=== PATIENT | female | born 1950 | race Caucasian/White ===

== ENCOUNTER 2019-11-27 00:44 | Emergency (ER) | payer OTHER, SELFPAY ==
--- NOTE | ~2019-11-27 | CT_ITS ---
EXAMINATION: CT abdomen pelvis w con EXAM DATE: 11/27/2019 02:19 INDICATION: Left lower quadrant pain. TECHNIQUE: Spiral CT of the abdomen and pelvis was performed following intravenous injection of 100 m L Omnipaque 350. Axial, coronal and sagittal images were reviewed. The dose-length product (DLP) fo r this examination was 793.42 mGy-cm. The exposure was tailored according to patient size (auto mA e xposure control), and iterative reconstruction (ASIR) was used as additional dose reduction technique . There is no prior study for comparison. FINDINGS: Small nodule within each adrenal gland probably adenomas. Several liver cysts. The liver, spleen, adrenal glands and pancreas are otherwise unremarkable. Gallbladder is unremarkable. No claudia iary obstruction. Portal and splenic veins are patent. Kidneys enhance symmetrically. There is no hydronephrosis. The uterus is not identified and has likely been surgically resected. The bladder is unremarkable. There is no retroperitoneal or pelvic lymphadenopathy. There is moderate scattere d arteriosclerotic disease. The appendix is not positively visualized. There is no pericecal inflammatory change to suggest appe ndicitis. There is a moderate to large gastroesophageal hiatal hernia. There is large amount of r ight hemicolonic stool. Small amount of left hemicolonic stool. No obstructing colonic mass suspected , but could consider follow-up colonoscopy if not recently performed. There is mild to moderate sigmo id predominant colonic diverticulosis. There is no adjacent inflammatory change to suggest diverticu litis. The heart is normal in size. There are no pericardial or pleural effusions. The lung bases a re unremarkable. Scattered mixed osteoblastic and osteolytic vertebral body regions, largest in T8, T9, L1, L2, L4. This could be metastatic disease or Paget's disease. IMPRESSION: 1. Scattered vertebral body lesions, could be metastatic disease or Paget's disease. Consider bone s can, metastatic workup. 2. Moderate to large gastroesophageal hiatal hernia. 3. Large amount of right hemicolonic stool without obstructing mass identified. Constipation. Consid er colonoscopy if not recently performed. 4. Mild to moderate colonic diverticulosis. 5. Small adrenal lesions probably adenomas. Reviewed, dictated and finalized at location A. IMPRESSION: 1. Scattered vertebral body lesions, could be metastatic disease or Paget's di sease. Consider bone scan, metastatic workup. 2. Moderate to large gastroesophageal hiatal hernia. 3. Large amount of right hemicolonic stool without obstructing mass identified . Constipation. Consider colonoscopy if not recently performed. 4. Mild to moderate colonic diverticulosis. 5. Small adrenal lesions probably adenomas.
[2019-11-27 00:49] VITALS: BP 149/70; PULSE 80; RESP 16; TEMP 36.6; O2SAT 100
[2019-11-27 01:06] VITALS: BP 151/90; PULSE 68; RESP 16; O2SAT 99
--- NOTE | 2019-11-27 01:20 | ED.ABDPAIN ---
HPI - Abdominal Pain General Chief Complaint: Urogenital-Female Stated Complaint: possible kidney stone Time Seen by Provider: 11/27/19 01:07 Source: RN notes reviewed History of Present Illness HPI narrative: Patient presents emergency department from home for left lower quadrant pain. Patient states pain began 1 day ago. Pain is described as aching and radiates in the left back. Denies any fevers or chills nausea vomiting diarrhea dysuria or any other symptoms. States she has tried taking ibuprofen and Tylenol at home with no relief denies any other symptoms at this time Related Data Home Medications Medication Instructions Recorded Confirmed aspirin 81 mg tablet,delayed 81 mg PO DAILY 06/13/19 release cholecalciferol (vitamin D3) 125 5,000 unit PO DAILY 06/13/19 mcg (5,000 unit) tablet divalproex 500 mg tablet,delayed 500 mg PO TID tablet 06/13/19 release fenofibrate 160 mg tablet 160 mg PO DAILY 06/13/19 mupirocin 2 % topical ointment 1 applic TOPICAL TID 06/13/19 sitagliptin 100 mg tablet 100 mg PO DAILY 06/13/19 Allergies Allergy/AdvReac Type Severity Reaction Status Date / Time prochlorperazine Allergy Intermediate LOCK JAW Verified 06/13/19 11:19 Review of Systems Review of Systems: Narrative: Gen.: Denies fevers or chills ENT: Denies congestion Respiratory: Denies shortness of breath or cough CV: Denies chest pain or palpitations GI: See HPI denies burning, urgency, frequency or hematuria Musculoskeletal: Denies back pain or muscle pain Neuro: Denies numbness, tingling, weakness or focal weakness Skin: Denies rash Except as documented, all other systems reviewed and negative [facility] Past Medical History Medical History (Updated 11/27/19 @ 04:17 by Hammad Persaud DO) Hypertension Family History Family History (Updated 05/09/16 @ 08:27 by DOCTOR UNKNOWN) Mother Family history of malignant neoplasm of breast in first degree relative Other Family history of cardiovascular disease Family history of malignant neoplasm Hypertension Social History Social History Smoking packs per day: 1 Smoking cigarettes per day: 20.0 Years smoked: 30 Smoking pack-years: 30.00 Smoking status: Former smoker Second hand tobacco smoke exposure: No Smoking end date: 06/01/15 Alcohol intake: current Drinks per week: 1 Substance use: never Substance use type: does not use Gender identity (if verbalized by the patient): Female Exam Narrative: Exam Narrative: APPEARANCE: No acute distress, nontoxic, resting in bed HEENT: Normocephalic, atraumatic, OMM RESPIRATORY: No respiratory distress, clear to auscultation bilaterally with no rhonchi wheezing or rales CARDIOVASCULAR: RRR s murmur ABDOMINAL: Soft, nondistended, tender palpation left lower quadrant, no tenderness left upper quadrant, right upper quadrant right lower quadrant, no rebound or guarding MUSCULOSKELETAl: Moves all extremities. No clubbing, cyanosis or edema. Back: No midline thoracic lumbar tenderness palpation, tender palpation of the left paravertebral muscles L2 2 and 3 NEURO: Awake and alert. Following commands, speech normal, no focal deficits SKIN:: Warm, dry. Normal Color no rashes seen PSYCHIATRIC: Normal affect/mood Course Course Emergency Course: Reviewed old records. Patient with history of breast cancer Discussed with Dr. Mcknight presentation work-up. Discussed CT results with areas of sclerosis and vertebral bodies will follow as an outpatient Discussed with patient results of workup and diagnosis. Discussed need for follow-up with primary care, proper use of medication, and reasons to return to the emergency department. Patient understands and agrees to current treatment plan. Discussed with patient CT results discussed concern of possible metastatic disease need for further outpatient evaluation Secondary to renal disease now on
[2019-11-27] MEDS: SODIUM CHLORIDE 0.9% IV 1,000 ML 999 ML IV CONT (01:24)
[2019-11-27 01:51] LABS: Basophils Absolute Auto 0.1 K/mm3 (0.0-0.1); Eosinophils Absolute Auto 0.3 K/mm3 (0-0.3); Eosinophils Percent Auto 3.6 % (0-4.4); Hemoglobin 11.7 g/dL (12.0-15.0); Immature Granulocyte Absolute 0.02 K/mm3 (0.00-0.031); Immature Granulocyte Percent A 0.3 % (0-0.5); Lymphocytes Absolute Auto 2.26 K/mm3 (0.9-3.2); Lymphocytes Percent Auto 28.4 % (18.3-44.2); Mean Corpuscular HGB Conc 32.5 g/dl (32-36); Mean Corpuscular Hemoglobin 28.9 pg (26-34); Mean Corpuscular Volume 88.9 fl (80-100); Mean Platelet Volume 9.7 fl (7.4-10.4); Monocytes Absolute Auto 0.6 K/mm3 (0.1-0.6); Monocytes Percent Auto 7.3 % (2.6-8.5); Neutrophils Absolute Auto 4.7 K/mm3 (1.3-6.7); Neutrophils Percent Auto 59.4 % (45.5-73.1); Platelet Count Result 308 k/mm3 (150-375); Red Blood Count 4.05 M/mm3 (4.2-5.4); Red Cell Distribution Width 13.6 % (11.5-14.5)
[2019-11-27 01:53] LABS: Add Urine Microscopic? NO; Appearance Urine Clear (Clear); Bilirubin Urine Negative (Negative); Blood Urine Negative (Negative); Color Urine Yellow (Yellow); Glucose Urine UA Negative (Negative); Ketones Urine Negative (Negative); Leukocyte Esterase Ur Negative LEU/UL (Negative); Nitrate Urine Negative (Negative); Protein Urine Negative (Negative); Specific Grav Ur 1.014 (1.001-1.035); Urobilinogen Urine Negative mg/dL (<2.0)
[2019-11-27 02:02] LABS: Alanine Aminotransferase 13 U/L (4-35); Albumin Level 4.4 g/dL (3.5-5.1); Alkaline Phosphatase 52 U/L (38-126); Aspartate Amino Transferase 23 U/L (14-36); Bilirubin,Total 0.3 mg/dL (0.2-1.3); Blood Urea Nitrogen 32 mg/dL (7-17); Carbon Dioxide 24 mmol/L (22-30); Chloride 102 mmol/L (98-107); Estimated Glomerular Filt Rate 34; Glucose 122 mg/dL (65-105); Lipase 179 U/L (23-300); Potassium 4.2 mmol/L (3.4-5.0); Sodium 135 mmol/L (137-145)
[2019-11-27 03:10] VITALS: BP 189/95; PULSE 68; RESP 20; O2SAT 100
[2019-11-27 05:07] VITALS: BP 184/87; PULSE 81; RESP 18; O2SAT 100
== END 2019-11-27 05:05 | disposition home or self-care (01) ==
PROVIDERS: Emergency Provider Emergency Medicine; PCP Family Medicine
DX: R10.32 Left lower quadrant pain (principal); M54.5 Low back pain; I10 Essential (primary) hypertension; Z87.891 Personal history of nicotine dependence; Z79.82 Long term (current) use of aspirin
CPT/HCPCS: 36415; 74177; 80053; 81003; 83690; 85025; 96361; 96374; 99284; J0131; J7030; Q9967

== ENCOUNTER 2019-12-14 11:17 | Outpatient (CLI) | payer OTHER, SELFPAY ==
--- NOTE | ~2019-12-14 | NM_ITS ---
EXAMINATION: NM bone scan whole body DATE: 12/14/2019 14:26 INDICATION: MGUS. Lytic bone lesions on radiographs. TECHNIQUE: 20.8 mCi Tc-99m HDP was administered intravenously. Delayed whole-body scintigrams were o btained. COMPARISON: CT abdomen and pelvis dated 11/27/2019 FINDINGS: There is increased bone uptake associated with multiple mixed lytic and sclerotic bone lesions includ ing at T8, T9, L1, L2 and L4. Additional uptake at T7 which cause of imaging is not available. More t ypical pattern of mild likely degenerative joint centered uptake at the bilateral sternoclavicular ar ticulations, the radial aspect of the bilateral carpi, at the bilateral knees and at the multiple vimal nts in the bilateral feet most prominent at the mid feet and left first metatarsophalangeal joint. Sm all focus of increased uptake at the left elbow could also be related to osteoarthritis or extravasat ion at the site of radiotracer injection. Mild increased uptake at the left greater trochanter withou t definitive radiologic correlate which could be related to either enthesopathy or additional metasta tic disease. IMPRESSION: 1. Increased uptake associated with multiple mixed lytic and sclerotic vertebral body lesions in the lumbar and lower thoracic spine with appearance on CT most suspicious for metastatic disease 2. Additional typical pattern of scattered likely degenerative joint centered uptake at the bilateral sternoclavicular joints and at multiple joints in the extremities. Reviewed, dictated and finalized at location A. IMPRESSION: 1. Increased uptake associated with multiple mixed lytic and sclerotic vertebra l body lesions in the lumbar and lower thoracic spine with appearance on CT mos t suspicious for metastatic disease 2. Additional typical pattern of scattered likely degenerative joint centered u ptake at the bilateral sternoclavicular joints and at multiple joints in the ex tremities.
== END 2019-12-14 11:18 | disposition home or self-care (01) ==
PROVIDERS: PCP Family Medicine; Visit Provider Internal Medicine Medical Oncology
DX: D47.2 Monoclonal gammopathy (principal); M54.5 Low back pain; M89.9 Disorder of bone, unspecified
CPT/HCPCS: 78306; A9561

== ENCOUNTER → 2020-01-02 12:13 | Outpatient (CLI) | payer OTHER, SELFPAY ==
--- NOTE | ~2020-01-02 | MR_ITS ---
EXAMINATION: MR thoracic spine wo con EXAM DATE: 01/02/2020 13:11 INDICATION: Monoclonal gammopathy. TECHNIQUE: Multi-sequential, multiplanar MR images of the thoracic spine were obtained without contra st. Sagittal T1, T2, T2 fat saturation, axial T2 weighted images reviewed. There is no prior study for comparison. FINDINGS: Large lesion within the T9 vertebral body, small lesion within T8. No epidural extension. T horacic spinal canal is widely patent. Mild thoracic disc disease. The vertebral body heights are alessandra ntained. There is mild right neural foraminal stenosis at T8-9 and 9-10. The vertebral bodies are ali gned in the AP dimension. The spinal cord signal intensity and intrinsic morphology is normal. There is mild thoracic facet arthropathy. Large gastroesophageal hiatal hernia. Paraspinal soft tissue is u nremarkable. IMPRESSION: T8 and T9 metastatic lesions without epidural extension. Mild thoracic spondylosis. Reviewed, dictated and finalized at location A. IMPRESSION: T8 and T9 metastatic lesions without epidural extension. Mild thor acic spondylosis.
--- NOTE | ~2020-01-02 | MR_ITS ---
EXAMINATION: MR lumbar spine wo con EXAM DATE: 01/02/2020 13:18 INDICATION: Severe mid to low back pain, for couple of months. Monoclonal gammopathy. History of mandi st cancer. TECHNIQUE: Multi-sequential, multiplanar MR images of the lumbar spine were obtained without contrast . Sagittal T1, T2, T2 fat saturation images. Axial T2 weighted images. There is no prior study for comparison. FINDINGS: There are bone sizable bone lesions within the L1 and L4 vertebral bodies, smaller in the l eft side of the L2 vertebral body and the L5 vertebral body superior endplate. No extraosseous extens ion. The conus medullaris terminates at the L1/2 level and has normal signal intensity and morphology . There is chronic L5 spondylolysis bilaterally with 6 mm anterolisthesis L5 on S1. Mild to moderate lumbar disc disease. Level by level evaluation: T12-L1: There is a minimal diffuse disc bulge. Facet arthropathy: Mild. Neural foraminal stenosis: No stenosis. Central canal stenosis: No stenosis. L1-L2: There is a minimal diffuse disc bulge. Facet arthropathy: Mild to moderate. Neural foraminal stenosis: No stenosis. Central canal stenosis: No stenosis. L2-L3: There is a mild diffuse disc bulge. Facet arthropathy: Mild to moderate. Neural foraminal stenosis: Mild bilateral. Central canal stenosis: Mild. L3-L4: There is a mild diffuse disc bulge. Facet arthropathy: Mild to moderate. Neural foraminal stenosis: Mild bilateral. Central canal stenosis: Mild. L4-L5: There is a moderate diffuse disc bulge asymmetric to the left Facet arthropathy: Mild to moderate. Neural foraminal stenosis: Mild to moderate bilateral. Central canal stenosis: Mild. L5-S1: There is a moderate diffuse disc bulge. Facet arthropathy: Mild to moderate. Neural foraminal stenosis: Mild to moderate bilateral. Central canal stenosis: Mild. IMPRESSION: 1. Scattered metastatic disease without evidence of extraosseous epidural extension. 2. L5 bilateral spondylolysis, grade 1 anterolisthesis. 3. Mild to moderate lumbar spondylosis. Reviewed, dictated and finalized at location A. IMPRESSION: 1. Scattered metastatic disease without evidence of extraosseous epidural exte nsion. 2. L5 bilateral spondylolysis, grade 1 anterolisthesis. 3. Mild to moderate lumbar spondylosis.
== END ==
PROVIDERS: Visit Provider Internal Medicine Medical Oncology
DX: D47.2 Monoclonal gammopathy (principal); C50.919 Malignant neoplasm of unspecified site of unspecified female breast; M47.816 Spondylosis without myelopathy or radiculopathy, lumbar region; C79.51 Secondary malignant neoplasm of bone
CPT/HCPCS: 72146; 72148

== ENCOUNTER 2020-01-02 13:39 | Outpatient (CLI) | payer OTHER, SELFPAY ==
[2020-01-02 14:31] LABS: Alanine Aminotransferase 17 U/L (4-35); Alkaline Phosphatase 45 U/L (38-126); Anion Gap 13.8 mmol/L (7-16); Aspartate Amino Transferase 25 U/L (14-36); Bilirubin,Total 0.2 mg/dL (0.2-1.3); Blood Urea Nitrogen 30 mg/dL (7-17); Calcium 9.7 mg/dL (8.4-10.2); Carbon Dioxide 24 mmol/L (22-30); Chloride 102 mmol/L (98-107); Estimated Glomerular Filt Rate 37; Glucose 96 mg/dL (65-105); Potassium 4.8 mmol/L (3.4-5.0); Sodium 135 mmol/L (137-145)
[2020-01-02 15:01] LABS: Carcinoembryonic Antigen 41.9 ng/mL (0.0-3.0)
[2020-01-05 13:20] LABS: CA 15-3 44 U/mL (<32)
== END 2020-01-02 13:40 | disposition home or self-care (01) ==
PROVIDERS: PCP Family Medicine; Visit Provider Internal Medicine Medical Oncology
DX: C50.919 Malignant neoplasm of unspecified site of unspecified female breast (principal)
CPT/HCPCS: 36415; 80053; 82378; 86300

== ENCOUNTER 2020-03-16 16:24 | Outpatient (CLI) | payer OTHER, SELFPAY ==
--- NOTE | ~2020-03-16 | MR_ITS ---
EXAMINATION: MR brain/brain stem wo con EXAM DATE: 03/16/2020 17:16 INDICATION: Initial encounter following injury, with pain of the and intractable headaches. TECHNIQUE: Magnetic resonance imaging (MRI) of the brain/brain stem obtained without contrast. Sagitt al T1, axial diffusion, gradient echo (T2*), T1, T2, FLAIR sequences obtained. There is no prior kait dy for comparison. FINDINGS: There are no areas of restricted diffusion to suggest acute infarction. There is a right-si ded choroidal fissure cyst. There is no acute hemorrhage seen on the T2*, a hemosiderin sensitive seq uence. No intraparenchymal brain mass. The ventricles are normal in size. There are no extra-axial collections. Flow voids are seen in the cerebral arteries on the T2-weighted sequences consistent wi th their expected patency. The orbits are unremarkable. Soft tissue is unremarkable. Mild ethmoid mucoperiosteal thickening. IMPRESSION: 1. Unremarkable brain MRI examination. Reviewed, dictated and finalized at location A.
== END 2020-03-16 16:25 | disposition home or self-care (01) ==
PROVIDERS: PCP Family Medicine; Visit Provider Internal Medicine Medical Oncology
DX: R51.9 Headache, unspecified (principal)
CPT/HCPCS: 70551

== ENCOUNTER 2021-03-08 12:34 | Outpatient (CLI) | payer OTHER, SELFPAY ==
--- NOTE | ~2021-03-08 | CT_ITS ---
EXAMINATION: CT brain wo con DATE: 03/08/2021 12:56 INDICATION: Breast malignancy with metastases TECHNIQUE: Computed tomography (CT) of the head was performed without intravenous contrast. The mA wa s adjusted according to patient size. Iterative reconstruction technique was employed. Exam dose: 60 5.33 mGy-cm total exam DLP. COMPARISON: 03/16/2020 MRI brain/brainstem FINDINGS: No intracranial mass lesion or hemorrhage or cerebrovascular accident. No midline shift or mass effect. Prominent right choroidal fissure cyst. There is prominent bilateral carotid siphon internal carotid artery calcification as well as vertebra l and basilar artery calcification. There is nonspecific diminished attenuation of the cerebral white matter, likely due to chronic small vessel ischemic changes. No subdural or epidural hematoma is detected. Iliolumbar 4 cm polyp or mucous retention cyst of left maxillary sinus. The mastoid air cells and inc luded paranasal sinuses are otherwise unremarkable. No fracture or bone destruction of the cranial vault. IMPRESSION: Cerebral atherosclerosis and chronic small vessel ischemic changes of the cerebral white matter Reviewed, dictated and finalized at Location A. Reviewed, dictated and finalized at location A.
--- NOTE | ~2021-03-08 | CT_ITS ---
EXAMINATION: CT chest abdomen pelvis wo con DATE: 03/08/2021 12:57 INDICATION: Metastatic breast cancer, shortness of breath TECHNIQUE: Transaxial computed tomographic images of the chest, abdomen, and pelvis were obtained wit hout intravenous contrast. The dose-length product (DLP) was 977.10 mGy-cm. Automated exposure contro l and iterative reconstruction technique were employed. COMPARISON: 11/27/2019 FINDINGS: CHEST CT: The lungs are free of acute opacities. There is a chronic area of focal architectural distortion in t he left lower lobe without significant change. No pleural effusion or pneumothorax is identified. The heart size is normal. Calcified coronary artery atherosclerosis is noted. A left axillary lymph node is upper limits of normal in size measuring 10 mm. There are changes of bilateral mastectomy. There is a moderate-sized sliding hiatal hernia. There are sclerotic vertebral body lesions of T8 and T9. ABDOMEN/PELVIS CT: Cysts of the liver measure up to 3.7 cm in the right hepatic lobe. The spleen, pancreas, and gallblad joyce are normal. Small stable nodules in the adrenal glands are consistent with adenomas. The kidneys are unremarkable. There is calcified atherosclerosis of the aorta and many of the other arteries. No pathologically enlarged abdominal or pelvic lymph nodes are identified. There is no free intraperiton eal gas or evidence of bowel obstruction. Colonic diverticulosis is present without evidence of diver ticulitis. Sclerotic lesions of L1 and L4 are unchanged. There are bilateral L5 pars defects with gra de 1 anterolisthesis of L5 on S1. IMPRESSION: 1. Stable sclerotic vertebral body lesions without activity on interval bone scan. 2. No significant findings in the chest, abdomen, or pelvis. Reviewed, dictated and finalized at location F. IMPRESSION: 1. Stable sclerotic vertebral body lesions without activity on interval bone sc an. 2. No significant findings in the chest, abdomen, or pelvis.
== END 2021-03-08 12:35 | disposition home or self-care (01) ==
LOC: ANHIMG 12:40
PROVIDERS: PCP Family Medicine; Visit Provider Internal Medicine Medical Oncology
DX: C50.919 Malignant neoplasm of unspecified site of unspecified female breast (principal); R42 Dizziness and giddiness; M89.9 Disorder of bone, unspecified; I67.2 Cerebral atherosclerosis
CPT/HCPCS: 70450; 71250; 74176

== ENCOUNTER 2021-05-20 12:47 | Outpatient (CLI) | payer OTHER, SELFPAY ==
--- NOTE | ~2021-05-20 | CT_ITS ---
EXAMINATION: CT chest abdomen pelvis wo con DATE: 05/20/2021 13:10 INDICATION: Restaging of malignant metastatic breast cancer with bone metastases TECHNIQUE: Computed tomography (CT) of the chest, abdomen, and pelvis was performed without intraveno us contrast. Automated exposure control and iterative reconstruction technique were employed. Exam do se: 1162.23 mGy-cm total exam DLP. COMPARISON: 03/08/2021 CT chest abdomen pelvis 11/27/2019 CT abdomen pelvis FINDINGS: CHEST CT: The lungs are clear of infiltrate or consolidation or mass lesion. There is chronic focal scarring in the left lower lobe, stable since 03/28/2021 and 11/19/2019. There is prominent coronary artery calcification as well as thoracic aortic and great vessel calcific ation. Normal heart size. No hilar or mediastinal mass lesion or lymphadenopathy. There is a large sliding hiatal hernia. ABDOMEN/PELVIS CT: Several hepatic cysts previously reported measuring up to 3.7 cm are noted, including the largest in the lower aspect of the right hepatic lobe and 2.5 cm left hepatic cysts. No interval hepatic space-o ccupying mass lesion. The gallbladder is unremarkable. No bile duct or pancreatic duct dilatation. No pancreatic mass lesio n or calcification. Normal splenic size. The adrenal glands appears stable with suggestion of possibl e small adrenal adenomas. No renal mass lesion or urinary tract calculus or hydroureteronephrosis is detected. The urinary blad joyce is unremarkable. Status post hysterectomy. There is atherosclerotic calcification of the abdominal aorta and branches but no abdominal aortic an eurysm. No intraperitoneal or retroperitoneal or pelvic mass lesion or adenopathy or ascites. There are numerous diverticula involving primarily the left colon; no CT evidence of diverticulitis. No bowel obstruction, bowel wall thickening, pneumatosis or intraperitoneal free air. There are sclerotic lesions of T8, T9, L1, L4 and L5, stable since 03/08/2021. Bilateral L5 pars interarticularis defects and grade 1 anterolisthesis as well as degenerative disc d isease at L5-S1. IMPRESSION: Stable sclerotic lesions of the thoracic and lumbar spine consistent with metastatic dis ease, not significantly changed since 03/08/2021 Chronic focal scarring, left lower lobe Prominent atherosclerosis Large sliding hiatal hernia Stable hepatic cysts Probable small adrenal adenomas Status post hysterectomy Diverticulosis of the colon; no CT evidence of diverticulitis Reviewed, dictated and finalized at Location A. Reviewed, dictated and finalized at location B. 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
== END 2021-05-20 12:48 | disposition home or self-care (01) ==
LOC: ANHIMG 12:51
PROVIDERS: PCP Family Medicine; Visit Provider Internal Medicine Medical Oncology
DX: M47.817 Spondylosis without myelopathy or radiculopathy, lumbosacral region (principal); K44.9 Diaphragmatic hernia without obstruction or gangrene; K76.89 Other specified diseases of liver; M89.8X9 Other specified disorders of bone, unspecified site; I70.0 Atherosclerosis of aorta
CPT/HCPCS: 71250; 74176

== ENCOUNTER 2021-07-17 12:29 | Outpatient (CLI) | payer OTHER, SELFPAY ==
--- NOTE | ~2021-07-17 | MR_ITS ---
EXAMINATION: MR lumbar spine wo con EXAM DATE: 07/17/2021 13:38 INDICATION: Malignant Neoplasm Of Female Breast . Monoclonal gammopathy. Metastatic disease on CT dominique st abdomen pelvis. TECHNIQUE: Multi-sequential, multiplanar MR images of the lumbar spine were obtained without contrast . Sagittal T1, T2, T2 fat saturation images. Axial T2 weighted images. Comparison is made to prior examination from 01/02/2020. FINDINGS: There is metastatic disease taking up sizable portion of the L1 and L4 vertebral bodies, sm aller regions in the L2 and L5 vertebral bodies. There may be minimal interval progression compared t o 2019, but no extraosseous extension. There is chronic bilateral L5 spondylolysis with grade 1 anter olisthesis L5 on S1 and moderate right neural foraminal stenosis at that level. Mild to moderate L4-5 left-sided and L3-4 right-sided neural foraminal stenosis. Less at the other lumbar levels. Moderate facet arthropathy from L3-S1. Moderate loss of the disc height from L3-S1. There are moderate disc b ulges at L4-5 and L5-S1. The conus medullaris terminates at the L1/2 level and has normal signal inte nsity and morphology. IMPRESSION: 1. Lumbar metastatic disease, minimal progression compared to 2019. 2. Moderate lower lumbar spondylosis, with mild interval progression in right L5-S1 neural foraminal stenosis. Reviewed, dictated and finalized at location G. 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
== END 2021-07-17 12:30 | disposition home or self-care (01) ==
PROVIDERS: PCP Family Medicine; Visit Provider Internal Medicine Medical Oncology
DX: C50.919 Malignant neoplasm of unspecified site of unspecified female breast (principal); M54.50 Low back pain, unspecified; C79.51 Secondary malignant neoplasm of bone; M47.816 Spondylosis without myelopathy or radiculopathy, lumbar region; M48.07 Spinal stenosis, lumbosacral region
CPT/HCPCS: 72148

== ENCOUNTER 2021-08-29 11:00 | Outpatient (RCR) | payer OTHER, SELFPAY ==
[2021-07-16 11:01] VITALS: BMI 34.3
[2021-07-16 15:16] VITALS: BMI 34.3
== END 2021-10-01 10:22 | disposition home or self-care (01) ==
LOC: ANHDMC 11:00
PROVIDERS: PCP Family Medicine; Visit Provider Physician Assistant
DX: E11.22 Type 2 diabetes mellitus with diabetic chronic kidney disease (principal); Z71.3 Dietary counseling and surveillance; Z71.89 Other specified counseling
CPT/HCPCS: 97802; G0108

== ENCOUNTER 2021-09-11 10:13 | Outpatient (CLI) | payer OTHER, SELFPAY ==
[2021-09-11 10:36] LABS: Basophils Absolute Auto 0.1 K/mm3 (0.0-0.1); Basophils Percent Auto 0.9 % (0.2-1.2); Eosinophils Absolute Auto 0.3 K/mm3 (0-0.3); Eosinophils Percent Auto 4.6 % (0-4.4); Hematocrit 35.2 % (37.0-47.0); Hemoglobin 10.8 g/dL (12.0-15.0); Immature Granulocyte Absolute 0.02 K/mm3 (0.00-0.031); Immature Granulocyte Percent A 0.3 % (0-0.5); Lymphocytes Absolute Auto 0.93 K/mm3 (0.9-3.2); Lymphocytes Percent Auto 15.9 % (18.3-44.2); Mean Corpuscular HGB Conc 30.7 g/dl (32-36); Mean Corpuscular Hemoglobin 26.3 pg (26-34); Mean Corpuscular Volume 85.9 fl (80-100); Mean Platelet Volume 9.4 fl (7.4-10.4); Monocytes Absolute Auto 0.5 K/mm3 (0.1-0.6); Monocytes Percent Auto 8.4 % (2.6-8.5); Neutrophils Absolute Auto 4.1 K/mm3 (1.3-6.7); Neutrophils Percent Auto 69.9 % (45.5-73.1); Platelet Count Result 190 k/mm3 (150-375); Red Cell Distribution Width 15.7 % (11.5-14.5); White Blood Count 5.9 K/mm3 (4.5-10.0)
[2021-09-11 10:53] LABS: Alanine Aminotransferase 11 U/L (4-35); Albumin Level 4.2 g/dL (3.5-5.1); Alkaline Phosphatase 54 U/L (38-126); Anion Gap 9 mmol/L (8-16); Aspartate Amino Transferase 22 U/L (14-36); Bilirubin,Total 0.4 mg/dL (0.2-1.3); Blood Urea Nitrogen 37 mg/dL (7-17); Calcium 9.5 mg/dL (8.4-10.2); Carbon Dioxide 26 mmol/L (22-30); Chloride 99 mmol/L (98-107); Estimated Glomerular Filt Rate 26; Glucose 210 mg/dL (65-110); Potassium 4.2 mmol/L (3.4-5.0); Sodium 134 mmol/L (137-145)
[2021-09-11 10:55] LABS: Hemoglobin A1C 6.8 % (<5.7)
[2021-09-11 11:02] LABS: Appearance Urine Clear (Clear); Bilirubin Urine Negative (Negative); Color Urine Yellow (Yellow); Glucose Urine UA Negative (Negative); Ketones Urine Negative (Negative); Leukocyte Esterase Ur Negative LEU/UL (NEGATIVE); Nitrate Urine Negative (Negative); Protein Urine Negative (Negative); Specific Grav Ur >= 1.030 (1.001-1.035); Urobilinogen Urine 0.2 mg/dL (<2.0); pH Urine 5.5 (5.0-9.0)
[2021-09-11 11:03] LABS: Add Urine Microscopic? YES; Blood Urine Trace-Intact (Negative)
[2021-09-11 11:11] LABS: Mucus Urine Rare /lpf; RBC Urine 0-2 /hpf (0-2); Squamous Epithelial Cell Urine Rare /hpf (Few)
== END 2021-09-11 10:14 | disposition home or self-care (01) ==
LOC: ANHLAB 10:16
PROVIDERS: PCP Family Medicine; Visit Provider Physician Assistant
DX: R42 Dizziness and giddiness (principal); E11.22 Type 2 diabetes mellitus with diabetic chronic kidney disease; I10 Essential (primary) hypertension; R53.1 Weakness
CPT/HCPCS: 36415; 80053; 81001; 83036; 84443; 85025; 87086; 87088

== ENCOUNTER 2021-09-20 13:58 | Outpatient (CLI) | payer OTHER, SELFPAY ==
--- NOTE | ~2021-09-20 | US_ITS ---
EXAMINATION: US carotid duplex BI DATE: 09/20/2021 15:08 INDICATION: Dizziness and giddiness. Cerebral atherosclerosis. TECHNIQUE: Grayscale, color Doppler, and pulsed Doppler images of the cervical carotid arteries were obtained. The degree of vessel stenosis is placed in one of the following categories: normal, <50%, 5 0-69%, >=70% but less than near-occlusion, near-occlusion, or total occlusion. Note that percent sten osis relative to normal distal artery lumen diameter is indirectly measured from velocity measurement s as described by Greg, et al. Radiology 2003; 229:340-346. COMPARISON: None. FINDINGS: RIGHT: The right common carotid artery (CCA) peak systolic velocity (PSV) is 53 cm/s. The right internal car otid artery (ICA) PSV is 76 cm/s. The right ICA end-diastolic velocity (EDV) is 19 cm/s. The right IC A/CCA PSV ratio is 1.4. Grayscale and color Doppler images yield an estimate of <50% diameter reducti on from plaque in the ICA. The external carotid artery (ECA) PSV is 117 cm/s. There is antegrade flow in the right vertebral artery. LEFT: The left CCA PSV is 50 cm/s. The left ICA PSV is 81 cm/s. The left ICA EDV is 16 cm/s. The left ICA/C CA PSV ratio is 1.6. Grayscale and color Doppler images yield an estimate of <50% diameter reduction from plaque in the ICA. The ECA PSV is 85 cm/s. There is antegrade flow in the left vertebral artery. IMPRESSION: 1. <50% stenosis in the right internal carotid artery. 2. <50% stenosis in the left internal carotid artery. Reviewed, dictated and finalized at location A.
== END 2021-09-20 13:59 | disposition home or self-care (01) ==
LOC: ANHIMG 14:02
PROVIDERS: PCP Family Medicine; Visit Provider Physician Assistant
DX: R42 Dizziness and giddiness (principal); H53.139 Sudden visual loss, unspecified eye; I65.23 Occlusion and stenosis of bilateral carotid arteries
CPT/HCPCS: 93880

== ENCOUNTER 2021-10-16 09:41 | Outpatient (CLI) | payer OTHER, SELFPAY ==
--- NOTE | ~2021-10-16 | CT_ITS ---
EXAMINATION: CT brain wo con DATE: 10/16/2021 10:00 INDICATION: Dizziness. Sudden visual loss. TECHNIQUE: Computed tomography (CT) of the head was performed without intravenous contrast. The dose- length product was 605.33 mGy-cm. Automated exposure control and iterative reconstruction technique w ere employed. COMPARISON: CT dated 03/08/2021 and MRI dated 03/16/2020 FINDINGS: Brain parenchymal volume is normal for age. Prominent right choroidal fissure. There are sc attered mild periventricular and subcortical white matter changes, most likely related to small vesse l ischemic disease (microangiopathy). There is intracranial atherosclerosis. Orbits are symmetric wit hout disconjugate gaze. No acute intracranial hemorrhage, infarction, mass or mass effect. Paranasal sinuses and mastoids are pneumatized. IMPRESSION: 1. No acute intracranial abnormality. Reviewed, dictated and finalized at location A.
== END 2021-10-16 09:42 | disposition home or self-care (01) ==
PROVIDERS: PCP Family Medicine; Visit Provider Physician Assistant
DX: G45.9 Transient cerebral ischemic attack, unspecified (principal); R42 Dizziness and giddiness
CPT/HCPCS: 70450

== ENCOUNTER 2022-01-21 12:28 | Outpatient (CLI) | payer OTHER, SELFPAY ==
--- NOTE | ~2022-01-21 | XR_ITS ---
EXAMINATION: XR chest 2V DATE: 01/21/2022 12:52 INDICATION: Shortness of breath, history of breast cancer TECHNIQUE: PA and lateral views of the chest are obtained. COMPARISON: CT, 05/20/2021 FINDINGS: There is a 9 mm opacity projecting over the right midlung zone. No pleural effusion or pneu mothorax. There is a moderate-sized hiatal hernia. The heart size is normal. Sclerotic osseous metast ases are noted in the thoracic spine. IMPRESSION: 1. 9 mm opacity projecting over the right midlung zone which could reflect lung nodule versus sclerot ic rib lesion. 2. Moderate-sized hiatal hernia. 3. Sclerotic vertebral body metastases. Reviewed, dictated and finalized at location B. IMPRESSION: 1. 9 mm opacity projecting over the right midlung zone which could reflect lung nodule versus sclerotic rib lesion. 2. Moderate-sized hiatal hernia. 3. Sclerotic vertebral body metastases.
== END 2022-01-21 12:29 | disposition home or self-care (01) ==
LOC: ANHIMG 12:35
PROVIDERS: PCP Family Medicine; Visit Provider Physician Assistant
DX: R06.09 Other forms of dyspnea (principal); R91.8 Other nonspecific abnormal finding of lung field; K44.9 Diaphragmatic hernia without obstruction or gangrene; C79.51 Secondary malignant neoplasm of bone
CPT/HCPCS: 71046

== ENCOUNTER 2022-01-27 09:36 | Outpatient (CLI) | payer OTHER, SELFPAY ==
--- NOTE | ~2022-01-27 | CT_ITS ---
EXAMINATION: CT chest abdomen pelvis wo con DATE: 01/27/2022 10:55 INDICATION: Malignant neoplasm of female breast. TECHNIQUE: Computed tomography (CT) of the chest, abdomen, and pelvis was performed without intraveno us contrast. Automated exposure control and iterative reconstruction technique were employed. The dos e-length product was 1067.45 mGy-cm. COMPARISON: CT chest, abdomen, and pelvis 05/20/2021, CT abdomen and pelvis 11/27/19 FINDINGS: CHEST CT: There is mild scarring at left lung apex. There is mild atelectasis in left lower lobe. There is a 16 mm groundglass opacity in left lower lobe, likely benign. There are a few chronic nodules in the manas gs measuring up to 3 mm. No pleural effusion. The heart size is normal. There are coronary artery miya cifications. There are calcifications of the aortic valve. There is ectasia of ascending aorta measur ing 4.2 cm. No pericardial effusion. There is a moderate-sized sliding hiatal hernia. There are bilat eral mastectomies. There is a ruptured implant in left breast. There are a few scattered sclerotic le sions of bone including in right eighth rib, T7 spinous process, and T8 and T9 vertebral bodies. ABDOMEN/PELVIS CT: There are cysts in the liver measuring up to 3.3 cm. There are more than 10 masses in the liver measu ring up to 17 mm. The gallbladder, spleen, pancreas, and adrenal glands are normal. There is cortical thinning of the kidneys. There is diverticulosis of the colon without evidence of diverticulitis. Th ere are no dilated loops of bowel. The appendix is not visualized. There are no pathologically enlarg ed lymph nodes. There is no free intraperitoneal fluid. There is areas of subcutaneous fat necrosis i n the buttocks. There are a few scattered sclerotic lesions of bone including in L1, L2, L4, and L5 v ertebral bodies. IMPRESSION: 1. Worsened liver masses and stable bone lesions, consistent with metastatic disease. Reviewed, dictated and finalized at location A. IMPRESSION: 1. Worsened liver masses and stable bone lesions, consistent with metastatic di sease.
[2022-01-27 10:03] LABS: Estimated Glomerular Filt Rate 28
== END 2022-01-27 09:37 | disposition home or self-care (01) ==
PROVIDERS: PCP Family Medicine; Visit Provider Internal Medicine Medical Oncology
DX: C50.919 Malignant neoplasm of unspecified site of unspecified female breast (principal); C79.51 Secondary malignant neoplasm of bone; R16.0 Hepatomegaly, not elsewhere classified
CPT/HCPCS: 71250; 74176

== ENCOUNTER 2022-02-14 13:02 | Outpatient (CLI) | payer OTHER, SELFPAY ==
--- NOTE | 2022-02-17 14:08 | P.PCNPFT_ITS ---
PFT Procedure Performed PFT Procedure Performed Spirometry with Pre/Post Bronchodilator Plethysmography (Lung Vol) Diffusing Cap (DLCO) Flow Vol Loop PFT Interpretation This is a pulmonary function test with pre and post-bronchodilator spirometry, plethysmography and diffusing capacity. The test was performed and results interpreted in accordance with the 2019 and 2005 ATS/ERS Task Force guidelines respectively using the Global Lung Function Initiative-2012 reference equations. Patient demonstrated good effort and cooperation. Reproducibility criteria were met. The quality of the pre bronchodilator spirometry maneuver was Grade A and post bronchodilator spirometry maneuver was Grade A. Findings: Spirometry: There is decreased maximal expiratory airflow at all lung volumes with concave expiratory flow tracing. The pre bronchodilator FVC is 2.05 L, 71% predicted. The pre bronchodilator FEV1 is 1.06 L, 48% predicted. The pre bronchodilator FEV1: FVC ratio is 52%. The post bronchodilator FVC is 2.38 L, representing a 16% increase. The post bronchodilator FEV1 is 1.33 L, representing a 25% increase. The post bronchodilator FEV1: FVC ratio is 56%. Plethysmography: The total lung capacity is 5.09 L, 98% predicted. The functional residual capacity is 3.69 L, 124% predicted. The residual volume is 3.04 L, 134% predicted. Diffusion capacity: The diffusing capacity unadjusted for hemoglobin and carboxyhemoglobin is 10.1, 49% predicted. The diffusing capacity adjusted for a lveolar volume is 2.99, 71% predicted. Impression: There is a severe obstructive abnormality with significant improvement after inhaling a single dose of albuterol. The lung volumes are normal. The diffusing capacity unadjusted for hemoglobin and carboxyhemoglobin is moderately decreased and normalizes when adjusted for alveolar volume. There are no prior studies for comparison
== END 2022-02-14 13:03 | disposition home or self-care (01) ==
LOC: ANHPFT 13:04
PROVIDERS: PCP Family Medicine; Visit Provider Physician Assistant
DX: R06.09 Other forms of dyspnea (principal)
CPT/HCPCS: 94060; 94726; 94729

== ENCOUNTER 2022-02-20 01:46 | Day surgery (SDC) | payer OTHER, SELFPAY ==
[2022-02-04 15:06] VITALS: BMI 31.5
--- NOTE | 2022-02-19 13:44 | PM.HPGS ---
History of Present Illness History of Present Illness Consent: Risks, benefits, and alternatives have been discussed and questions answered. Patient agrees to proceed with procedure. Chief complaint: GERD, melena, change in bowel habits Narrative: Shahnaz Newell is a 71 year old female Referred for Endoscopy and colonoscopy due to change in bowel habits. She recently had black, tarry stools for a few days. she has had a great deal of heartburn. She was taking Prilosec for years but had been switched to pantoprazole sometime ago. She still gets a quite a bit of heartburn. Her oncologist started her on sucralfate. She occasionally has difficulty swallowing but is primarily with carbonation. 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 Metastatic breast cancer Wellness examination Family History Family History Mother Family history of malignant neoplasm of breast in first degree relative Other Family history of cardiovascular disease Family history of malignant neoplasm Hypertension Social History Social History Smoking packs per day: 1 Smoking cigarettes per day: 20.0 Years smoked: 30 Smoking pack-years: 30.00 Smoking status: Never smoker Tobacco type: cigarettes Second hand tobacco smoke exposure: No Smoking end date: 06/01/15 Alcohol intake: current Drinks per week: 1 Alcohol use details: rare Substance use: never Substance use type: does not use Living arrangements: alone Gender identity (if verbalized by the patient): Female Sexual Orientation (if Verbalized by the Patient): Straight or Heterosexual Spiritual care concerns: No Meds Home Medications and Allergies Home Medications Medication Instructions Recorded Confirmed Type polyethylene glycol 3350 17 17 gm PO DAILY #119 grams 11/27/19 02/04/22 Rx gram/dose oral powder (Miralax) lorazepam 0.5 mg tablet 0.5 mg PO DAILY PRN Anxiety 09/12/20 02/04/22 History blood sugar diagnostic (Contour #100 ea 12/07/20 02/04/22 Rx Next Test Strips) bupropion HCl 300 mg 24 hr tablet, See Rx Instructions .Route 12/25/20 02/04/22 Rx extended release .COMPLEX #90 tabs insulin glargine 100 unit/mL (3 40 unit (0.4 mL) subcut QPM #15 mL 09/03/21 02/04/22 Rx mL) subcutaneous pen (Lantus Solostar U-100 Insulin) pen needle, diabetic 32 gauge x #300 ea 09/04/21 02/04/22 Rx /32 (BD Hortensia 2nd Gen Pen Needle) buspirone 10 mg tablet 10 mg PO BID #1 tablet 09/11/21 02/04/22 Rx hydroxyzine HCl 10 mg tablet 10 mg PO TID PRN anxiety #1 tablet 09/11/21 02/04/22 Rx albuterol sulfate 90 mcg/actuation 1 inh inhalation Q4H PRN shortness 10/08/21 02/04/22 Rx aerosol inhaler of breath or wheezing #8.5 grams aspirin 81 mg tablet,delayed 81 mg PO DAILY #90 tabs 10/08/21 02/04/22 Rx release metoprolol tartrate 25 mg tablet 25 mg PO BID #180 tabs 10/08/21 02/04/22 Rx cholecalciferol (vitamin D3) 125 5,000 unit PO DAILY #90 tabs 10/09/21 02/04/22 Rx mcg (5,000 unit) tablet pantoprazole 40 mg tablet,delayed 40 mg PO BID #180 tabs 12/20/21 02/04/22 Rx release (Protonix) rosuvastatin 40 mg tablet 40 mg PO DAILY #90 tabs 12/20/21 02/04/22 Rx linagliptin 5 mg tablet (Tradjenta) 5 mg PO QAM #90 tabs 01/01/22 02/04/22 Rx amlodipine 10 mg tablet 10 mg PO DAILY #1 tablet 01/21/22 02/04/22 Rx palbociclib 75 mg capsule (Ibrance) 75 mg PO DAILY #1 cap 02/04/22 02/04/22 Rx sucralfate 1 gram tablet 1 g PO Q6H y
[2022-02-20 08:21] VITALS: BMI 31.6
[2022-02-20] MEDS: LACTATED RINGERS 1,000 ML 150 ML IV CONT (08:36)
[2022-02-20 08:39] LABS: Glucose Point of Care 131 mg/dl (65-105)
--- NOTE | 2022-02-20 09:04 | WPDANESEPPF ---
Anes - Initial Pre Proc Eval Procedure: Operation Date: 02/20/22 09:15 Proposed Procedures p Esophagogastroduodenoscopy & Colonoscopy - Stephan Soto MD Date/Time: 02/20/22 09:04 Surgeon: Stephan Soto MD Pre Op Diagnosis: GERD, melena, change in bowel habits Patient Data Age: 71 Gender: F Height: 1.65 m Weight: 86.4 kg Allergies Allergy/AdvReac Type Severity Reaction Status Date / Time prochlorperazine Allergy Intermediate LOCK JAW Verified 02/04/22 14:57 Home Medications Medication Instructions Recorded Confirmed Type polyethylene glycol 3350 17 17 gm PO DAILY #119 grams 11/27/19 02/04/22 Rx gram/dose oral powder (Miralax) lorazepam 0.5 mg tablet 0.5 mg PO DAILY PRN Anxiety 09/12/20 02/04/22 History blood sugar diagnostic (Contour #100 ea 12/07/20 02/04/22 Rx Next Test Strips) bupropion HCl 300 mg 24 hr tablet, See Rx Instructions .Route 12/25/20 02/04/22 Rx extended release .COMPLEX #90 tabs insulin glargine 100 unit/mL (3 40 unit (0.4 mL) subcut QPM #15 mL 09/03/21 02/04/22 Rx mL) subcutaneous pen (Lantus Solostar U-100 Insulin) pen needle, diabetic 32 gauge x #300 ea 09/04/21 02/04/22 Rx 5/32 (BD Hortensia 2nd Gen Pen Needle) buspirone 10 mg tablet 10 mg PO BID #1 tablet 09/11/21 02/04/22 Rx hydroxyzine HCl 10 mg tablet 10 mg PO TID PRN anxiety #1 tablet 09/11/21 02/04/22 Rx albuterol sulfate 90 mcg/actuation 1 inh inhalation Q4H PRN shortness 10/08/21 02/04/22 Rx aerosol inhaler of breath or wheezing #8.5 grams aspirin 81 mg tablet,delayed 81 mg PO DAILY #90 tabs 10/08/21 02/04/22 Rx release metoprolol tartrate 25 mg tablet 25 mg PO BID #180 tabs 10/08/21 02/04/22 Rx cholecalciferol (vitamin D3) 125 5,000 unit PO DAILY #90 tabs 10/09/21 02/04/22 Rx mcg (5,000 unit) tablet pantoprazole 40 mg tablet,delayed 40 mg PO BID #180 tabs 12/20/21 02/04/22 Rx release (Protonix) rosuvastatin 40 mg tablet 40 mg PO DAILY #90 tabs 12/20/21 02/04/22 Rx linagliptin 5 mg tablet (Tradjenta) 5 mg PO QAM #90 tabs 01/01/22 02/04/22 Rx amlodipine 10 mg tablet 10 mg PO DAILY #1 tablet 01/21/22 02/04/22 Rx palbociclib 75 mg capsule (Ibrance) 75 mg PO DAILY #1 cap 02/04/22 02/04/22 Rx sucralfate 1 gram tablet 1 g PO Q6H y 02/04/22 02/04/22 History trazodone 50 mg tablet 50 mg PO QHS PRN insomnia 02/04/22 02/04/22 History Laboratory Tests 02/20/22 08:33 POC Capillary Glucose 131 mg/dl H mg/dl (65-105) Patient hx anesthesia problems: none Family hx anesthesia problems: none Results Review: All pre-operative results and documents have been reviewed as part of the pre-operative evaluation. 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 Metastatic breast cancer Wellness examination Family History Family History Mother Family history of malignant neoplasm of breast in first degree relative Other Family history of cardiovascular disease Family history of malignant neoplasm Hypertension Social History Social History Smoking packs per day: 1 Smoking cigarettes per day: 20.0 Years smoked: 30 Smoking pack-years: 30.00 Smoking status: Never smoker Tobacco type: cigarettes Second hand tobacco smoke exposure: No Smoking end date: 06/01/15 Alcohol intake: current Drinks per week: 1 Alcohol use details: rare Substance use: never Substance use type: does not use Living arrangements: alone Gender identity (if verbalized by the patient): Female Sexual Orientation (if Verbalized by the Patient): Straight or Heterosexual Spirit
[2022-02-20 09:53] VITALS: BP 130/56; PULSE 56; RESP 19; O2SAT 100
[2022-02-20 10:03] VITALS: BP 107/56; PULSE 57; RESP 16; O2SAT 100
[2022-02-20 10:08] LABS: Glucose Point of Care 114 mg/dl (65-105)
[2022-02-20 10:13] VITALS: BP 165/61; PULSE 59; RESP 23; O2SAT 100
--- NOTE | 2022-02-20 12:28 | SUR.OPER ---
EGD START: 918; END: 922. COLONOSCOPY START: 931; END: 941.
== END 2022-02-20 10:15 | disposition home or self-care (01) ==
PROVIDERS: PCP Family Medicine; Visit Provider Internal Medicine Gastroenterology
PROC: 0DJ08ZZ Inspection of Upper Intestinal Tract, Via Natural or Artificial Opening Endoscopic (ICD-10-PCS; CPT 43235; principal; 2022-02-20 09:15)
DX: R19.4 Change in bowel habit (principal); K64.8 Other hemorrhoids; K57.30 Diverticulosis of large intestine without perforation or abscess without bleeding; K31.7 Polyp of stomach and duodenum; K21.9 Gastro-esophageal reflux disease without esophagitis; K92.1 Melena; Z79.82 Long term (current) use of aspirin; Z79.4 Long term (current) use of insulin; Z79.51 Long term (current) use of inhaled steroids; B00.9 Herpesviral infection, unspecified; I12.9 Hypertensive chronic kidney disease with stage 1 through stage 4 chronic kidney disease, or unspecified chronic kidney disease; N18.9 Chronic kidney disease, unspecified; Z85.3 Personal history of malignant neoplasm of breast; Z87.891 Personal history of nicotine dependence; E66.9 Obesity, unspecified; Z68.31 Body mass index [BMI] 31.0-31.9, adult
CPT/HCPCS: 45378; 43251; 82948; 88305; 88342; J2704; J7120

== ENCOUNTER 2022-05-24 18:20 | Inpatient (IN) | payer OTHER, SELFPAY ==
--- NOTE | ~2022-05-24 | NM_ITS ---
EXAMINATION: NM pulmonary perfusion DATE: 05/25/2022 16:26 INDICATION: Concern for PE. TECHNIQUE: 5.23 mCi Tc-99m MAA was administered intravenously for perfusion images. Scintigraphic joel ges of the chest were obtained. COMPARISON: X-ray chest, 05/24/2022. FINDINGS: Perfusion images show no significant defects. IMPRESSION: 1. Low probability for pulmonary embolism. Reviewed, dictated and finalized at location K. GRATION COORDINATOR
--- NOTE | ~2022-05-24 | XR_ITS ---
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 RESULT: Lines, tubes, and devices: None. Lungs and pleura: Mid and lower lung reticulonodular opacities with cuffing. Bilateral posterior cos tophrenic angle blunting. Cardiomediastinal silhouette: Stable. Other: No acute osseous or upper abdominal finding. IMPRESSION: Pulmonary opacities may represent bronchiolitis, as can be seen with atypical infection, asthma, aspi ration, and small airways disease. Small bilateral effusions. Reviewed, dictated and finalized at location K. DEGRADATION ANALYST IMPRESSION: Pulmonary opacities may represent bronchiolitis, as can be seen with atypical i nfection, asthma, aspiration, and small airways disease. Small bilateral effusi ons.
[2022-05-24 18:46] VITALS: BP 111/99; PULSE 65; RESP 22; TEMP 36.5; O2SAT 98
--- NOTE | 2022-05-24 18:51 | ECG_ITS ---
Measurements Intervals Burket Rate: 62 P: 35 ID: [id number] QRS: -23 QRSD: 133 T: -14 QT: 420 QTc: 427 Interpretive Statements SINUS RHYTHM NONSPECIFIC INTRAVENTRICULAR CONDUCTION DELAY NONSPECIFIC ST ABNORMALITY INFERIOR LEADS BORDERLINE ECG NO PREVIOUS ECG AVAILABLE FOR COMPARISON Electronically Signed On 05-25-2022 15:44:01 CONTACT LENS ASSISTANT by Wisam Santana M.D.
[2022-05-24 19:13] LABS: Basophils Percent Auto 0.9 % (0.2-1.2); Hematocrit 25.1 % (37.0-47.0); Hemoglobin 7.6 g/dL (12.0-15.0); Immature Granulocyte Absolute 0.02 K/mm3 (0.00-0.031); Immature Granulocyte Percent A 0.9 % (0-0.5); Lymphocytes Absolute Auto 0.17 K/mm3 (0.9-3.2); Lymphocytes Percent Auto 7.9 % (18.3-44.2); Mean Corpuscular HGB Conc 30.3 g/dl (32-36); Mean Corpuscular Hemoglobin 29.3 pg (26-34); Mean Corpuscular Volume 96.9 fl (80-100); Mean Platelet Volume 10.3 fl (7.4-10.4); Monocytes Absolute Auto 0.1 K/mm3 (0.1-0.6); Neutrophils Absolute Auto 1.8 K/mm3 (1.3-6.7); Neutrophils Percent Auto 84.3 % (45.5-73.1); Platelet Count Result 123 k/mm3 (150-375); Red Blood Count 2.59 M/mm3 (4.2-5.4); Red Cell Distribution Width 21.2 % (11.5-14.5); White Blood Count 2.2 K/mm3 (4.5-10.0)
[2022-05-24 19:22] LABS: Alanine Aminotransferase 17 U/L (6-35); Albumin Level 4.2 g/dL (3.5-5.1); Alkaline Phosphatase 46 U/L (38-126); Anion Gap 8 mmol/L (8-16); Aspartate Amino Transferase 28 U/L (14-36); Bilirubin,Total 0.6 mg/dL (0.2-1.3); Blood Urea Nitrogen 30 mg/dL (7-17); Carbon Dioxide 24 mmol/L (22-30); Chloride 101 mmol/L (98-107); Estimated CRCL calculation 25 ml/min; Estimated Glomerular Filt Rate 24; Glucose 166 mg/dL (65-110); Potassium 4.3 mmol/L (3.4-5.0); Sodium 133 mmol/L (137-145)
[2022-05-24 19:48] LABS: Influenza A QL RT-PCR Negative (Negative); Influenza B QL RT-PCR Negative (Negative); RSV RNA, RT-PCR Negative (Negative); SARS-CoV-2 RNA PCR Negative
[2022-05-24 23:06] VITALS: BP 145/54; PULSE 65; RESP 24; O2SAT 100
[2022-05-25] VITALS (42 sets, daily range): BP systolic 124–159; BP diastolic 49–135; PULSE 60–80; RESP 12–20; TEMP 36.3–36.4; O2SAT 93–100
--- NOTE | 2022-05-25 02:33 | ED.GENADULT ---
HPI - General Adult General Chief complaint: Shortness of Breath/Dyspnea Stated complaint: sob Time Seen by Provider: 05/25/22 01:52 History of Present Illness HPI narrative: 72-year-old female presenting to the emergency department for evaluation of worsening shortness of breath. Patient states that she has had worsening shortness of breath over the course of the last few weeks. Patient states she noticed the worsening shortness of breath when she was trying to be active [place] shopping and was getting easily fatigued. Patient does have history of COPD and but is not on any oxygen at home. Patient also has history of metastatic spread of her breast cancer to both her spine and to her liver. Patient follows up with Dr. Graves at [facility]. Related Data Home Medications Medication Instructions Recorded Confirmed lorazepam 0.5 mg tablet 0.5 mg PO DAILY PRN Anxiety 09/12/20 04/01/22 sucralfate 1 gram tablet 1 g PO Q6H y 02/04/22 04/01/22 trazodone 50 mg tablet 50 mg PO QHS PRN insomnia 02/04/22 04/01/22 palbociclib 75 mg capsule (Ibrance) 75 mg PO DAILY 04/01/22 04/01/22 Allergies Allergy/AdvReac Type Severity Reaction Status Date / Time prochlorperazine Allergy Intermediate LOCK JAW Verified 05/25/22 03:35 Review of Systems Review of Systems: CONSTITUTIONAL: Denies fever, chills, or sweats. EYES: Denies visual changes, redness, or discharge. ENT: Denies rhinorrhea, congestion, sore throat, or otalgia. CARDIOVASCULAR: Denies chest pain, palpitations, or edema. RESPIRATORY: See HPI GASTROINTESTINAL: Denies abdominal pain, nausea, vomiting, or diarrhea. GENITOURINARY: Denies dysuria or hematuria. SKIN: Denies rash or itching. MUSCULOSKELETAL: Denies back pain, joint pain, or myalgia. NEUROLOGIC: Denies headache, numbness, or weakness. PSYCHIATRIC: Denies anxiety or depression. 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 Metastatic breast cancer Wellness examination Family History Family History Mother Family history of malignant neoplasm of breast in first degree relative Other Family history of cardiovascular disease Family history of malignant neoplasm Hypertension Social History Social History Smoking packs per day: 1 Smoking cigarettes per day: 20.0 Years smoked: 30 Smoking pack-years: 30.00 Smoking status: Former smoker Tobacco type: cigarettes Second hand tobacco smoke exposure: No Smoking end date: 06/01/15 Alcohol intake: current Drinks per week: 1 Alcohol use details: rare Substance use: never Substance use type: does not use Gender identity (if verbalized by the patient): Female Sexual Orientation (if Verbalized by the Patient): Straight or Heterosexual Spiritual care concerns: No Exam Narrative: APPEARANCE: Well appearing, no pain, no distress, well-nourished. HEAD: normocephalic, atraumatic. EYES: PERRLA/EOMI, conjunctivae clear. NOSE: Normal no drainage EARS:TMS clear with good light reflex. THROAT: Pharynx clear, no exudate. NECK: Supple. No adenopathy, no masses. RESPIRATORY: Airway patent, respirations nonlabored. Clear to auscultation bilaterally, no rales, rhonchi, wheezing. CARDIOVASCULAR: Regular rate and rhythm without murmurs rubs or gallops. ABDOMINAL: Soft, nontender, nondistended, normal bowel sounds MUSCULOSKELETAL: Moves all extremities. Strength/ROM intact, No edema, No calf tenderness. NEURO: Alert. Cranial nerves II through XII intact. Grossly intact SKIN: Warm, dry. Normal Color Course Course Emergency Course:
[2022-05-25] MEDS: predniSONE 20 MG TABLET 40 MG PO (03:35)
[2022-05-25] MEDS: ALBUTEROL SULFATE NEB 2.5 MG/3 ML INH 5 MG INHALATION ×3 (09:02→20:30)
[2022-05-25 09:36] LABS: Glucose Point of Care 229 mg/dl (65-105)
[2022-05-25 12:06] LABS: Glucose Point of Care 206 mg/dl (65-105)
[2022-05-25] MEDS: INSULIN ASPART (*BKC) 100 UNITS/ML SUB-Q ×2 (13:02→17:18)
--- NOTE | 2022-05-25 13:28 | PM.IMHP ---
H&P: HPI History of Present Illness Date/Time: 05/25/22 13:28 Chief Complaint: 72-year-old female presenting to the emergency department for evaluation of worsening shortness of breath.? Patient states that she has had worsening shortness of breath over the course of the last few weeks.? Patient states she noticed the worsening shortness of breath when she was trying to be active [place] shopping and was getting easily fatigued.? Patient does have history of COPD and but is not on any oxygen at home.? Patient also has history of metastatic spread of her breast cancer to both her spine and to her liver.? Patient follows up with Dr. Graves at [facility]. [facility] Past Medical History Medical History Cancer, metastatic to bone HSV-1 (herpes simplex virus 1) infection Hypertension Hypertensive chronic kidney disease with stage 1 through stage 4 chronic kidney disease, or unspecified chronic kidney disease 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 Metastatic breast cancer Wellness examination Family History Family History Mother Family history of malignant neoplasm of breast in first degree relative Other Family history of cardiovascular disease Family history of malignant neoplasm Hypertension Social History Social History Smoking packs per day: 1 Smoking cigarettes per day: 20.0 Years smoked: 30 Smoking pack-years: 30.00 Smoking status: Former smoker Tobacco type: cigarettes Second hand tobacco smoke exposure: No Smoking end date: 06/01/15 Alcohol intake: current Drinks per week: 1 Alcohol use details: rare Substance use: never Substance use type: does not use Gender identity (if verbalized by the patient): Female Sexual Orientation (if Verbalized by the Patient): Straight or Heterosexual Spiritual care concerns: No Meds Home Medications and Allergies Home Medications Medication Instructions Recorded Confirmed Type polyethylene glycol 3350 17 17 gm PO DAILY #119 grams 11/27/19 04/01/22 Rx gram/dose oral powder (Miralax) lorazepam 0.5 mg tablet 0.5 mg PO DAILY PRN Anxiety 09/12/20 04/01/22 History blood sugar diagnostic (Contour #100 ea 12/07/20 04/01/22 Rx Next Test Strips) bupropion HCl 300 mg 24 hr tablet, See Rx Instructions .Route 12/25/20 04/01/22 Rx extended release .COMPLEX #90 tabs pen needle, diabetic 32 gauge x #300 ea 09/04/21 04/01/22 Rx /32 (BD Hortensia 2nd Gen Pen Needle) buspirone 10 mg tablet 10 mg PO BID #1 tablet 09/11/21 04/01/22 Rx hydroxyzine HCl 10 mg tablet 10 mg PO TID PRN anxiety #1 tablet 09/11/21 04/01/22 Rx albuterol sulfate 90 mcg/actuation 1 inh inhalation Q4H PRN shortness 10/08/21 04/01/22 Rx aerosol inhaler of breath or wheezing #8.5 grams aspirin 81 mg tablet,delayed 81 mg PO DAILY #90 tabs 10/08/21 04/01/22 Rx release cholecalciferol (vitamin D3) 125 5,000 unit PO DAILY #90 tabs 10/09/21 04/01/22 Rx mcg (5,000 unit) tablet pantoprazole 40 mg tablet,delayed 40 mg PO BID #180 tabs 12/20/21 04/01/22 Rx release (Protonix) rosuvastatin 40 mg tablet 40 mg PO DAILY #90 tabs 12/20/21 04/01/22 Rx palbociclib 75 mg capsule (Ibrance) 75 mg PO DAILY #1 cap 02/04/22 04/01/22 Rx sucralfate 1 gram tablet 1 g PO Q6H y 02/04/22 04/01/22 History trazodone 50 mg tablet 50 mg PO QHS PRN insomnia 02/04/22 04/01/22 History insulin glargine 100 unit/mL (3 40 unit (0.4 mL) subcut QPM #15 mL 03/14/22 04/01/22 Rx mL) subcutaneous pen (Lantus Solostar U-100 Insulin) amlodipine 10 mg tablet 10 mg PO DAILY #90 tabs 03/17/22 04/01/22 Rx palbociclib 75 mg capsule (Ibrance) 75 mg PO DAILY 04/01/22 04/01/22 History umeclidinium 62.5 mcg-vilanterol 1 inh inhalation Q24H #14 ea 11/01/22 11/01/22 Rx 25 mcg/actuation powdr for inhalation (Anoro Ellipta) valacyclovir 1 g
[2022-05-25] MEDS: ACETAMINOPHEN 325 MG TABLET 650 MG PO (15:38)
[2022-05-25 16:54] LABS: Glucose Point of Care 256 mg/dl (65-105)
[2022-05-25 17:26] LABS: Iron 20 ug/dL (37-170)
[2022-05-25 17:35] LABS: Percent Iron Saturation 5 % (20-50)
[2022-05-25] MEDS: traZODone HCL 50 MG TABLET 100 MG PO (23:52)
[2022-05-25] MEDS: LORazepam (*CRX) 0.5 MG TABLET PO (23:53)
[2022-05-25] MEDS: METOPROLOL TARTRATE 25 MG TABLET PO (23:54)
[2022-05-25] MEDS: SERTRALINE HCL 25 MG TABLET PO (23:57)
[2022-05-26] VITALS (30 sets, daily range): BP systolic 138–173; BP diastolic 49–76; PULSE 50–98; RESP 16–24; TEMP 35.8–36.8; O2SAT 90–100
[2022-05-26] MEDS: ALBUTEROL SULFATE NEB 2.5 MG/3 ML INH 5 MG INHALATION ×4 (02:09→20:08)
[2022-05-26] MEDS: LORazepam (*CRX) 0.5 MG TABLET PO (06:57)
[2022-05-26 09:13] LABS: Hematocrit 22.2 % (37.0-47.0); Mean Corpuscular HGB Conc 29.7 g/dl (32-36); Mean Corpuscular Hemoglobin 29.1 pg (26-34); Mean Corpuscular Volume 97.8 fl (80-100); Mean Platelet Volume 11.5 fl (7.4-10.4); Platelet Count Result 109 k/mm3 (150-375); Red Blood Count 2.27 M/mm3 (4.2-5.4)
[2022-05-26 09:21] LABS: Hemoglobin 6.6 g/dL (12.0-15.0)
[2022-05-26 09:24] LABS: Anion Gap 2 mmol/L (8-16); Blood Urea Nitrogen 35 mg/dL (7-17); Calcium 8.4 mg/dL (8.4-10.2); Carbon Dioxide 27 mmol/L (22-30); Chloride 103 mmol/L (98-107); Estimated CRCL calculation 25 ml/min; Estimated Glomerular Filt Rate 24; Glucose 147 mg/dL (65-110); Potassium 4.1 mmol/L (3.4-5.0); Sodium 132 mmol/L (137-145)
[2022-05-26] MEDS: CHOLECALCIFEROL 1,000 UNITS TABLET 5000 UNITS PO (09:24)
[2022-05-26] MEDS: busPIRone HCL 10 MG TABLET PO ×2 (09:27→17:07)
[2022-05-26] MEDS: buPROPion HCL XL (24 HR) 150 MG TABCR 300 MG PO (09:27)
[2022-05-26] MEDS: ROSUVASTATIN 10 MG TABLET 40 MG PO (09:27)
[2022-05-26] MEDS: PANTOPRAZOLE 40 MG TABLET PO ×2 (09:27→17:07)
[2022-05-26] MEDS: METOPROLOL TARTRATE 25 MG TABLET PO ×2 (09:28→21:23)
[2022-05-26 09:40] LABS: Band Neutrophils Percent 4 % (0-6); Hypochromasia 3+ (NORMAL); Lymphocytes Absolute Manual 0.14 K/mm3 (1.1-4.5); Neutrophils Absolute Manual 1.86 K/mm3 (1.7-7.2); Neutrophils Percent Manual 89 % (46-73); Ovalocytes 1+ (NORMAL); Schistocytes None Seen (NORMAL); Tear Drop Cells 1+ (NORMAL); Total Cells Counted 100
[2022-05-26 09:41] LABS: Anisocytosis 3+ (NORMAL)
[2022-05-26] MEDS: amLODIPine BESYLATE 5 MG TABLET 10 MG PO (11:19)
[2022-05-26] MEDS: hydrOXYzine HCL 10 MG TABLET PO (11:19)
--- NOTE | 2022-05-26 11:52 | PM.IMPN ---
Progress Note: A&P Assessment and Plan (1) COPD (chronic obstructive pulmonary disease): Code(s): J44.9 - Chronic obstructive pulmonary disease, unspecified Status: Acute Assessment and Plan: History of. Minimal wheezing on examination. (2) Hypoxia: Code(s): R09.02 - Hypoxemia Status: Acute Assessment and Plan: Likely secondary to underlying pneumonia (3) Pneumonia: Code(s): J18.9 - Pneumonia, unspecified organism Status: Acute Assessment and Plan: IV Rocephin and azithromycin. (4) Anemia: Code(s): D64.9 - Anemia, unspecified Status: Acute Assessment and Plan: Monitor hemoglobin. Check stool for blood -pending. Iron deficient. IV iron Will transfuse GI consult (5) Type 2 diabetes mellitus: Code(s): E11.9 - Type 2 diabetes mellitus without complications Status: Acute Assessment and Plan: Monitor blood sugar. Sliding scale insulin as needed. (6) Nonerosive esophageal reflux disease: Code(s): K21.9 - Gastro-esophageal reflux disease without esophagitis Status: Acute Assessment and Plan: Continue home PPI (7) Mixed hyperlipidemia: Code(s): E78.2 - Mixed hyperlipidemia Status: Acute Assessment and Plan: Continue home medications (8) Major depressive disorder, single episode, unspecified: Code(s): F32.9 - Major depressive disorder, single episode, unspecified Status: Acute Assessment and Plan: Chronic and stable. Continue meds (9) Metastatic breast cancer: Code(s): C50.919 - Malignant neoplasm of unspecified site of unspecified female breast Status: Acute Assessment and Plan: Chronic (10) Sepsis: Code(s): A41.9 - Sepsis, unspecified organism Status: Acute Assessment and Plan: With bacteremia. Gram-positive cocci in clusters. Start on vancomycin. Pharmacy to dose. Echo ordered Subjective Date/time seen: 05/26/22 11:52 Feeling weak today. No new complaints. Denies chest pain. Cultures noted Exam Narrative: General: alert and oriented Psych: appropriate mood nad affect Eyes: PERRLA Neck: Trachea midline, no new lesions Skin: no changes Lungs: CTA Cardiac: Normal S1,S2, no MGR ABD: soft, nd, nt, nbs Ext: no new lesions, no cce Vasc: Pulses intact Objective Data Vital Signs Vital Signs: Vital Signs - 24 hr 05/25/22 13:44 05/25/22 14:49 05/25/22 12:00 Temperature 97.6 F Pulse Rate 79 70 62 Respiratory Rate 16 18 Blood Pressure 141/50 H Pulse Oximetry 95 Oxygen Delivery Oxygen Flow Rate 05/25/22 16:00 05/25/22 18:15 05/25/22 20:31 Temperature Pulse Rate 80 79 Respiratory Rate 18 Blood Pressure Pulse Oximetry 95 98 Oxygen Delivery Nasal Cannula Nasal Cannula Oxygen Flow Rate 2 2 05/25/22 20:32 05/25/22 23:54 05/26/22 02:10 Temperature Pulse Rate 79 70 67 Respiratory Rate 18 18 Blood Pressure Pulse Oximetry Oxygen Delivery Oxygen Flow Rate 05/25/22 22:00 05/25/22 20:00 05/25/22 20:00 Temperature 97.3 F L Pulse Rate 70 70 Respiratory Rate 19 Blood Pressure 146/56 H Pulse Oximetry 100 95 Oxygen Delivery Nasal Cannula Oxygen Flow Rate 2 05/26/22 00:00 05/26/22 06:00 05/26/22 07:45 Temperature 96.7 F L Pulse Rate 83 67 73 Respiratory Rate 20 18 Blood Pressure 138/53 L Pulse Oximetry 100 Oxygen Delivery Oxygen Flow Rate 05/26/22 07:52 05/26/22 07:55 05/26/22 09:28 Temperature Pulse Rate 74 88 Respiratory Rate 18 Blood Pressure Pulse Oximetry 95 Oxygen Delivery Nasal Cannula Oxygen Flow Rate 3 Intake/Output Intake/Output: Intake & Output 05/23/22 05/24/22 05/25/22 05/26/22 23:59 23:59 23:59 23:59 Intake Total 780 240 Balance 780 240 Meds/Results Medications: Active Medications Generic Name Dose Route Start Last Admin Trade Name Freq PRN Reason
[2022-05-26 12:34] LABS: Glucose Point of Care 155 mg/dl (65-105)
[2022-05-26] MEDS: IRON SUCROSE COMPLEX 200 MG in SODIUM CHLORIDE 0.9% IV 50 ML 120 MG IVPB (13:19)
--- NOTE | 2022-05-26 13:30 | PDONCCONNOTE ---
Recommendations monitor her CBC Impression she will be transfused and will need to follow her counts if neutrophils decreased further we will need to hold the Ibrance will follow PMFSH - Date/Time Seen 05/26/22 13:30 - History of Present Illness 72-year-old female with a history of breast cancer being treated at [facility] she has bilateral breast cancer with her right breast cancer being metastatic to bone she has been on multiple treatments and is presently on Ibrance and fat Faslodex she has had decrease counts in the Ibrance and has score was treatment delays in the past she comes in with COPD exacerbation and underlying pneumonia and complaints of dyspnea her hemoglobin today is 6.6 and should be transfused 2 units of packed red cells - Medical History Medical History (Last Reviewed 05/25/22 @ 13:28 by Sergey Loza MD) Cancer, metastatic to bone HSV-1 (herpes simplex virus 1) infection Hypertension Hypertensive chronic kidney disease with stage 1 through stage 4 chronic kidney disease, or unspecified chronic kidney disease 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 Metastatic breast cancer Wellness examination - Family History Family History (Last Reviewed 05/25/22 @ 13:28 by Sergey Loza MD) Mother Family history of malignant neoplasm of breast in first degree relative Other Family history of cardiovascular disease Family history of malignant neoplasm Hypertension - Social History Social History (Last Reviewed 05/25/22 @ 13:28 by Sergey Loza MD) Gender Identity: Gender identity (if verbalized by the patient): Female Sexual Orientation: Sexual Orientation (if Verbalized by the Patient): Straight or Heterosexual Alcohol Use: Alcohol intake: never Drinks per week: 1 Alcohol use details: rare Substance Use: Substance use: never Substance use type: does not use Others: Spiritual care concerns: No Smoking Status: Smoking status: Former smoker Tobacco type: cigarettes Second hand tobacco smoke exposure: No Smoking end date: 06/01/15 Smoking Pack-years: Smoking packs per day: 1 Smoking cigarettes per day: 20.0 Years smoked: 30 Smoking pack-years: 30.00 Social Determinants of Health: Has the Lack of Transportation Kept You From Medical Appointments or From Getting Medications?: No Within the Past 12 Months, Were You Worried Whether Your Food Would Run Out Before You Got Money to Buy More?: Never True What is Your Housing Situation Today?: I Have Housing Are You Worried That in the Next 2 Months, You May Not Have Your Own Housing to Live In?: No Do You Have Trouble Paying Your Heating Or Electricity Bill?: No Do You Have Trouble Paying For Medicines?: No Are You Currently Unemployed and Looking for Work?: No Highest Level of Education Completed: High School Diploma/GED Do You Have Trouble With Childcare or the Care of a Family Member?: No - Medications Active Medications Generic Name Dose Route Start Last Admin Trade Name Freq PRN Reason Stop Dose Admin Acetaminophen 650 mg 05/25/22 15:19 05/25/22 15:38 Acetaminophen 325 Mg Tablet PO 650 mg Q6H PRN Administration Mild Pain (1-3) or Fever Hydrocodone Bitart/Acetaminophen 1 tab 05/26/22 10:05 Hydrocodone/Acetaminophen (*Crx) 5-325 Mg Tablet PO Q4H PRN Pain 4-10 Albuterol 5 mg 05/25/22 08:00 05/26/22 07:50 Albuterol Sulfate Neb 2.5 Mg/3 Ml Inh INHALATION 5 mg Q6HRT RAJI Administration Amlodipine Besylate 10 mg 05/26/22 09:00 05/26/22 11:19 Amlodipine Besylate 5 Mg Tablet PO 10 mg DAILY RAJI Administration Aspirin 81 mg 05/26/22 09:00 05/26/22 10:14 Aspirin 81 Mg Enteric Tablet PO Not Given DAILY RAJI Bupropion HCl 300 mg 05/26/22 09:00 05/26/22 09:27 Bupropion Hcl Xl (24 Hr) 150 Mg Tabcr PO 300 mg
[2022-05-26] MEDS: HYDROcodone/acetaminophen (*CRX) 5-325 MG TABLET 1 TAB PO (16:34)
[2022-05-26] MEDS: TUBING, BLOOD PLUM PUMP TUBING 1 EACH XX (16:35)
[2022-05-26] MEDS: SODIUM CHLORIDE 0.9% IV 250 ML 30 ML IV CONT (16:35)
[2022-05-26] MEDS: INSULIN GLARGINE (*BKC) 100 UNITS/ML 40 UNITS SUB-Q (17:08)
[2022-05-26 17:28] LABS: Glucose Point of Care 107 mg/dl (65-105)
--- NOTE | 2022-05-26 18:04 | PHAR ---
Palbociclib [Ibrance] 125 mg capsule home med identified in pharmacy and returned to [address] [place] [address] unit
[2022-05-26] MEDS: SERTRALINE HCL 25 MG TABLET PO (21:23)
[2022-05-26] MEDS: traZODone HCL 50 MG TABLET 100 MG PO (21:23)
[2022-05-27] VITALS (18 sets, daily range): BP systolic 153–174; BP diastolic 65–71; PULSE 56–84; RESP 16–24; TEMP 35.8–36.3; O2SAT 93–100
--- NOTE | 2022-05-27 | ECHO_ITS ---
Patient Info Name: Shahnaz Newell Age: 72 years : 1950 Gender: Female Ht: 65 in Wt: 189 lbs BSA: 2.01 m2 HR: 67 bpm BP: 174 / 64 mmHg Heart Rhythm: Sinus Rhythm Exam Date: 05/27/2022 2:36 PM Exam Location: [facility] Patient Status: Inpatient Admit Date: 05/25/2022 Staff Ordering Physician: Sergey Loza MD Curriculum Designer: Rm Spencer RDCS, RT Attending Provider: Ellen Ashby DO Referring Physician: Dago ARAGON; Exam Type: CA echo doppler color flow Study Info Complete two-dimensional, color flow and Doppler transthoracic echocardiogram is performed. Strain analysis performed. Summary 1. Complete two-dimensional, color flow and Doppler transthoracic echocardiogram is performed. 2. Left ventricular chamber dimension is moderately enlarged. 3. Left ventricular systolic function is moderately reduced, estimated at 35%. Sigmoid septum. 4. There is no increased left ventricular wall thickness. 5. Left ventricular septal wall motion is abnormal with septal motion related to bundle branch block. 6. The left ventricular diastolic function is grade II diastolic dysfunction. 7. E/e' 30.8 is severely elevated. 8. Global longitudinal strain is moderately elevated at -13 %. 9. There is mild aortic valve stenosis with a peak velocity of 152 cm/s, mean gradient of 5 mmHg, and aortic valve area of 1.9 cm2. 10. There is moderate mitral valve regurgitation. 11. The mitral valve annulus is severely calcified. 12. The mitral valve has thickened leaflets. 13. There is moderate tricuspid valve regurgitation. 14. Moderate pulmonary hypertension, estimated pulmonary arterial systolic pressure is 50 mmHg. Recommendations * Consider transesophageal echocardiogram if clinically indicated. Left Ventricle Left ventricular chamber dimension is moderately enlarged. Left ventricular systolic function is moderately reduced, estimated at 35%. Sigmoid septum. There is no increased left ventricular wall thickness. Left ventricular septal wall motion is abnormal with septal motion related to bundle branch block. The left ventricular diastolic function is grade II diastolic dysfunction. E/e' 30.8 is severely elevated. Global longitudinal strain is moderately elevated at -13 %. Right Ventricle Right ventricular chamber dimension is normal. Right ventricular systolic function is normal. Left Atria Left atrial chamber dimension is mildly enlarged. Right Atria Right atrial chamber dimension is normal. Aortic Valve The aortic valve is trileaflet. There is mild aortic valve stenosis with a peak velocity of 152 cm/s, mean gradient of 5 mmHg, and aortic valve area of 1.9 cm2. There is no aortic valve regurgitation. There is mild aortic valve calcification. Pulmonic Valve The pulmonic valve is not well visualized. There is trace pulmonic regurgitation. Mitral Valve The mitral valve has thickened leaflets. There is moderate mitral valve regurgitation. The mitral valve annulus is severely calcified. Tricuspid Valve The tricuspid valve leaflets are normal. There is moderate tricuspid valve regurgitation. Moderate pulmonary hypertension, estimated pulmonary arterial systolic pressure is 50 mmHg. Pericardium/Pleural The pericardium appears normal. There is trivial pericardial effusion. Inferior Vena Cava Normal inferior vena cava with >50% collapse upon inspiration consistent with normal right atrial pressure, 5 mmHg. Aorta The aortic
[2022-05-27] MEDS: LORazepam (*CRX) 0.5 MG TABLET PO (01:14)
[2022-05-27] MEDS: ALBUTEROL SULFATE NEB 2.5 MG/3 ML INH 5 MG INHALATION ×3 (01:23→14:02)
[2022-05-27] MEDS: FUROSEMIDE INJ 40 MG/4 ML VIAL IV PUSH (02:40)
[2022-05-27 07:35] LABS: Basophils Percent Auto 0.8 % (0.2-1.2); Eosinophils Percent Auto 0.4 % (0-4.4); Hematocrit 34.6 % (37.0-47.0); Hemoglobin 10.6 g/dL (12.0-15.0); Immature Granulocyte Absolute 0.02 K/mm3 (0.00-0.031); Immature Granulocyte Percent A 0.8 % (0-0.5); Lymphocytes Absolute Auto 0.23 K/mm3 (0.9-3.2); Lymphocytes Percent Auto 9.5 % (18.3-44.2); Mean Corpuscular HGB Conc 30.6 g/dl (32-36); Mean Corpuscular Hemoglobin 29.7 pg (26-34); Mean Corpuscular Volume 96.9 fl (80-100); Mean Platelet Volume 10.5 fl (7.4-10.4); Monocytes Absolute Auto 0.1 K/mm3 (0.1-0.6); Monocytes Percent Auto 3.3 % (2.6-8.5); Neutrophils Absolute Auto 2.1 K/mm3 (1.3-6.7); Neutrophils Percent Auto 85.2 % (45.5-73.1); Nucleated Red Blood Cells Perc 0.8 % (0.0-0.2); Platelet Count Result 111 k/mm3 (150-375); Red Blood Count 3.57 M/mm3 (4.2-5.4); White Blood Count 2.4 K/mm3 (4.5-10.0)
[2022-05-27 07:39] LABS: Anion Gap 7 mmol/L (8-16); Blood Urea Nitrogen 29 mg/dL (7-17); Calcium 9.4 mg/dL (8.4-10.2); Carbon Dioxide 28 mmol/L (22-30); Chloride 99 mmol/L (98-107); Estimated CRCL calculation 27 ml/min; Estimated Glomerular Filt Rate 28; Glucose 129 mg/dL (65-110); Potassium 4.1 mmol/L (3.4-5.0); Sodium 134 mmol/L (137-145)
[2022-05-27 07:40] LABS: Glucose Point of Care 141 mg/dl (65-105)
[2022-05-27] MEDS: IRON SUCROSE COMPLEX 200 MG in SODIUM CHLORIDE 0.9% IV 50 ML 120 MG IVPB (09:09)
[2022-05-27] MEDS: amLODIPine BESYLATE 5 MG TABLET 10 MG PO (09:10)
[2022-05-27] MEDS: ROSUVASTATIN 10 MG TABLET 40 MG PO (09:10)
[2022-05-27] MEDS: buPROPion HCL XL (24 HR) 150 MG TABCR 300 MG PO (09:10)
[2022-05-27] MEDS: busPIRone HCL 10 MG TABLET PO ×2 (09:10→16:48)
[2022-05-27] MEDS: CHOLECALCIFEROL 1,000 UNITS TABLET 5000 UNITS PO (09:10)
[2022-05-27] MEDS: METOPROLOL TARTRATE 25 MG TABLET PO ×2 (09:11→21:44)
[2022-05-27] MEDS: PANTOPRAZOLE 40 MG TABLET PO ×2 (09:11→16:48)
[2022-05-27] MEDS: hydrOXYzine HCL 10 MG TABLET PO (09:11)
--- NOTE | 2022-05-27 10:22 | PM.IMPN ---
Progress Note: A&P Assessment and Plan (1) COPD (chronic obstructive pulmonary disease): Code(s): J44.9 - Chronic obstructive pulmonary disease, unspecified Status: Acute Assessment and Plan: History of. Minimal wheezing on examination. (2) Hypoxia: Code(s): R09.02 - Hypoxemia Status: Acute Assessment and Plan: Likely secondary to underlying pneumonia (3) Pneumonia: Code(s): J18.9 - Pneumonia, unspecified organism Status: Acute Assessment and Plan: IV Rocephin and azithromycin. (4) Anemia: Code(s): D64.9 - Anemia, unspecified Status: Acute Assessment and Plan: Monitor hemoglobin. Check stool for blood -pending. Iron deficient. IV iron Will transfuse GI consult (5) Type 2 diabetes mellitus: Code(s): E11.9 - Type 2 diabetes mellitus without complications Status: Acute Assessment and Plan: Monitor blood sugar. Sliding scale insulin as needed. (6) Nonerosive esophageal reflux disease: Code(s): K21.9 - Gastro-esophageal reflux disease without esophagitis Status: Acute Assessment and Plan: Continue home PPI (7) Mixed hyperlipidemia: Code(s): E78.2 - Mixed hyperlipidemia Status: Acute Assessment and Plan: Continue home medications (8) Major depressive disorder, single episode, unspecified: Code(s): F32.9 - Major depressive disorder, single episode, unspecified Status: Acute Assessment and Plan: Chronic and stable. Continue meds (9) Metastatic breast cancer: Code(s): C50.919 - Malignant neoplasm of unspecified site of unspecified female breast Status: Acute Assessment and Plan: Chronic (10) Sepsis: Code(s): A41.9 - Sepsis, unspecified organism Status: Acute Assessment and Plan: With bacteremia. Gram-positive cocci in clusters. Start on vancomycin. Pharmacy to dose. Echo ordered Subjective Date/time seen: 05/27/22 10:22 Feeling better. Exam Narrative: General: alert and oriented Psych: appropriate mood nad affect Eyes: PERRLA Neck: Trachea midline, no new lesions Skin: no changes Lungs: CTA Cardiac: Normal S1,S2, no MGR ABD: soft, nd, nt, nbs Ext: no new lesions, no cce Vasc: Pulses intact Objective Data Vital Signs Vital Signs: Vital Signs - 24 hr 05/26/22 14:04 05/26/22 14:22 05/26/22 15:45 Temperature 97.2 F L Pulse Rate 72 78 70 Respiratory Rate 18 18 18 Blood Pressure 173/65 H Pulse Oximetry 100 Oxygen Delivery Oxygen Flow Rate 05/26/22 15:59 05/26/22 16:28 05/26/22 16:44 Temperature 97.6 F 96.7 F L 97.4 F L Pulse Rate 61 61 63 Respiratory Rate 24 H 24 H 18 Blood Pressure 163/63 H 163/65 H 159/61 H Pulse Oximetry 94 94 100 Oxygen Delivery Oxygen Flow Rate 05/26/22 12:00 05/26/22 16:00 05/26/22 17:44 Temperature 98.2 F Pulse Rate 60 70 60 Respiratory Rate 16 Blood Pressure 153/72 H Pulse Oximetry 97 Oxygen Delivery Oxygen Flow Rate 05/26/22 19:32 05/26/22 18:44 05/26/22 20:12 Temperature 97.3 F L 97.9 F Pulse Rate 59 L 58 L 62 Respiratory Rate 20 20 20 Blood Pressure 155/57 H 155/62 H Pulse Oximetry 100 98 Oxygen Delivery Oxygen Flow Rate 05/26/22 20:14 05/26/22 20:21 05/26/22 20:53 Temperature 96.5 F L Pulse Rate 60 98 Respiratory Rate 20 16 Blood Pressure 155/76 H Pulse Oximetry 96 95 Oxygen Delivery Nasal Cannula Oxygen Flow Rate 2 05/26/22 21:08 05/26/22 21:23 05/26/22 21:53 Temperature 97.5 F L 97.2 F L Pulse Rate 64 63 62 Respiratory Rate 16 16 Blood Pressure 169/55 H 153/49 H Pulse Oximetry 100 99 Oxygen Delivery Oxygen Flow Rate 05/26/22 22:53 05/26/22 22:53 05/26/22 23:53 Temperature 97.3 F L 97.3 F L 97.4 F L Pulse Rate 64 64 65 Respiratory Rate 16 16 16 Blood Pressure 155/51 H 155/51 H 171/63 H Pulse Oximetry 100 100 94 Oxygen Delivery Oxygen Flow Rate
[2022-05-27 11:30] LABS: Glucose Point of Care 145 mg/dl (65-105)
[2022-05-27 16:41] LABS: Glucose Point of Care 97 mg/dl (65-105)
[2022-05-27] MEDS: INSULIN GLARGINE (*BKC) 100 UNITS/ML 40 UNITS SUB-Q (17:41)
[2022-05-27 21:22] LABS: Glucose Point of Care 166 mg/dl (65-105)
[2022-05-27] MEDS: traZODone HCL 50 MG TABLET 100 MG PO (21:44)
[2022-05-27] MEDS: SERTRALINE HCL 25 MG TABLET PO (21:45)
[2022-05-28] VITALS (14 sets, daily range): BP systolic 138–147; BP diastolic 62–66; PULSE 55–68; RESP 16–20; TEMP 36.2–36.6; O2SAT 96–100
--- NOTE | 2022-05-28 00:54 | PCRCNOTE ---
Window of time for administration has passed. See next scheduled administration.
[2022-05-28] MEDS: ALBUTEROL SULFATE NEB 2.5 MG/3 ML INH 5 MG INHALATION ×4 (04:04→20:35)
[2022-05-28] MEDS: ACETAMINOPHEN 325 MG TABLET 650 MG PO (06:54)
[2022-05-28 08:15] LABS: Glucose Point of Care 87 mg/dl (65-105)
[2022-05-28] MEDS: ROSUVASTATIN 10 MG TABLET 40 MG PO (08:24)
[2022-05-28] MEDS: amLODIPine BESYLATE 5 MG TABLET 10 MG PO (08:24)
[2022-05-28] MEDS: METOPROLOL TARTRATE 25 MG TABLET PO ×2 (08:24→21:55)
[2022-05-28] MEDS: busPIRone HCL 10 MG TABLET PO ×2 (08:24→17:21)
[2022-05-28] MEDS: CHOLECALCIFEROL 1,000 UNITS TABLET 5000 UNITS PO (08:24)
[2022-05-28] MEDS: IRON SUCROSE COMPLEX 200 MG in SODIUM CHLORIDE 0.9% IV 50 ML 120 MG IVPB (08:25)
[2022-05-28] MEDS: buPROPion HCL XL (24 HR) 150 MG TABCR 300 MG PO (08:25)
[2022-05-28] MEDS: PANTOPRAZOLE 40 MG TABLET PO ×2 (08:25→17:21)
--- NOTE | 2022-05-28 10:16 | PM.CNCAR ---
Assessment and Plan Assessment and plan (1) Sepsis: Code(s): A41.9 - Sepsis, unspecified organism Status: Acute (2) Coronary artery disease involving [place] coronary artery of [place] heart: Code(s): I25.10 - Atherosclerotic heart disease of [place] coronary artery without angina pectoris Status: Acute (3) Cardiomyopathy: Code(s): I42.9 - Cardiomyopathy, unspecified Status: Acute Plan Will perform RIANNA tomorrow. Patient is currently DNR but agrees to be FULL CODE for the procedure. Patient to be NPO at midnight. Her reduced LVEF of 35% is a new diagnosis of cardiomyopathy for the patient. Recommend to switch her Metoprolol tartrate to succinate form and start ACEi/ARB. Does not need an inpatient ischemic evaluation. Will have patient follow-up with Dr. Swanson as an outpatient. History of Present Illness History of Present Illness Consult date/time: 05/28/22 10:16 Requesting physician: Sergey Loza MD Consult reason: Other (RIANNA) Reason For Visit: COPD, Pneumonia, Hypoxia Narrative: We are being consulted for RIANNA for bacteremia. This is a 72-year-old patient who follows with Dr. Swanson in clinic. She has a history of breast cancer with mets to the bone, CAD wit hold ND, hypertension, diabetes, hyperlipidemia, depression, GERD/hiatal hernia. Last saw Dr. Swanson in 03/2020. She presented this time with shortness of breath. She is being treated for pneumonia. Blood culture from 05/25 showing Staphylococcus simulans. TTE 05/27 showing LVEF 35%, moderate MR, thickening MV leaflets. Patient denies any recent symptoms of angina. No edema. Review of Systems Review of Systems: 12-point ROS obtained. Negative, unless stated in HPI. [facility] Past Medical History Medical History Cancer, metastatic to bone HSV-1 (herpes simplex virus 1) infection Hypertension Hypertensive chronic kidney disease with stage 1 through stage 4 chronic kidney disease, or unspecified chronic kidney disease 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 Metastatic breast cancer Wellness examination Family History Family History Mother Family history of malignant neoplasm of breast in first degree relative Other Family history of cardiovascular disease Family history of malignant neoplasm Hypertension Social History Social History Smoking packs per day: 1 Smoking cigarettes per day: 20.0 Years smoked: 30 Smoking pack-years: 30.00 Smoking status: Former smoker Tobacco type: cigarettes Second hand tobacco smoke exposure: No Smoking end date: 06/01/15 Alcohol intake: never Drinks per week: 1 Alcohol use details: rare Substance use: never Substance use type: does not use Lack of Transportation: No Lack of Food: Never True Current Housing: I Have Housing Concerned About Future Housing: No Difficulty Paying Gas/Electric Bills: No Difficulty Paying for Meds: No Currently Unemployed: No Education: High School Diploma/GED Difficulty w/ Childcare or Family Care: No Gender identity (if verbalized by the patient): Female Sexual Orientation (if Verbalized by the Patient): Straight or Heterosexual Spiritual care concerns: No Meds Home Medications and Allergies Home Medications Medication Instructions Recorded Confirmed Type lorazepam 0.5 mg tablet 0.5 mg PO HS PRN Anxiety 09/12/20 05/25/22 History blood sugar diagnostic (Contour #100 ea 12/07/20 05/25/22 Rx Next Test Strips) pen needle, diabetic 32 gauge x #300 ea 09/04/21 05/25/22 Rx (BD Hortensia 2nd Gen Pen Needle) buspirone 10 mg tablet 10 mg PO BID #1 tablet 09/11/21 05/25/22 Rx hydroxyzine HCl 10 mg tablet 10 mg PO TID PRN anxiety #1 tablet 09/11/21 05/25/22 Rx albuterol sulfate 90 mcg/actuation 1 inh inhalation Q4H
--- NOTE | 2022-05-28 11:12 | PM.IMPN ---
Progress Note: A&P Assessment and Plan (1) COPD (chronic obstructive pulmonary disease): Code(s): J44.9 - Chronic obstructive pulmonary disease, unspecified Status: Acute Assessment and Plan: History of. Minimal wheezing on examination. (2) Hypoxia: Code(s): R09.02 - Hypoxemia Status: Acute Assessment and Plan: Likely secondary to underlying pneumonia (3) Pneumonia: Code(s): J18.9 - Pneumonia, unspecified organism Status: Acute Assessment and Plan: IV Rocephin and azithromycin. (4) Anemia: Code(s): D64.9 - Anemia, unspecified Status: Acute Assessment and Plan: Monitor hemoglobin. Check stool for blood -pending. Iron deficient. IV iron Will transfuse GI consult (5) Type 2 diabetes mellitus: Code(s): E11.9 - Type 2 diabetes mellitus without complications Status: Acute Assessment and Plan: Monitor blood sugar. Sliding scale insulin as needed. (6) Nonerosive esophageal reflux disease: Code(s): K21.9 - Gastro-esophageal reflux disease without esophagitis Status: Acute Assessment and Plan: Continue home PPI (7) Mixed hyperlipidemia: Code(s): E78.2 - Mixed hyperlipidemia Status: Acute Assessment and Plan: Continue home medications (8) Major depressive disorder, single episode, unspecified: Code(s): F32.9 - Major depressive disorder, single episode, unspecified Status: Acute Assessment and Plan: Chronic and stable. Continue meds (9) Metastatic breast cancer: Code(s): C50.919 - Malignant neoplasm of unspecified site of unspecified female breast Status: Acute Assessment and Plan: Chronic (10) Sepsis: Code(s): A41.9 - Sepsis, unspecified organism Status: Acute Assessment and Plan: With bacteremia. Gram-positive cocci in clusters. Start on vancomycin. Pharmacy to dose. Echo ordered -cardiology consult for possible RIANNA Subjective Date/time seen: 05/28/22 11:12 No new complaints Exam Const: General: comfortable and no acute distress HENMT: Mouth: Yes moist mucous membranes Eyes: General: appearance normal, both eyes and all related structures Sclera: sclerae normal Neck: Neck: supple Resp: Effort & Inspection: normal respiratory effort Auscultation: diminished lung sounds Cardio: Rate: regular rate Rhythm: regular rhythm Heart sounds: no murmurs Skin: General skin exam: normal color Neuro: Speech: normal speech Psych: Mental Status: mental status grossly normal Affect: normal affect Objective Data Vital Signs Vital Signs: Vital Signs - 24 hr 05/27/22 11:27 05/27/22 14:03 05/27/22 12:00 Temperature Pulse Rate 59 L 56 L Respiratory Rate 20 Blood Pressure Pulse Oximetry Oxygen Delivery Nasal Cannula Oxygen Flow Rate 2 05/27/22 14:13 05/27/22 14:00 05/27/22 20:59 Temperature 96.4 F L 97.3 F L Pulse Rate 63 60 72 Respiratory Rate 20 20 18 Blood Pressure 155/71 H 153/67 H Pulse Oximetry 100 97 Oxygen Delivery Oxygen Flow Rate 05/27/22 21:44 05/27/22 20:00 05/28/22 04:04 Temperature Pulse Rate 70 64 Respiratory Rate 20 Blood Pressure Pulse Oximetry 97 Oxygen Delivery Nasal Cannula Oxygen Flow Rate 2 05/27/22 19:50 05/28/22 08:24 05/28/22 09:09 Temperature Pulse Rate 63 60 55 L Respiratory Rate 18 Blood Pressure Pulse Oximetry 96 Oxygen Delivery Nasal Cannula Oxygen Flow Rate 2 05/28/22 09:14 05/28/22 09:20 Temperature Pulse Rate 55 L 61 Respiratory Rate 18 Blood Pressure Pulse Oximetry 96 Oxygen Delivery Nasal Cannula Oxygen Flow Rate 2 Intake/Output Intake/Output: Intake & Output 05/25/22 05/26/22 05/27/22 05/28/22 23:59 23:59 23:59 23:59 Intake Total 780 8000 2830 540 Output Total 950 3450 Balance 780 769 -7355 956 Meds/Results Medications: Active Medications Generic
[2022-05-28 12:29] LABS: Glucose Point of Care 108 mg/dl (65-105)
[2022-05-28 16:55] LABS: Glucose Point of Care 127 mg/dl (65-105)
[2022-05-28] MEDS: INSULIN GLARGINE (*BKC) 100 UNITS/ML 40 UNITS SUB-Q (17:22)
[2022-05-28] MEDS: traZODone HCL 50 MG TABLET 100 MG PO (21:55)
[2022-05-28] MEDS: SERTRALINE HCL 25 MG TABLET PO (21:55)
[2022-05-28 22:15] LABS: Glucose Point of Care 182 mg/dl (65-105)
[2022-05-29] VITALS (22 sets, daily range): BP systolic 139–173; BP diastolic 2–85; PULSE 50–66; RESP 13–18; TEMP 36.1–36.5; O2SAT 93–100
[2022-05-29] MEDS: ALBUTEROL SULFATE NEB 2.5 MG/3 ML INH 5 MG INHALATION ×3 (03:07→21:52)
[2022-05-29 07:06] LABS: Basophils Percent Auto 1.9 % (0.2-1.2); Eosinophils Absolute Auto 0.1 K/mm3 (0-0.3); Eosinophils Percent Auto 3.2 % (0-4.4); Hematocrit 33.9 % (37.0-47.0); Hemoglobin 10.6 g/dL (12.0-15.0); Immature Granulocyte Absolute 0.01 K/mm3 (0.00-0.031); Immature Granulocyte Percent A 0.6 % (0-0.5); Immature Platelet Fraction Pct 3.3 % (0.9-11.2); Lymphocytes Absolute Auto 0.34 K/mm3 (0.9-3.2); Lymphocytes Percent Auto 21.7 % (18.3-44.2); Mean Corpuscular HGB Conc 31.3 g/dl (32-36); Mean Corpuscular Hemoglobin 29.6 pg (26-34); Mean Corpuscular Volume 94.7 fl (80-100); Mean Platelet Volume 10.5 fl (7.4-10.4); Monocytes Absolute Auto 0.1 K/mm3 (0.1-0.6); Monocytes Percent Auto 4.5 % (2.6-8.5); Neutrophils Absolute Auto 1.1 K/mm3 (1.3-6.7); Neutrophils Percent Auto 68.1 % (45.5-73.1); Platelet Count Result 103 k/mm3 (150-375); Red Blood Count 3.58 M/mm3 (4.2-5.4); Red Cell Distribution Width 17.8 % (11.5-14.5)
[2022-05-29 07:12] LABS: Anion Gap 4 mmol/L (8-16); Blood Urea Nitrogen 23 mg/dL (7-17); Calcium 8.8 mg/dL (8.4-10.2); Carbon Dioxide 34 mmol/L (22-30); Chloride 101 mmol/L (98-107); Estimated CRCL calculation 26 ml/min; Estimated Glomerular Filt Rate 26; Glucose 116 mg/dL (65-110); Potassium 3.4 mmol/L (3.4-5.0); Sodium 139 mmol/L (137-145)
[2022-05-29 08:41] LABS: White Blood Count 1.6 K/mm3 (4.5-10.0)
[2022-05-29 09:01] LABS: Glucose Point of Care 87 mg/dl (65-105)
--- NOTE | 2022-05-29 10:11 | PC.NURSE ---
pt is NPO, confirmed with chest pain center that pt can have PO meds this morning with a sip of water
[2022-05-29] MEDS: ACETAMINOPHEN 325 MG TABLET 650 MG PO (10:19)
[2022-05-29] MEDS: hydrOXYzine HCL 10 MG TABLET PO (10:20)
[2022-05-29] MEDS: amLODIPine BESYLATE 5 MG TABLET 10 MG PO (10:20)
[2022-05-29] MEDS: PANTOPRAZOLE 40 MG TABLET PO ×2 (10:21→18:16)
[2022-05-29] MEDS: METOPROLOL TARTRATE 25 MG TABLET PO ×2 (10:21→20:48)
[2022-05-29 11:03] LABS: Vancomycin Trough 18.5 ug/mL (10.0-20.0)
--- NOTE | 2022-05-29 12:17 | PC.NURSE ---
call to pharmacy for missing dose of vancomycin due at 1100 following trough
[2022-05-29 12:43] LABS: Glucose Point of Care 84 mg/dl (65-105)
--- NOTE | 2022-05-29 12:52 | PC.NURSE ---
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
--- NOTE | 2022-05-29 12:54 | PM.IMPN ---
Progress Note: A&P Assessment and Plan (1) COPD (chronic obstructive pulmonary disease): Code(s): J44.9 - Chronic obstructive pulmonary disease, unspecified Status: Acute Assessment and Plan: History of. Minimal wheezing on examination. (2) Hypoxia: Code(s): R09.02 - Hypoxemia Status: Acute Assessment and Plan: Likely secondary to underlying pneumonia (3) Pneumonia: Code(s): J18.9 - Pneumonia, unspecified organism Status: Acute Assessment and Plan: IV Rocephin and azithromycin. (4) Anemia: Code(s): D64.9 - Anemia, unspecified Status: Acute Assessment and Plan: Monitor hemoglobin. Check stool for blood -pending. Iron deficient. IV iron Will transfuse GI consult (5) Type 2 diabetes mellitus: Code(s): E11.9 - Type 2 diabetes mellitus without complications Status: Acute Assessment and Plan: Monitor blood sugar. Sliding scale insulin as needed. (6) Nonerosive esophageal reflux disease: Code(s): K21.9 - Gastro-esophageal reflux disease without esophagitis Status: Acute Assessment and Plan: Continue home PPI (7) Mixed hyperlipidemia: Code(s): E78.2 - Mixed hyperlipidemia Status: Acute Assessment and Plan: Continue home medications (8) Major depressive disorder, single episode, unspecified: Code(s): F32.9 - Major depressive disorder, single episode, unspecified Status: Acute Assessment and Plan: Chronic and stable. Continue meds (9) Metastatic breast cancer: Code(s): C50.919 - Malignant neoplasm of unspecified site of unspecified female breast Status: Acute Assessment and Plan: Chronic (10) Sepsis: Code(s): A41.9 - Sepsis, unspecified organism Status: Acute Assessment and Plan: With bacteremia. Gram-positive cocci in clusters. Start on vancomycin. Pharmacy to dose. Echo ordered -cardiology consult for possible RIANNA Subjective Date/time seen: 05/29/22 12:54 No new complaints Exam Const: General: comfortable and no acute distress HENMT: Mouth: Yes moist mucous membranes Eyes: General: appearance normal, both eyes and all related structures Sclera: sclerae normal Neck: Neck: supple Resp: Effort & Inspection: normal respiratory effort Auscultation: diminished lung sounds Cardio: Rate: regular rate Rhythm: regular rhythm Heart sounds: no murmurs Skin: General skin exam: normal color Neuro: Speech: normal speech Psych: Mental Status: mental status grossly normal Affect: normal affect Objective Data Vital Signs Vital Signs: Vital Signs - 24 hr 05/28/22 13:55 05/28/22 14:09 05/28/22 14:00 Temperature 97.1 F L Pulse Rate 56 L 64 62 Respiratory Rate 18 18 20 Blood Pressure 147/62 H Pulse Oximetry 100 Oxygen Delivery Oxygen Flow Rate 05/28/22 20:29 05/28/22 20:37 05/28/22 20:45 Temperature Pulse Rate 60 59 L Respiratory Rate 18 18 Blood Pressure Pulse Oximetry 96 Oxygen Delivery Nasal Cannula Oxygen Flow Rate 2 05/28/22 21:55 05/28/22 23:07 05/29/22 03:00 Temperature 97.8 F Pulse Rate 68 57 L 57 L Respiratory Rate 16 18 Blood Pressure 138/66 Pulse Oximetry 96 Oxygen Delivery Oxygen Flow Rate 05/29/22 03:09 05/28/22 20:00 05/29/22 06:36 Temperature 97.7 F Pulse Rate 61 64 Respiratory Rate 18 18 Blood Pressure 139/60 Pulse Oximetry 96 99 Oxygen Delivery Nasal Cannula Oxygen Flow Rate 2 05/29/22 08:20 05/29/22 08:20 05/29/22 09:21 Temperature Pulse Rate 56 L Respiratory Rate 18 Blood Pressure Pulse Oximetry 95 Oxygen Delivery Nasal Cannula Nasal Cannula Oxygen Flow Rate 2 2 05/29/22 10:21 05/29/22 08:30 Temperature Pulse Rate 64 Respiratory Rate Blood Pressure Pulse Oximetry Oxygen Delivery Room Air Oxygen Flow Rate Intake/Output Intake/Output: Intake & Output 1
--- NOTE | 2022-05-29 14:16 | WPDTEECHO ---
[facility] TransEsophageal Echocardiogram Date of procedure: 05/29/22 Procedure Type: Date of Procedure: 05/29/2022 Brief History Of Present Illness: Patient is a pleasant 72-year-old female who is referred for transesophageal echocardiogram for evaluation for infective endocarditis in the setting of bacteremia. Procedure In Detail: After verbal and written informed consent was obtained, the patient risks, benefits, and alternatives explained in detail. The patient agreed to proceed with the plan of care as outlined above.?The patient was evaluated at bedside in the [facility] procedure room.?The posterior oropharynx, neck, and jaw angle all within normal limits on examination. Lungs were clear to auscultation. See pre-sedation note for further details. The patient was then placed in the appropriate 30 to 45 degree angle supine position at a slight left lateral decubitus position.?Patient was monitored throughout the study with telemetry, oxygen saturation, end-tidal CO2 monitoring, blood pressure, heart rate, and respirations.? The posterior hypopharynx was then locally anesthetized using repeated administration of Hurricaine spray as well as gargled viscous lidocaine.? After local anesthetic of the posterior hypopharynx was achieved and the oral bite block placed, moderate sedation was administered.? After confirmation of adequate moderate sedation, the transesophageal echocardiogram probe was advanced through the oral bite block into the posterior hypopharynx and into the esophagus easily and without complication.? Multiple, multiplanar echocardiographic images were obtained in multiple standard re- projections.? Pulsed wave, continuous-wave, and color-flow Doppler were utilized in conjunction with this study.? At the conclusion of the study, the transesophageal echocardiogram probe was removed easily and without complication.? The patient tolerated the procedure well without difficulty.? Patient was in sinus rhythm throughout the study. Moderate Sedation/Anesthesia administration: Patient reports no prior problems with sedation/anesthesia. Please see pre-sedation noted for physical examination documentation. As noted above, after adequate local anesthesia of the posterior hypopharynx was achieved, a total of 2mg intravenous Versed and a total of 50mcg intravenous Fentanyl in multiple divided doses was administered for moderate sedation.? Sedation start time was 13:53 and end time was 14:11 or a total intra-service/procedure face-face time of? 18 minutes.? Sedation was administered by a qualified/certified observer?Antoinette HAYES under my supervision with intra-procedure [id number] observation and management throughout the entirety of the procedure.? There were no other issues or complications and patient tolerated the procedure well. See post-anesthesia documentation. FINDINGS: LEFT VENTRICLE: Left ventricular ejection fraction appears to be moderately reduced. RIGHT VENTRICLE:? Size and systolic function within normal limits. LEFT ATRIUM: Mildly enlarged RIGHT ATRIUM: Normal size. INTERATRIAL SEPTUM: ? Interatrial septum is anatomically normal. MITRAL VALVE: ? Mitral valve annulus is calcified. There is mild regurgitation. No mobile elements identified. AORTIC VALVE: The aortic valve is trileaflet and mildly calcified. No valvular vegetations. TRICUSPID VALVE: The tricuspid valve is anatomically normal with normal leaflet excursion. No mobile elements identified. PULMONIC VALVE: Pulmonic valve was not well visualized, however, no gross vegetations identified. LEFT ATRIAL APPENDAGE: Anatomically normal structure with prominent pectinate muscles without thrombus or vegetation identified. PERICARDIUM: The pericardium was anatomically normal without significant pericardial effusion. ? AORTA: Deep transgastric views were not obtained. Mid esophageal views of the aorta showed mild atherosclerotic plaque. Complications: None This dictation may hav
--- NOTE | 2022-05-29 15:40 | PC.NURSE ---
pt returned from procedure, doing well, resting comfortably
--- NOTE | 2022-05-29 16:00 | PCRCNOTE ---
Window of time for administration has passed. See next scheduled administration.
[2022-05-29 17:32] LABS: Glucose Point of Care 115 mg/dl (65-105)
[2022-05-29] MEDS: busPIRone HCL 10 MG TABLET PO (18:16)
[2022-05-29] MEDS: INSULIN GLARGINE (*BKC) 100 UNITS/ML 40 UNITS SUB-Q (18:17)
[2022-05-29] MEDS: ROSUVASTATIN 10 MG TABLET 40 MG PO (18:17)
[2022-05-29] MEDS: traZODone HCL 50 MG TABLET 100 MG PO (20:49)
[2022-05-29] MEDS: SERTRALINE HCL 25 MG TABLET PO (20:49)
[2022-05-30] VITALS (13 sets, daily range): BP systolic 139–152; BP diastolic 44–56; PULSE 56–66; RESP 17–18; TEMP 35.9–36.2; O2SAT 93–100
[2022-05-30] MEDS: LORazepam (*CRX) 0.5 MG TABLET PO (00:15)
[2022-05-30] MEDS: ALBUTEROL SULFATE NEB 2.5 MG/3 ML INH 5 MG INHALATION ×3 (02:06→14:23)
[2022-05-30 07:56] LABS: Glucose Point of Care 78 mg/dl (65-105)
[2022-05-30] MEDS: METOPROLOL TARTRATE 25 MG TABLET PO ×2 (10:07→20:24)
[2022-05-30] MEDS: PANTOPRAZOLE 40 MG TABLET PO ×2 (10:07→17:49)
[2022-05-30] MEDS: CHOLECALCIFEROL 1,000 UNITS TABLET 5000 UNITS PO (10:08)
[2022-05-30] MEDS: buPROPion HCL XL (24 HR) 150 MG TABCR 300 MG PO (10:08)
[2022-05-30] MEDS: amLODIPine BESYLATE 5 MG TABLET 10 MG PO (10:08)
[2022-05-30] MEDS: busPIRone HCL 10 MG TABLET PO ×2 (10:08→17:49)
[2022-05-30] MEDS: ROSUVASTATIN 10 MG TABLET 40 MG PO (10:19)
[2022-05-30 11:59] LABS: Glucose Point of Care 201 mg/dl (65-105)
--- NOTE | 2022-05-30 12:49 | PM.IMPN ---
Progress Note: A&P Assessment and Plan (1) COPD (chronic obstructive pulmonary disease): Code(s): J44.9 - Chronic obstructive pulmonary disease, unspecified Status: Acute Assessment and Plan: History of. Minimal wheezing on examination. (2) Hypoxia: Code(s): R09.02 - Hypoxemia Status: Acute Assessment and Plan: Likely secondary to underlying pneumonia (3) Pneumonia: Code(s): J18.9 - Pneumonia, unspecified organism Status: Acute Assessment and Plan: IV Rocephin and azithromycin. (4) Anemia: Code(s): D64.9 - Anemia, unspecified Status: Acute Assessment and Plan: Monitor hemoglobin. Check stool for blood -pending. Iron deficient. IV iron Will transfuse GI consult (5) Type 2 diabetes mellitus: Code(s): E11.9 - Type 2 diabetes mellitus without complications Status: Acute Assessment and Plan: Monitor blood sugar. Sliding scale insulin as needed. (6) Nonerosive esophageal reflux disease: Code(s): K21.9 - Gastro-esophageal reflux disease without esophagitis Status: Acute Assessment and Plan: Continue home PPI (7) Mixed hyperlipidemia: Code(s): E78.2 - Mixed hyperlipidemia Status: Acute Assessment and Plan: Continue home medications (8) Major depressive disorder, single episode, unspecified: Code(s): F32.9 - Major depressive disorder, single episode, unspecified Status: Acute Assessment and Plan: Chronic and stable. Continue meds (9) Metastatic breast cancer: Code(s): C50.919 - Malignant neoplasm of unspecified site of unspecified female breast Status: Acute Assessment and Plan: Chronic (10) Sepsis: Code(s): A41.9 - Sepsis, unspecified organism Status: Acute Assessment and Plan: With bacteremia. Gram-positive cocci in clusters. Start on vancomycin. Pharmacy to dose. Echo ordered -cardiology consult for possible RIANNA Subjective Date/time seen: 05/30/22 12:49 No complaints Exam Const: General: comfortable and no acute distress HENMT: Mouth: Yes moist mucous membranes Eyes: General: appearance normal, both eyes and all related structures Sclera: sclerae normal Neck: Neck: supple Resp: Effort & Inspection: normal respiratory effort Auscultation: diminished lung sounds Cardio: Rate: regular rate Rhythm: regular rhythm Heart sounds: no murmurs Skin: General skin exam: normal color Neuro: Speech: normal speech Psych: Mental Status: mental status grossly normal Affect: normal affect Objective Data Vital Signs Vital Signs: Vital Signs - 24 hr 05/29/22 13:30 05/29/22 13:45 05/29/22 13:55 Temperature Pulse Rate 58 L 56 L 59 L Respiratory Rate 14 14 15 Blood Pressure 173/79 H 173/65 H 172/85 H Pulse Oximetry 100 100 100 Oxygen Delivery Nasal Cannula Nasal Cannula Nasal Cannula Oxygen Flow Rate 3 3 3 05/29/22 14:00 05/29/22 14:15 05/29/22 14:25 Temperature Pulse Rate 66 53 L 51 L Respiratory Rate 14 17 15 Blood Pressure 161/70 H 161/61 H 142/60 H Pulse Oximetry 100 98 99 Oxygen Delivery Nasal Cannula Nasal Cannula BiPAP Oxygen Flow Rate 3 3 5 05/29/22 14:45 05/29/22 15:00 05/29/22 14:05 Temperature Pulse Rate 50 L 52 L 60 Respiratory Rate 13 16 14 Blood Pressure 160/65 H 172/65 H Pulse Oximetry 96 96 98 Oxygen Delivery BiPAP BiPAP Nasal Cannula Oxygen Flow Rate 5 2 3 05/29/22 14:10 05/29/22 14:30 05/29/22 15:15 Temperature Pulse Rate 55 L 52 L 56 L Respiratory Rate 13 15 Blood Pressure 154/67 H 142/59 H Pulse Oximetry 98 96 94 Oxygen Delivery Nasal Cannula BiPAP Room Air Oxygen Flow Rate 3 5 05/29/22 20:48 05/29/22 21:54 05/29/22 21:55 Temperature Pulse Rate 56 L 58 L Respiratory Rate 18 Blood Pressure Pulse Oximetry 93 Oxygen Delivery Room Air Oxygen Flow Rate 05/29/22 22:00 05/30/22 02:06 05/29/22 22:07 Temperature 96.9
--- NOTE | 2022-05-30 13:32 | WPDONCPN ---
Progress Note: A/P - Additional Plan will need monitor CBC-WBC if decrease more pronunced holding Ibrance may be in order and contact with her treating Oncologist - Time Spent With Patient Total time spent is greater than 50% in coordination of care (as documented) at patient's floor/unit and/or counseling patient: less than 15 minutes Subjective Interval history: patient has decreasing WBC likey related ti Ibrance-Pablciclib she is taking for her metastatic Breast cancer -this was discussed with patient and she is reluctant to stop without being in contact with her Oncologist Review of Systems - Review of Systems All systems reviewed & are unremarkable except as noted in HPI and bel Exam Vital signs: Temp Pulse Resp BP Pulse Ox O2 Del Method O2 Flow Rate 36.2 C L 65 18 139/44 L 93 Room Air 2 05/30/22 06:00 05/30/22 10:07 05/30/22 08:28 05/30/22 06:00 05/30/22 08:16 05/30/22 08:16 05/29/22 15:00 - Constitutional moderate distress PN: Objective Data - Labs CBC & Chem 7: 05/29/22 06:51 05/29/22 06:51 Labs: Laboratory Results - last 24 hr 05/29/22 05/30/22 05/30/22 17:13 07:51 11:55 POC Capillary Glucose 115 H 78 201 H
[2022-05-30 16:36] LABS: Glucose Point of Care 142 mg/dl (65-105)
[2022-05-30] MEDS: INSULIN GLARGINE (*BKC) 100 UNITS/ML 40 UNITS SUB-Q (17:49)
[2022-05-30] MEDS: CEFDINIR 300 MG CAPSULE PO (20:24)
[2022-05-30] MEDS: traZODone HCL 50 MG TABLET 100 MG PO (20:24)
[2022-05-30] MEDS: SERTRALINE HCL 25 MG TABLET PO (20:24)
[2022-05-30 22:53] LABS: Glucose Point of Care 133 mg/dl (65-105)
[2022-05-31] VITALS (10 sets, daily range): BP systolic 150–151; BP diastolic 48–56; PULSE 57–72; RESP 16–19; TEMP 36–36.7; O2SAT 92–98
[2022-05-31 07:27] LABS: Estimated CRCL calculation 26 ml/min; Estimated Glomerular Filt Rate 26
[2022-05-31 08:16] LABS: Glucose Point of Care 66 mg/dl (65-105)
[2022-05-31] MEDS: amLODIPine BESYLATE 5 MG TABLET 10 MG PO (08:27)
[2022-05-31] MEDS: ROSUVASTATIN 10 MG TABLET 40 MG PO (08:27)
[2022-05-31] MEDS: AZITHROMYCIN 250 MG TABLET 500 MG PO (08:27)
[2022-05-31] MEDS: buPROPion HCL XL (24 HR) 150 MG TABCR 300 MG PO (08:27)
[2022-05-31] MEDS: METOPROLOL TARTRATE 25 MG TABLET PO ×2 (08:28→20:41)
[2022-05-31] MEDS: PANTOPRAZOLE 40 MG TABLET PO ×2 (08:28→17:08)
[2022-05-31] MEDS: CEFDINIR 300 MG CAPSULE PO (08:28)
[2022-05-31] MEDS: busPIRone HCL 10 MG TABLET PO ×2 (08:28→17:08)
[2022-05-31] MEDS: ALBUTEROL SULFATE NEB 2.5 MG/3 ML INH 5 MG INHALATION ×4 (09:18→20:15)
[2022-05-31 11:39] LABS: Glucose Point of Care 143 mg/dl (65-105)
--- NOTE | 2022-05-31 12:32 | PM.IMPN ---
Progress Note: A&P Assessment and Plan (1) COPD (chronic obstructive pulmonary disease): Code(s): J44.9 - Chronic obstructive pulmonary disease, unspecified Status: Acute Assessment and Plan: History of. Minimal wheezing on examination. (2) Hypoxia: Code(s): R09.02 - Hypoxemia Status: Acute Assessment and Plan: Likely secondary to underlying pneumonia (3) Pneumonia: Code(s): J18.9 - Pneumonia, unspecified organism Status: Acute Assessment and Plan: IV Rocephin and azithromycin. (4) Anemia: Code(s): D64.9 - Anemia, unspecified Status: Acute Assessment and Plan: Monitor hemoglobin. Check stool for blood -pending. Iron deficient. IV iron Will transfuse GI consult (5) Type 2 diabetes mellitus: Code(s): E11.9 - Type 2 diabetes mellitus without complications Status: Acute Assessment and Plan: Monitor blood sugar. Sliding scale insulin as needed. (6) Nonerosive esophageal reflux disease: Code(s): K21.9 - Gastro-esophageal reflux disease without esophagitis Status: Acute Assessment and Plan: Continue home PPI (7) Mixed hyperlipidemia: Code(s): E78.2 - Mixed hyperlipidemia Status: Acute Assessment and Plan: Continue home medications (8) Major depressive disorder, single episode, unspecified: Code(s): F32.9 - Major depressive disorder, single episode, unspecified Status: Acute Assessment and Plan: Chronic and stable. Continue meds (9) Metastatic breast cancer: Code(s): C50.919 - Malignant neoplasm of unspecified site of unspecified female breast Status: Acute Assessment and Plan: Chronic (10) Sepsis: Code(s): A41.9 - Sepsis, unspecified organism Status: Acute Assessment and Plan: With bacteremia. Gram-positive cocci in clusters. Start on vancomycin. Pharmacy to dose. Echo ordered -cardiology consult for possible RIANNA Subjective Date/time seen: 05/31/22 12:32 No complaints Exam Const: General: comfortable and no acute distress HENMT: Mouth: Yes moist mucous membranes Eyes: General: appearance normal, both eyes and all related structures Sclera: sclerae normal Neck: Neck: supple Resp: Effort & Inspection: normal respiratory effort Auscultation: diminished lung sounds Cardio: Rate: regular rate Rhythm: regular rhythm Heart sounds: no murmurs Skin: General skin exam: normal color Neuro: Speech: normal speech Psych: Mental Status: mental status grossly normal Affect: normal affect Objective Data Vital Signs Vital Signs: Vital Signs - 24 hr 05/30/22 14:23 05/30/22 14:00 05/30/22 14:35 Temperature 96.7 F L Pulse Rate 64 65 66 Respiratory Rate 18 18 18 Blood Pressure 150/53 H Pulse Oximetry 100 Oxygen Delivery 05/30/22 20:24 05/30/22 20:00 05/30/22 22:00 Temperature 97.2 F L Pulse Rate 66 66 62 Respiratory Rate 18 18 Blood Pressure 152/56 H Pulse Oximetry 100 97 Oxygen Delivery Room Air 05/31/22 06:00 05/31/22 08:28 05/31/22 09:10 Temperature 97.2 F L Pulse Rate 62 62 66 Respiratory Rate 19 Blood Pressure 151/48 H Pulse Oximetry 92 95 Oxygen Delivery Room Air 05/31/22 09:10 05/31/22 09:22 Temperature Pulse Rate 66 63 Respiratory Rate 18 18 Blood Pressure Pulse Oximetry Oxygen Delivery Intake/Output Intake/Output: Intake & Output 05/28/22 05/29/22 05/30/22 05/31/22 23:59 23:59 23:59 23:59 Intake Total 1989 1480 1817 360 Output Total 833 644 4637 Balance 1190 1330 817 360 Meds/Results Medications: Active Medications Generic Name Dose Route Start Last Admin Trade Name Freq PRN Reason Stop Dose Admin Acetaminophen 650 mg 05/25/22 15:19 05/29/22 10:19 Acetaminophen 325 Mg Tablet PO 650 mg Q6H PRN Administration Mild Pain (1-3) or Fever Hydrocodone Bitart/Acetaminophen 1 tab 05/26/22 10:05 12
[2022-05-31 16:59] LABS: Glucose Point of Care 164 mg/dl (65-105)
[2022-05-31] MEDS: INSULIN GLARGINE (*BKC) 100 UNITS/ML 40 UNITS SUB-Q (17:08)
[2022-05-31 21:38] LABS: Glucose Point of Care 137 mg/dl (65-105)
[2022-05-31] MEDS: traZODone HCL 50 MG TABLET 100 MG PO (22:10)
[2022-05-31] MEDS: SERTRALINE HCL 25 MG TABLET PO (22:10)
[2022-06-01 06:00] VITALS: BP 153/60; PULSE 62; RESP 18; TEMP 35.9; O2SAT 94
[2022-06-01] MEDS: LORazepam (*CRX) 0.5 MG TABLET PO (06:46)
[2022-06-01 07:43] LABS: Glucose Point of Care 56 mg/dl (65-105)
[2022-06-01] MEDS: hydrOXYzine HCL 10 MG TABLET PO (09:00)
[2022-06-01 09:01] VITALS: PULSE 62
[2022-06-01] MEDS: PANTOPRAZOLE 40 MG TABLET PO (09:01)
[2022-06-01] MEDS: amLODIPine BESYLATE 5 MG TABLET 10 MG PO (09:01)
[2022-06-01] MEDS: METOPROLOL TARTRATE 25 MG TABLET PO (09:01)
[2022-06-01] MEDS: SUCRALFATE 1 GM TABLET PO (09:01)
[2022-06-01] MEDS: ROSUVASTATIN 10 MG TABLET 40 MG PO (09:01)
[2022-06-01] MEDS: busPIRone HCL 10 MG TABLET PO (09:01)
[2022-06-01] MEDS: buPROPion HCL XL (24 HR) 150 MG TABCR 300 MG PO (09:01)
[2022-06-01] MEDS: ALBUTEROL SULFATE NEB 2.5 MG/3 ML INH 5 MG INHALATION ×2 (10:03→10:05)
[2022-06-01 10:06] VITALS: PULSE 68; RESP 16
--- NOTE | 2022-06-01 11:05 | PM.DS ---
DS: Admitting Diagnosis Discharge Date June 01, 2022 Admitting Diagnosis Pneumonia and bacteremia DS: Discharge Diagnosis Discharge Diagnosis (1) COPD (chronic obstructive pulmonary disease): Code(s): J44.9 - Chronic obstructive pulmonary disease, unspecified Status: Acute Assessment and Plan: History of. Minimal wheezing on examination. (2) Hypoxia: Code(s): R09.02 - Hypoxemia Status: Acute Assessment and Plan: Likely secondary to underlying pneumonia (3) Pneumonia: Code(s): J18.9 - Pneumonia, unspecified organism Status: Acute Assessment and Plan: IV Rocephin and azithromycin. (4) Anemia: Code(s): D64.9 - Anemia, unspecified Status: Acute Assessment and Plan: Monitor hemoglobin. Check stool for blood -pending. Iron deficient. IV iron Will transfuse GI consult (5) Type 2 diabetes mellitus: Code(s): E11.9 - Type 2 diabetes mellitus without complications Status: Acute Assessment and Plan: Monitor blood sugar. Sliding scale insulin as needed. (6) Nonerosive esophageal reflux disease: Code(s): K21.9 - Gastro-esophageal reflux disease without esophagitis Status: Acute Assessment and Plan: Continue home PPI (7) Mixed hyperlipidemia: Code(s): E78.2 - Mixed hyperlipidemia Status: Acute Assessment and Plan: Continue home medications (8) Major depressive disorder, single episode, unspecified: Code(s): F32.9 - Major depressive disorder, single episode, unspecified Status: Acute Assessment and Plan: Chronic and stable. Continue meds (9) Metastatic breast cancer: Code(s): C50.919 - Malignant neoplasm of unspecified site of unspecified female breast Status: Acute Assessment and Plan: Chronic (10) Sepsis: Code(s): A41.9 - Sepsis, unspecified organism Status: Acute Assessment and Plan: With bacteremia. Gram-positive cocci in clusters. Start on vancomycin. Pharmacy to dose. Echo ordered -cardiology consult for possible RIANNA DS: Summary Hospital Course Hospital Course: Patient is a 72-year-old female with known history of breast cancer came in with pneumonia. She was given IV antibiotics and did exceptionally well. Not requiring any oxygen and can be discharged. Otherwise she did have 1 positive blood culture which was possible contamination but given the bug that was we decided to go ahead and treat with 7 days of vancomycin. Patient received IV antibiotics for 7 days and never was septic and did exceptionally well. Patient can be discharged from the hospital Time Spent with Patient Time attestation: Total time spent providing and/or coordinating discharge services: Exam Const: General: comfortable and no acute distress HENMT: Mouth: Yes moist mucous membranes Eyes: General: appearance normal, both eyes and all related structures Sclera: sclerae normal Neck: Neck: supple Resp: Effort & Inspection: normal respiratory effort Auscultation: diminished lung sounds Cardio: Rate: regular rate Rhythm: regular rhythm Heart sounds: no murmurs Skin: General skin exam: normal color Neuro: Speech: normal speech Psych: Mental Status: mental status grossly normal Affect: normal affect DS: Data Data Completed and Pending Labs on day of discharge: Labs from last 24 hours 06/01/22 05/31/22 05/31/22 07:35 20:38 16:54 POC Capillary Glucose 56 L* 137 H 164 H 05/31/22 11:29 POC Capillary Glucose 143 H Preliminary micro results at discharge 05/28/22 08:36 Blood Culture - Preliminary Blood 05/28/22 08:34 Blood Culture - Preliminary Blood Discharge Plan Discharge Attending physician on discharge: Sergey Loza Consulting providers: Jerzy Ash I. ; Wisam Santana Discharging Clinician: Sergey Loza Patient Disposition: Home Health Service Act
[2022-06-01 11:28] LABS: Glucose Point of Care 231 mg/dl (65-105)
== END 2022-06-01 15:15 | disposition home health service (06) | DRG 194 ==
LOC: ANHED 05-25 06:52 → ANH3MEDSUR 05-25 07:11
PROVIDERS: Internal Medicine; Admitting Provider Internal Medicine; Emergency Provider Emergency Medicine; PCP Family Medicine; Visit Provider Chiropractor
PROC: B24BZZ4 Ultrasonography of Heart with Aorta, Transesophageal (ICD-10-PCS; CPT 93312; principal; 2022-05-29 13:00)
DX: J18.9 Pneumonia, unspecified organism (principal); J44.0 Chronic obstructive pulmonary disease with (acute) lower respiratory infection; R78.81 Bacteremia; C79.51 Secondary malignant neoplasm of bone; I42.9 Cardiomyopathy, unspecified; B95.8 Unspecified staphylococcus as the cause of diseases classified elsewhere; E11.22 Type 2 diabetes mellitus with diabetic chronic kidney disease; I12.9 Hypertensive chronic kidney disease with stage 1 through stage 4 chronic kidney disease, or unspecified chronic kidney disease; N18.9 Chronic kidney disease, unspecified; Z20.822 Contact with and (suspected) exposure to COVID-19; R09.02 Hypoxemia; D50.9 Iron deficiency anemia, unspecified; K21.9 Gastro-esophageal reflux disease without esophagitis; E78.2 Mixed hyperlipidemia; F32.9 Major depressive disorder, single episode, unspecified; C50.919 Malignant neoplasm of unspecified site of unspecified female breast; Z66 Do not resuscitate; K44.9 Diaphragmatic hernia without obstruction or gangrene; I25.10 Atherosclerotic heart disease of native coronary artery without angina pectoris; Z87.891 Personal history of nicotine dependence; I25.2 Old myocardial infarction
CPT/HCPCS: 36415; 36430; 71046; 78580; 80048; 80053; 80202; 82565; 82948; 83540; 83550; 85025; 85055; 86850; 86900; 86901; 86920; 87040; 87147; 87181; 87186; 87637; 93005; 93306; 93312; 93320; 93325; 94640; 97110; 97161; 97165; 97530; 97535; 99285; A9270; A9540; J0456; J0696; J1756; J1815; J1940; J2250; J3010; J3370; J7040; J7050; J7512; P9016

== ENCOUNTER 2022-08-29 13:34 | Outpatient (CLI) | payer OTHER, SELFPAY ==
--- NOTE | ~2022-08-29 | CT_ITS ---
EXAMINATION: CT chest abdomen pelvis wo con DATE: 08/29/2022 14:42 INDICATION: Malignant neoplasm of the breast TECHNIQUE: Transaxial computed tomographic images of the chest, abdomen, and pelvis were obtained wit hout intravenous contrast. The dose-length product (DLP) was 934.32 mGy-cm. Automated exposure contro l and iterative reconstruction technique were employed. COMPARISON: 01/27/2022 FINDINGS: CHEST CT: There is a stable 16 mm groundglass opacity in the left lower lobe. Chronic small pulmonary nodules m easuring up to 3 mm are stable. There is a small cluster of tree-in-bud nodules in the right lower lo be, likely infectious or inflammatory. No pleural effusion or pneumothorax. No pathologically enlarge d thoracic lymph nodes are identified. The heart size is normal. Calcified coronary artery atheroscle rosis is noted there is a trace pericardial effusion. Sclerotic metastatic lesions are again noted in the T8 and T9 vertebral bodies, the T7 spinous process and the right eighth rib without significant change. ABDOMEN/PELVIS CT: There are multiple hypoattenuating metastases of the liver, several of which have increased in size. An approximately 3.8 cm confluence of masses in the right hepatic lobe previously measured 2.8 cm. Th ere are cysts of the liver which measure up to 3.3 cm. The spleen, pancreas, gallbladder, and adrenal glands are normal. The kidneys are unremarkable. There is calcified atherosclerosis of the aorta and many of the other arteries. No pathologically enlarged abdominal or pelvic lymph nodes are identifie d. Colonic diverticulosis is present without evidence of diverticulitis. Sclerotic metastases are aga in noted involving the L1, L2, L4, and L5 vertebral bodies. IMPRESSION: 1. Multiple liver metastases with interval worsening and multiple stable bone lesions, consistent wit h metastatic disease. Reviewed, dictated and finalized at location F. IMPRESSION: 1. Multiple liver metastases with interval worsening and multiple stable bone l esions, consistent with metastatic disease.
[2022-08-29 14:15] LABS: Estimated Glomerular Filt Rate 19
== END 2022-08-29 13:35 | disposition home or self-care (01) ==
PROVIDERS: PCP Family Medicine; Visit Provider Internal Medicine Medical Oncology
DX: C50.919 Malignant neoplasm of unspecified site of unspecified female breast (principal); C79.51 Secondary malignant neoplasm of bone
CPT/HCPCS: 71250; 74176

== ENCOUNTER 2022-09-30 07:00 | Outpatient (CLI) | payer OTHER, SELFPAY ==
[2022-10-01 13:00] VITALS: PULSE 63; O2SAT 97
[2022-10-01 13:20] VITALS: PULSE 75; O2SAT 95
[2022-10-01 13:30] VITALS: PULSE 73; O2SAT 96
--- NOTE | 2022-10-01 13:31 | HOMEO2EVAL ---
Evaluation was performed at [facility] Home Oxygen Evaluation RC: Home Oxygen (O2) Evaluation Start: 10/01/22 13:29 Freq: Status: Active Protocol: RPE Activity Type Activity Date Activity User E-sign Co-sign Detail Recorded Client Recorded Date Recorded By Document 10/01/22 13:00 [facility] [email or web address] 10/01/22 13:31 [facility] Document 10/01/22 13:20 [facility] [email or web address] 10/01/22 13:31 [facility] Document 10/01/22 13:30 [facility] [email or web address] 10/01/22 13:31 [facility] 10/01/22 10/01/22 10/01/22 13:00 13:20 13:30 Home O2 Evaluation [Oxygen] -Test Phase Resting Exercise Resting -Oxygen Delivery Room Air Room Air Room Air [Pulse Oximetry] -Pulse Oximetry (90-100 %) 97 95 96 [Pulse Rate] -Pulse Rate (60-100 beats/min) 63 75 73 [Charges] -Treatment Charges O2 Evaluation - Outpatient
--- NOTE | 2022-10-01 13:35 | PCRCNOTE ---
HOME O2 EVAL COMPLETE AND FAXED TO [facility].
== END 2022-10-01 12:40 | disposition home or self-care (01) ==
PROVIDERS: PCP Surgery; Visit Provider Nurse Practitioner Family
DX: R09.02 Hypoxemia (principal)
CPT/HCPCS: 94618

== ENCOUNTER 2022-11-07 12:56 | Observation (INO) | payer OTHER, SELFPAY ==
[2022-11-07] VITALS (11 sets, daily range): BP systolic 137–176; BP diastolic 68–79; PULSE 68–94; RESP 10–19; TEMP 36.1; O2SAT 97–100; BMI 30.1
--- NOTE | ~2022-11-07 | CT_ITS ---
EXAMINATION: CT abdomen pelvis wo con DATE: 11/11/2022 09:36 INDICATION: Low abdominal pain. Nausea and vomiting. TECHNIQUE: Computed tomography (CT) of the abdomen and pelvis was performed without intravenous contr ast. Automated exposure control and iterative reconstruction technique were employed. The dose-length product was 859.11 mGy-cm. COMPARISON: CT abdomen and pelvis 08/29/2022, 11/27/2019 FINDINGS: The visualized portions of the lung bases demonstrate mild atelectasis. Again seen are a fe w nodules in right lower lobe measuring up to 3 mm. No pleural effusion. The heart size is normal. Th ere are coronary artery calcifications. No pericardial effusion. There is a large sliding hiatal herbert ia. There are cysts in the liver measuring up to 3.4 cm. There are greater than 10 ill-defined masses in the liver measuring up to at least 2.4 cm. The gallbladder is normal in size. The spleen, pancrea s, and adrenal glands are normal. There is cortical thinning of the kidneys. There is a 10 mm cyst in left kidney. There is calcified atherosclerosis of the aorta and many of the other arteries. There i s diverticulosis of the colon without evidence of diverticulitis. There are no dilated loops of bowel . The appendix is not visualized. There are no pathologically enlarged lymph nodes. There is no free intraperitoneal fluid. There are chronic bilateral L5 pars defects. There is 5 mm anterolisthesis of L5 on S1. There is severe thoracic and lumbar spondylosis. There are numerous scattered sclerotic les ions of bone, consistent with metastatic disease. IMPRESSION: 1. Liver masses and bone lesions, stable from 08/29/2022, consistent metastatic disease. 2. Large sliding hiatal hernia. Reviewed, dictated and finalized at location A.
[2022-11-07] MEDS: SODIUM CHLORIDE 0.9% IV 1,000 ML 999 ML IV CONT (13:59)
[2022-11-07] MEDS: ONDANSETRON INJ 4 MG/2 ML VIAL IV PUSH ×2 (13:59→23:22)
[2022-11-07 14:11] LABS: Basophils Percent Auto 0.5 % (0.2-1.2); Eosinophils Absolute Auto 0.1 K/mm3 (0-0.3); Hematocrit 41.1 % (37.0-47.0); Hemoglobin 14.2 g/dL (12.0-15.0); Immature Granulocyte Absolute 0.03 K/mm3 (0.00-0.031); Immature Granulocyte Percent A 0.5 % (0-0.5); Lymphocytes Absolute Auto 0.51 K/mm3 (0.9-3.2); Lymphocytes Percent Auto 8.1 % (18.3-44.2); Mean Corpuscular HGB Conc 34.5 g/dl (32-36); Mean Corpuscular Hemoglobin 30.3 pg (26-34); Mean Corpuscular Volume 87.6 fl (80-100); Mean Platelet Volume 9.6 fl (7.4-10.4); Monocytes Absolute Auto 0.6 K/mm3 (0.1-0.6); Monocytes Percent Auto 9.4 % (2.6-8.5); Neutrophils Percent Auto 80.5 % (45.5-73.1); Platelet Count Result 168 k/mm3 (150-375); Red Blood Count 4.69 M/mm3 (4.2-5.4); Red Cell Distribution Width 13.2 % (11.5-14.5); White Blood Count 6.3 K/mm3 (4.5-10.0)
[2022-11-07 14:32] LABS: Alanine Aminotransferase 28 U/L (6-35); Albumin Level 4.5 g/dL (3.5-5.1); Alkaline Phosphatase 93 U/L (38-126); Anion Gap 17 mmol/L (8-16); Aspartate Amino Transferase 39 U/L (14-36); Blood Urea Nitrogen 33 mg/dL (7-17); Calcium 9.7 mg/dL (8.4-10.2); Carbon Dioxide 26 mmol/L (22-30); Chloride 89 mmol/L (98-107); Estimated Glomerular Filt Rate 15; Glucose 199 mg/dL (65-110); Lipase 129 U/L (23-300); Potassium 2.7 mmol/L (3.4-5.0); Sodium 132 mmol/L (137-145)
[2022-11-07] MEDS: POTASSIUM CHLORIDE 20 MEQ ER TABLET 40 MEQ PO (14:48)
[2022-11-07] MEDS: POTASSIUM CHLORIDE INJ 40 MEQ in SODIUM CHLORIDE 0.9% IV 500 ML 130 MEQ IVPB (14:55)
--- NOTE | 2022-11-07 16:51 | ED.GENADULT ---
HPI - General Adult General Chief complaint: Nausea/Vomiting/Diarrhea Stated complaint: UTI, dry heaves, dehydration Time Seen by Provider: 11/07/22 13:50 History of Present Illness HPI narrative: Patient is a 72-year-old female with history of metastatic liver cancer who presents ER with nausea and vomiting. Ongoing over the last week. Was recently stopped on her chemo regimen due to the symptoms. She has no fevers or chills or sweats. No productive cough. No abdominal discomfort. Denies diarrhea. Related Data Home Medications Medication Instructions Recorded Confirmed lorazepam 0.5 mg tablet 0.5 mg PO HS PRN Anxiety 09/12/20 10/08/22 sucralfate 1 gram tablet 1 g PO Q6H PRN Gastric Reflux 02/04/22 10/08/22 trazodone 50 mg tablet 50 mg PO QHS PRN insomnia 02/04/22 10/08/22 bupropion HCl 300 mg 24 hr tablet, 300 mg PO DAILY 05/25/22 10/08/22 extended release polyethylene glycol 3350 17 17 gm PO PRN PRN Constipation 05/25/22 10/08/22 gram/dose oral powder (Miralax) sertraline 25 mg tablet (Zoloft) 25 mg PO HS 05/25/22 10/08/22 trazodone 100 mg tablet 100 mg PO HS 05/25/22 10/08/22 hydrocodone 5 mg-acetaminophen 325 1 tablet PO Q4H PRN Pain 05/26/22 10/08/22 mg tablet potassium chloride 10 mEq 10 meq PO BID 07/16/22 10/08/22 tablet,extended release Allergies Allergy/AdvReac Type Severity Reaction Status Date / Time prochlorperazine Allergy Intermediate LOCK JAW Verified 11/07/22 13:14 Review of Systems Review of Systems: All systems reviewed & are unremarkable except as noted in HPI and below Constitutional: Constitutional: Denies chills, Reports fatigue and Denies fever(s) ENT: Denies nasal congestion and Denies sore throat Cardiovascular: Cardiovascular: Denies chest pain, Denies rapid heart rate and Denies radiating jaw, neck or arm pain Respiratory: Respiratory: Denies cough and Denies dyspnea Gastrointestinal: Gastrointestinal: Denies abdominal pain, Denies diarrhea, Reports nausea and Reports vomiting Genitourinary: Genitourinary: Denies dysuria and Denies flank pain PMFSH Past Medical History Medical History (Updated 11/07/22 @ 17:51 by Gaudencio Young MD) Chronic obstructive pulmonary disease HSV-1 (herpes simplex virus 1) infection Hypertension Insulin dependent diabetes mellitus Metastatic breast cancer Mixed hyperlipidemia Monoclonal gammopathy of undetermined significance Nonerosive esophageal reflux disease Obstructive sleep apnea Stage 4 chronic kidney disease Surgical History Surgical History (Updated 11/07/22 @ 17:43 by Jerrica Gallego PA-C) History of bilateral mastectomy Family History Family History Mother Family history of malignant neoplasm of breast in first degree relative Other Family history of cardiovascular disease Family history of malignant neoplasm Hypertension Social History Social History (Updated 11/07/22 @ 17:38 by Jerrica Gallego PA-C) Social History: Surrogate medical decision maker: Sanna Newell, maikel. Code status: Full code. Smoking packs per day: 1 Smoking cigarettes per day: 20.0 Years smoked: 20 Smoking pack-years: 20.00 Smoking status: Former smoker Second hand tobacco smoke exposure: No Alcohol intake: never Drinks per week: 1 Alcohol use details: Rare alcohol use in moderation. Substance use: never Substance use type: does not use Lack of Transportation: No Lack of Food: Never True Current Housing: I Have Housing Concerned About Future Housing: No Difficulty Paying Gas/Electric Bills: No Difficulty Paying for Meds: No Currently Unemployed: No Education: High School Diploma/GED Difficulty w/ Childcare or Family Care: No Living arrangements: alone Occupation/Education: retired Spiritual care concerns: No Exam Narrative: GENERAL: Well-appearing, well-nourished, and in no acute distress. HEAD: Normocephal
[2022-11-07] MEDS: POTASSIUM CHLORIDE 20 MEQ ER TABLET PO (17:13)
--- NOTE | 2022-11-07 17:34 | PM.IMHP ---
H&P: HPI History of Present Illness Date/Time: 11/07/22 18:30 Chief Complaint: Nausea, dry heaves, weakness. Narrative: This is a pleasant 72-year-old female with metastatic breast cancer, GERD, hiatal hernia, hypertension, insulin-dependent diabetes, COPD, chronic kidney disease, and other comorbidities who presented to the emergency department via private vehicle for evaluation of nausea, dry heaves, and weakness. The patient provides the following history. She is a patient of Dr. Graves and he told the patient to stop taking her oral chemotherapy last week; she is not certain why but may be because she was feeling weak at her last appointment. She had a follow-up visit with him today and she was sent directly to the ED as she reported to him that she was profoundly weak, nauseated, and that she had not had any food for 4 days. She endorses worsening heartburn, bloating, and belching recently and in fact she was started on Carafate recently for her symptoms. She has also been taking Pepto-Bismol for her symptoms. She believes that her symptoms are related to a known hiatal hernia. She has frequent nausea and dry heaves but she has not vomited however she has not had anything to eat. She had a fall last night while trying to clean up spilled soda on the floor; she denies head trauma and loss of consciousness in the fall. She has no known history of peptic ulcers and she has not noticed any blood in the stools. She is not having any chest pain shortness of breath at this time however recently she has had intermittent episodes of fleeting, sharp shooting pain in the right anterior chest. She sees no pattern as to when this occurs and she denies that it is worse with cough, movement, or deep inspiration. She denies fever, sinus congestion, sore throat, exertional chest pain, palpitations, shortness of breath, cough, vomiting, and dysuria. She has had some loose stools but nothing significant. Vital signs have been stable since arrival. Her labs were significant for a WBC count of 6.3, sodium 132, potassium 2.7, chloride 89, carbon dioxide 26, anion gap 17, BUN 33, creatinine 3.00. She is being admitted in this setting for IV fluid rehydration and correction of her electrolyte abnormalities. Of note upper and lower endoscopies per Dr. Soto in January 2022 showed NERD, hiatal hernia, gastric polyps, internal hemorrhoids, and diverticulosis. Review of Systems Review of Systems: Twelve systems were reviewed and are negative except for as per HPI. [facility] Past Medical History Medical History Chronic obstructive pulmonary disease HSV-1 (herpes simplex virus 1) infection Hypertension Insulin dependent diabetes mellitus Metastatic breast cancer Mixed hyperlipidemia Monoclonal gammopathy of undetermined significance Nonerosive esophageal reflux disease Obstructive sleep apnea Stage 4 chronic kidney disease Surgical History Surgical History History of bilateral mastectomy History of tonsillectomy Family History Family History Mother Family history of malignant neoplasm of breast in first degree relative Other Family history of cardiovascular disease Family history of malignant neoplasm Hypertension Social History Social History Social History: Surrogate medical decision maker: Sanna Newell, daughter. Code status: Full code. Smoking packs per day: 1 Smoking cigarettes per day: 20.0 Years smoked: 20 Smoking pack-years: 20.00 Smoking status: Former smoker Second hand tobacco smoke exposure: No Alcohol intake: never Drinks per week: 1 Alcohol use details: Rare alcohol use in moderation. Substance use: never Substance use type: does not use Lack of Transportation: No Lack of Food: Ne
--- NOTE | 2022-11-07 17:49 | ADMGEN ---
This patient, Shahnaz Newell, was admitted to Medical Room 348-01. Patient/family oriented to hospital policies and general routines including ID bracelet, bed and alarms, visiting hours, pain management, procedures, bathroom and other care routines, personal items, smoking policy, room service/diet, and visiting hours. Information on how to activate the Rapid Response Team has been discussed. Patient/Family are encouraged to report perceived risks to care and to ask questions if they do not understand what they are told or what they should do.
[2022-11-07 18:01] LABS: Appearance Urine Cloudy (Clear); Bacteria Urine None Seen /hpf; Bilirubin Urine Negative (Negative); Blood Urine 1+ (Negative); Color Urine Yellow (Yellow); Glucose Urine UA Negative (Negative); Ketones Urine Trace mg/dL (Negative); Leukocyte Esterase Ur Trace LEU/UL (Negative); Need Manual Microscopic Reviewed; Nitrate Urine Negative (Negative); Non Pathogenic Casts >20; Protein Urine 2+ mg/dL (Negative); RBC Urine 0-2 /hpf (0-2); Squamous Epithelial Cell Urine Moderate /hpf (Few); Urobilinogen Urine 0.2 mg/dL (<2.0); WBC Urine 0-5 /hpf; pH Urine 5.5 (5.0-9.0)
[2022-11-07 18:02] LABS: Add Urine Microscopic? YES
[2022-11-07 21:18] LABS: Glucose Point of Care 191 mg/dl (65-105)
[2022-11-07] MEDS: hydrOXYzine HCL 10 MG TABLET PO (23:21)
[2022-11-07] MEDS: traZODone HCL 50 MG TABLET PO (23:21)
[2022-11-07] MEDS: HYDROcodone/acetaminophen (*CRX) 5-325 MG TABLET 1 TAB PO (23:22)
[2022-11-08] VITALS (11 sets, daily range): BP systolic 134–144; BP diastolic 48–58; PULSE 67–87; RESP 18; TEMP 36.3–36.6; O2SAT 96–100
[2022-11-08 00:37] LABS: Anion Gap 14 mmol/L (8-16); Blood Urea Nitrogen 30 mg/dL (7-17); Calcium 8.6 mg/dL (8.4-10.2); Carbon Dioxide 19 mmol/L (22-30); Chloride 99 mmol/L (98-107); Creatine Kinase 233 U/L (30-135); Estimated CRCL calculation 19 ml/min; Estimated Glomerular Filt Rate 18; Glucose 118 mg/dL (65-110); Magnesium 1.7 mg/dL (1.6-2.3); Potassium 3.3 mmol/L (3.4-5.0); Sodium 132 mmol/L (137-145)
[2022-11-08 00:41] LABS: D Dimer 0.54 ug/mL (<0.48)
[2022-11-08] MEDS: SODIUM CHLORIDE 0.9% IV 1,000 ML 100 ML IV CONT ×3 (00:48→20:04)
--- NOTE | 2022-11-08 01:01 | ECG_ITS ---
Measurements Intervals [place] Rate: 69 P: 69 TX: 218 QRS: -46 QRSD: 143 T: 97 QT: 483 QTc: 518 Interpretive Statements SINUS RHYTHM WITH FIRST DEGREE AV BLOCK INTRAVENTRICULAR CONDUCTION DELAY [130+ ms QRS DURATION] LEFT VENTRICULAR HYPERTROPHY PROBABLE LATERAL MYOCARDIAL INFARCTION , OF INDETERMINATE AGE [35 ms Q WAVE IN I/aVL/V5/V6] COMPARED TO ECG 05/24/2022 19:00:39 FIRST DEGREE AV BLOCK NOW PRESENT Electronically Signed On 11-08-2022 9:02:57 CDT by Payton Frost M.D.
[2022-11-08] MEDS: POTASSIUM CHLORIDE 20 MEQ ER TABLET PO ×3 (02:11→17:14)
[2022-11-08 02:39] LABS: Hemoglobin A1C 7.1 % (<5.7)
[2022-11-08] MEDS: SUCRALFATE 1 GM TABLET PO ×4 (05:36→20:03)
[2022-11-08] MEDS: FLUTICASONE/UMECLIDIN/VILANTER 100-62.5-25 MCG ELLIPTA 1 PUFF INHALATION (08:01)
[2022-11-08 08:19] LABS: Glucose Point of Care 103 mg/dl (65-105)
[2022-11-08] MEDS: POTASSIUM CHLORIDE 10 MEQ ER TABLET 20 MEQ PO (09:07)
[2022-11-08] MEDS: PANTOPRAZOLE 40 MG TABLET PO ×2 (09:09→20:03)
[2022-11-08] MEDS: busPIRone HCL 10 MG TABLET PO ×2 (09:09→20:03)
[2022-11-08] MEDS: ROSUVASTATIN 10 MG TABLET 40 MG PO (09:09)
[2022-11-08] MEDS: amLODIPine BESYLATE 5 MG TABLET PO (09:09)
[2022-11-08] MEDS: ASPIRIN 81 MG ENTERIC TABLET PO (09:09)
[2022-11-08] MEDS: METOPROLOL TARTRATE 25 MG TABLET PO ×2 (09:10→20:03)
[2022-11-08] MEDS: buPROPion HCL XL (24 HR) 150 MG TABCR 300 MG PO (09:10)
[2022-11-08] MEDS: CHOLECALCIFEROL 1,000 UNITS TABLET 5000 UNITS PO (09:11)
[2022-11-08] MEDS: ENOXAPARIN 30 MG/0.3 ML SYRINGE SUB-Q (09:11)
[2022-11-08 12:15] LABS: Glucose Point of Care 170 mg/dl (65-105)
--- NOTE | 2022-11-08 14:17 | PM.IMPN ---
Progress Note: A&P Assessment and Plan (1) Acute hypokalemia: Code(s): E87.6 - Hypokalemia Status: Acute Assessment and Plan: Improving with IV hydration and oral supplements 11/08/2022 3.3 (2) Dehydration: Code(s): E86.0 - Dehydration Status: Acute Assessment and Plan: Improving with IV hydration 11/08/2022 tolerating p.o. intake (3) Acute on chronic kidney failure: Code(s): N17.9 - Acute kidney failure, unspecified; N18.9 - Chronic kidney disease, unspecified Status: Acute Assessment and Plan: Creatinine 3.0 admission 11/07/2022 11/08/2022 2.6 Continue IV hydration (4) Type 2 diabetes mellitus: Code(s): E11.9 - Type 2 diabetes mellitus without complications Status: Acute Assessment and Plan: Continue current regimen A1c 7.1% 11/08/2022 fasting blood sugar 56, pre lunch 231 (5) Chronic obstructive pulmonary disease: Code(s): J44.9 - Chronic obstructive pulmonary disease, unspecified Status: Acute Assessment and Plan: Clinically stable (6) Nonerosive esophageal reflux disease: Code(s): K21.9 - Gastro-esophageal reflux disease without esophagitis Status: Acute Assessment and Plan: Clinically stable (7) MGUS (monoclonal gammopathy of unknown significance): Code(s): D47.2 - Monoclonal gammopathy Status: Acute Assessment and Plan: Follows with Oncology (8) RLS (restless legs syndrome): Code(s): G25.81 - Restless legs syndrome Status: Acute Assessment and Plan: Controlled (9) Metastatic breast cancer: Code(s): C50.919 - Malignant neoplasm of unspecified site of unspecified female breast Status: Acute Assessment and Plan: Follows with Oncology Last dose of her 3rd triad chemotherapy 10/31/2022, stopped by oncologist due to side effects 11/08/2022 she expresses interest in comfort care only. Subjective Date/time seen: 11/08/22 14:17 Interval history: Follow-up nausea vomiting diarrhea with acute dehydration and acute kidney injury and hypokalemia, admitted 11/07/2022. Feeling much better. Tolerating diet. Only 2 loose stools today. Some mild cramping prior to each stool. No other abdominal pain. No bleeding. No chest pain or shortness of breath. No fevers or chills. Generalized weakness but nothing focal. Review of Systems Review of Systems: All systems reviewed & are unremarkable except as noted in HPI and below Exam Narrative: HEENT: PERRL, sclerae nonicteric, pharyngeal mucosa pink and intact NECK: No JVD CHEST: Clear to auscultation. Normal effort. HEART: NL S1/S2, regular, no murmur ABDOMEN: BS+, soft, nontender, no mass, no bruits EXTREMITIES: No cyanosis, edema, or clubbing NEUROLOGIC: CN intact and symmetric to inspection. MUSCULOSKELETAL: Tone and strength symmetric. PSYCH: Alert. Oriented to person, place, and time. Objective Data Vital Signs Vital Signs: Vital Signs - 24 hr 11/07/22 14:47 11/07/22 15:00 11/07/22 15:01 Temperature Pulse Rate 74 73 70 Respiratory Rate 14 10 L 10 L Blood Pressure 176/68 H Pulse Oximetry Oxygen Delivery 11/07/22 15:15 11/07/22 15:32 11/07/22 15:48 Temperature Pulse Rate 68 69 72 Respiratory Rate 14 12 16 Blood Pressure Pulse Oximetry 98 Oxygen Delivery 11/07/22 16:00 11/07/22 16:17 11/07/22 17:30 Temperature Pulse Rate 73 70 Respiratory Rate 16 19 Blood Pressure 137/79 155/77 H Pulse Oximetry 97 Oxygen Delivery 11/07/22 18:41 11/07/22 20:00 11/07/22 20:00 Temperature 97 F L Pulse Rate 79 72 Respiratory Rate 18 Blood Pressure 160/70 H Pulse Oximetry 100 Oxygen Delivery Room Air 11/08/22 00:00 11/08/22 04:00 11/08/22 05:13 Temperature 97.3 F L Pulse Rate 71 73 70 Respiratory Rate 18 Blood Pressure 134/48 L Pulse Oximetry 96 Oxygen Delivery 11/08/22 08:04 10/30
[2022-11-08] MEDS: HYDROcodone/acetaminophen (*CRX) 5-325 MG TABLET 1 TAB PO (15:22)
[2022-11-08 17:13] LABS: Glucose Point of Care 154 mg/dl (65-105)
[2022-11-08] MEDS: SERTRALINE HCL 50 MG TABLET PO (20:03)
[2022-11-08] MEDS: INSULIN ASPART (*BKC) 100 UNITS/ML 40 UNITS SUB-Q (20:04)
[2022-11-08 21:21] LABS: Glucose Point of Care 176 mg/dl (65-105)
[2022-11-08] MEDS: traZODone HCL 50 MG TABLET PO (21:40)
[2022-11-09] VITALS (8 sets, daily range): BP systolic 126–157; BP diastolic 57–76; PULSE 58–88; RESP 16–20; TEMP 36.6; O2SAT 97–100
[2022-11-09] MEDS: SUCRALFATE 1 GM TABLET PO (05:42)
[2022-11-09] MEDS: ENOXAPARIN 30 MG/0.3 ML SYRINGE SUB-Q (08:15)
[2022-11-09] MEDS: ASPIRIN 81 MG ENTERIC TABLET PO (08:16)
[2022-11-09] MEDS: buPROPion HCL XL (24 HR) 150 MG TABCR 300 MG PO (08:17)
[2022-11-09] MEDS: POTASSIUM CHLORIDE 10 MEQ ER TABLET 20 MEQ PO (08:17)
[2022-11-09] MEDS: ROSUVASTATIN 10 MG TABLET 40 MG PO (08:18)
[2022-11-09] MEDS: CHOLECALCIFEROL 1,000 UNITS TABLET 5000 UNITS PO (08:18)
[2022-11-09] MEDS: METOPROLOL TARTRATE 25 MG TABLET PO ×2 (08:19→21:05)
[2022-11-09] MEDS: POTASSIUM CHLORIDE 20 MEQ ER TABLET PO (08:19)
[2022-11-09] MEDS: PANTOPRAZOLE 40 MG TABLET PO ×2 (08:20→21:00)
[2022-11-09] MEDS: busPIRone HCL 10 MG TABLET PO ×2 (08:20→21:05)
[2022-11-09] MEDS: amLODIPine BESYLATE 5 MG TABLET PO (08:20)
[2022-11-09 08:26] LABS: Glucose Point of Care 81 mg/dl (65-105)
[2022-11-09] MEDS: FLUTICASONE/UMECLIDIN/VILANTER 100-62.5-25 MCG ELLIPTA 1 PUFF INHALATION (08:53)
[2022-11-09 09:31] LABS: Hematocrit 36.3 % (37.0-47.0); Hemoglobin 11.9 g/dL (12.0-15.0); Immature Platelet Fraction Pct 2.9 % (0.9-11.2); Mean Corpuscular HGB Conc 32.8 g/dl (32-36); Mean Corpuscular Hemoglobin 30.1 pg (26-34); Mean Corpuscular Volume 91.9 fl (80-100); Mean Platelet Volume 9.5 fl (7.4-10.4); Platelet Count Result 153 k/mm3 (150-375); Red Blood Count 3.95 M/mm3 (4.2-5.4); Red Cell Distribution Width 13.4 % (11.5-14.5); White Blood Count 3.7 K/mm3 (4.5-10.0)
[2022-11-09 09:39] LABS: Albumin Level 3.5 g/dL (3.5-5.1); Anion Gap 6 mmol/L (8-16); Blood Urea Nitrogen 23 mg/dL (7-17); Calcium 8.4 mg/dL (8.4-10.2); Carbon Dioxide 23 mmol/L (22-30); Chloride 106 mmol/L (98-107); Estimated CRCL calculation 25 ml/min; Estimated Glomerular Filt Rate 24; Glucose 126 mg/dL (65-110); Phosphorus 2.4 mg/dL (2.5-4.5); Potassium 4.1 mmol/L (3.4-5.0); Sodium 135 mmol/L (137-145)
--- NOTE | 2022-11-09 10:57 | PM.IMPN ---
Progress Note: A&P Assessment and Plan (1) Acute hypokalemia: Code(s): E87.6 - Hypokalemia Status: Acute Assessment and Plan: Improved with IV hydration and oral supplements 11/08/2022 3.3 11/09 4.1 so PO supplements d/c'ed (2) Dehydration: Code(s): E86.0 - Dehydration Status: Acute Assessment and Plan: Improving with IV hydration 11/08/2022 tolerating p.o. intake 11/09 IV NS at 75 ml/hour 11/09 ordered PT/OT due to weakness and trepidation about going home (3) Acute on chronic kidney failure: Code(s): N17.9 - Acute kidney failure, unspecified; N18.9 - Chronic kidney disease, unspecified Status: Acute Assessment and Plan: Creatinine 3.0 admission 11/07/2022 11/08/2022 2.6 11/09/2022 2.0 (baseline 1.8-2.0) Continued IV hydration and f/u lab (4) Metastatic breast cancer: Code(s): C50.919 - Malignant neoplasm of unspecified site of unspecified female breast Status: Acute Assessment and Plan: Follows with Oncology Last dose of her 3rd triad chemotherapy 10/31/2022, stopped by oncologist due to side effects 11/08/2022 she expressed interest in comfort care only. (5) Type 2 diabetes mellitus: Code(s): E11.9 - Type 2 diabetes mellitus without complications Status: Acute Assessment and Plan: Continue current regimen A1c 7.1% 11/08/2022 fasting blood sugar 56, pre lunch 231, 11/09 FBS 126 (6) Chronic obstructive pulmonary disease: Code(s): J44.9 - Chronic obstructive pulmonary disease, unspecified Status: Acute Assessment and Plan: Clinically stable (7) Nonerosive esophageal reflux disease: Code(s): K21.9 - Gastro-esophageal reflux disease without esophagitis Status: Acute Assessment and Plan: Clinically stable (8) MGUS (monoclonal gammopathy of unknown significance): Code(s): D47.2 - Monoclonal gammopathy Status: Acute Assessment and Plan: Follows with Oncology (9) RLS (restless legs syndrome): Code(s): G25.81 - Restless legs syndrome Status: Acute Assessment and Plan: Controlled Subjective Date/time seen: 11/09/22 10:57 Interval history: Follow-up nausea vomiting diarrhea with acute dehydration and acute kidney injury and hypokalemia, admitted 11/07/2022. Feeling better.. Tolerating diet. Two formed stools this AM. Some mild cramping prior to each stool with some lower abdominal soreness persisting. No bleeding. No chest pain or shortness of breath. No fevers or chills. Generalized weakness but nothing focal. Review of Systems Review of Systems: All systems reviewed & are unremarkable except as noted in HPI and below Exam Narrative: HEENT: PERRL, sclerae nonicteric, pharyngeal mucosa pink and intact NECK: No JVD CHEST: Clear to auscultation. Normal effort. HEART: NL S1/S2, regular, no murmur ABDOMEN: BS+, soft, Mild hypogastric to bilateral LQ tenderness w/o guarding or rebound, no mass, no bruits EXTREMITIES: No cyanosis, edema, or clubbing NEUROLOGIC: CN intact and symmetric to inspection. MUSCULOSKELETAL: Tone and strength symmetric. PSYCH: Alert. Oriented to person, place, and time. Objective Data Vital Signs Vital Signs: Vital Signs - 24 hr 11/08/22 14:00 11/08/22 12:00 11/08/22 16:00 Temperature 97.6 F Pulse Rate 75 67 73 Respiratory Rate 18 Blood Pressure 135/52 L Pulse Oximetry 100 11/08/22 19:28 11/08/22 20:03 11/08/22 20:00 Temperature 97.9 F Pulse Rate 69 67 68 Respiratory Rate 18 Blood Pressure 144/58 H Pulse Oximetry 100 11/09/22 00:00 11/09/22 04:00 11/09/22 05:00 Temperature 97.9 F Pulse Rate 68 58 L 62 Respiratory Rate 18 Blood Pressure 126/57 L Pulse Oximetry 97 11/09/22 08:19 Temperature Pulse Rate 88 Respiratory Rate Blood Pressure Pulse Oximetry Intake/Output Intake/Output: Intake & Output 11/06/22 11/07/2210/30
--- NOTE | 2022-11-09 11:45 | PCPTNOTE ---
Attempted evaluation, but patient reports she is waiting on an anti-anxiety pill and she wants that to take effect before she does therapy.
[2022-11-09] MEDS: hydrOXYzine HCL 10 MG TABLET PO ×3 (11:52→21:12)
[2022-11-09 12:15] LABS: Glucose Point of Care 189 mg/dl (65-105)
--- NOTE | 2022-11-09 13:21 | PCPTNOTE ---
Attempted to see patient for 2nd time today, but patient napping.
--- NOTE | 2022-11-09 15:35 | PCOTNOTE ---
Attempted OT evaluation. Pt. refused states she was tired. Will attempt again as able.
[2022-11-09] MEDS: ONDANSETRON INJ 4 MG/2 ML VIAL IV PUSH (15:41)
[2022-11-09] MEDS: HYDROcodone/acetaminophen (*CRX) 5-325 MG TABLET 1 TAB PO (15:46)
[2022-11-09 17:05] LABS: Glucose Point of Care 209 mg/dl (65-105)
[2022-11-09] MEDS: INSULIN ASPART (*BKC) 100 UNITS/ML SUB-Q (17:42)
[2022-11-09] MEDS: INSULIN ASPART (*BKC) 100 UNITS/ML 40 UNITS SUB-Q (21:05)
[2022-11-09] MEDS: SERTRALINE HCL 50 MG TABLET PO (21:13)
[2022-11-09] MEDS: traZODone HCL 50 MG TABLET PO (21:13)
[2022-11-09] MEDS: SODIUM CHLORIDE 0.9% IV 1,000 ML 75 ML IV CONT (21:17)
[2022-11-09 21:18] LABS: Glucose Point of Care 167 mg/dl (65-105)
[2022-11-10] VITALS (8 sets, daily range): BP systolic 150–155; BP diastolic 55–65; PULSE 61–82; RESP 18–21; TEMP 36.4–36.6; O2SAT 96–100; BMI 31.8
[2022-11-10 05:54] LABS: Albumin Level 3.6 g/dL (3.5-5.1); Anion Gap 7 mmol/L (8-16); Blood Urea Nitrogen 19 mg/dL (7-17); Calcium 8.4 mg/dL (8.4-10.2); Carbon Dioxide 20 mmol/L (22-30); Chloride 110 mmol/L (98-107); Estimated CRCL calculation 29 ml/min; Estimated Glomerular Filt Rate 29; Glucose 82 mg/dL (65-110); Phosphorus 2.5 mg/dL (2.5-4.5); Potassium 4.4 mmol/L (3.4-5.0); Sodium 137 mmol/L (137-145)
[2022-11-10] MEDS: FLUTICASONE/UMECLIDIN/VILANTER 100-62.5-25 MCG ELLIPTA 1 PUFF INHALATION (07:51)
[2022-11-10 08:43] LABS: Glucose Point of Care 55 mg/dl (65-105)
[2022-11-10] MEDS: GLUCOSE ORAL GEL 15 GM OF GLUCSE IN 37.5 GM TUBE PO (08:49)
[2022-11-10] MEDS: hydrOXYzine HCL 10 MG TABLET PO (09:08)
[2022-11-10] MEDS: ASPIRIN 81 MG ENTERIC TABLET PO (09:09)
[2022-11-10] MEDS: amLODIPine BESYLATE 5 MG TABLET PO (09:10)
[2022-11-10] MEDS: METOPROLOL TARTRATE 25 MG TABLET PO ×2 (09:10→20:34)
[2022-11-10] MEDS: buPROPion HCL XL (24 HR) 150 MG TABCR 300 MG PO (09:10)
[2022-11-10] MEDS: CHOLECALCIFEROL 1,000 UNITS TABLET 5000 UNITS PO (09:11)
[2022-11-10] MEDS: busPIRone HCL 10 MG TABLET PO ×2 (09:11→20:35)
[2022-11-10] MEDS: ENOXAPARIN 30 MG/0.3 ML SYRINGE SUB-Q (09:11)
[2022-11-10] MEDS: ROSUVASTATIN 10 MG TABLET 40 MG PO (09:11)
[2022-11-10] MEDS: PANTOPRAZOLE 40 MG TABLET PO ×2 (09:11→20:34)
[2022-11-10 09:12] LABS: Glucose Point of Care 88 mg/dl (65-105)
--- NOTE | 2022-11-10 09:45 | PM.IMPN ---
Progress Note: A&P Assessment and Plan (1) Acute hypokalemia: Code(s): E87.6 - Hypokalemia Status: Acute Assessment and Plan: Improved with IV hydration and oral supplements 11/08/2022 3.3 11/09 4.1 so PO supplements d/c'ed Currently K is 4.4 Continue to trend (2) Dehydration: Code(s): E86.0 - Dehydration Status: Acute Assessment and Plan: Improving with IV hydration 11/08/2022 tolerating p.o. intake 11/09 IV NS at 75 ml/hour 11/09 ordered PT/OT due to weakness and trepidation about going home Resolved (3) Acute on chronic kidney failure: Qualifiers: Acute renal failure type: unspecified Chronic kidney disease stage: stage 4 (severe) Qualified Code(s): N17.9 - Acute kidney failure, unspecified; N18.4 - Chronic kidney disease, stage 4 (severe) Code(s): N17.9 - Acute kidney failure, unspecified; N18.9 - Chronic kidney disease, unspecified Status: Acute Assessment and Plan: Creatinine 3.0 admission 11/07/2022 11/08/2022 2.6 11/09/2022 2.0 (baseline 1.8-2.0) Continued IV hydration and f/u lab Resolved Current creatinine is 1.70 (4) Metastatic breast cancer: Code(s): C50.919 - Malignant neoplasm of unspecified site of unspecified female breast Status: Acute Assessment and Plan: Follows with Oncology Last dose of her 3rd triad chemotherapy 10/31/2022, stopped by oncologist due to side effects 11/08/2022 she expressed interest in comfort care only. (5) Type 2 diabetes mellitus: Qualifiers: Diabetes mellitus supervisor intermediates insulin use: with supervisor intermediates use Diabetes mellitus complication status: without complication Qualified Code(s): E11.9 - Type 2 diabetes mellitus without complications; Z79.4 - MCC (current) use of insulin Code(s): E11.9 - Type 2 diabetes mellitus without complications Status: Acute Assessment and Plan: Continue current regimen A1c 7.1% 11/08/2022 fasting blood sugar 56, pre lunch 231, 11/09 FBS 126 Glucose 55 this am Continue home Lantus at 40 units Continue to trend (6) Chronic obstructive pulmonary disease: Qualifiers: COPD type: unspecified COPD Qualified Code(s): J44.9 - Chronic obstructive pulmonary disease, unspecified Code(s): J44.9 - Chronic obstructive pulmonary disease, unspecified Status: Acute Assessment and Plan: Clinically stable (7) Nonerosive esophageal reflux disease: Code(s): K21.9 - Gastro-esophageal reflux disease without esophagitis Status: Acute Assessment and Plan: Clinically stable (8) MGUS (monoclonal gammopathy of unknown significance): Code(s): D47.2 - Monoclonal gammopathy Status: Acute Assessment and Plan: Follows with Oncology (9) RLS (restless legs syndrome): Code(s): G25.81 - Restless legs syndrome Status: Acute Assessment and Plan: Controlled Time Spent With Patient Time: 48 minutes Time with patient: Greater than 35 minutes Subjective Date/time seen: 11/10/22 0945 Interval history: patient is lying in bed stating that she is extremely cold. Patient stated that her fingers were Blue. She was also for any anxious as she was noted to have a blood sugar was low as well. Currently she feels okay oxygen has been weaned off she denies any current chest pain, shortness a breath, nausea, vomiting, diarrhea or constipation. Will watch her for 1 more day with the hypoglycemia as everything else seems to be Corrected. Review of Systems Review of Systems: All systems reviewed & are unremarkable except as noted in HPI and below Exam Narrative: General: well-nourished, well-appearing 72-year-old female, laying in bed, comfortable, NARD Neuro: awake, alert and oriented x4, speech clear, no focal neuro deficits noted HEENMT: normocephalic, atraumatic, EOMI, sclerae anicteric, moist ora
--- NOTE | 2022-11-10 09:45 | P.PNIM_ITS ---
Progress Note: A&P Assessment and Plan (1) Acute hypokalemia: Code(s): E87.6 - Hypokalemia Status: Acute Assessment and Plan: * Improved with IV hydration and oral supplements * 11/08/2022 3.3 * 11/09 4.1 so PO supplements d/c'ed * Currently K is 4.4 * Continue to trend (2) Dehydration: Code(s): E86.0 - Dehydration Status: Acute Assessment and Plan: * Improving with IV hydration * 11/08/2022 tolerating p.o. intake * 11/09 IV NS at 75 ml/hour * 11/09 ordered PT/OT due to weakness and trepidation about going home * Resolved (3) Acute on chronic kidney failure: Qualifiers: Acute renal failure type: unspecified Chronic kidney disease stage: stage 4 (severe) Qualified Code(s): N17.9 - Acute kidney failure, unspecified; N18.4 - Chronic kidney disease, stage 4 (severe) Code(s): N17.9 - Acute kidney failure, unspecified; N18.9 - Chronic kidney disease, unspecified Status: Acute Assessment and Plan: * Creatinine 3.0 admission 11/07/2022 * 11/08/2022 2.6 * 11/09/2022 2.0 (baseline 1.8-2.0) * Continued IV hydration and f/u lab * Resolved * Current creatinine is 1.70 (4) Metastatic breast cancer: Code(s): C50.919 - Malignant neoplasm of unspecified site of unspecified female breast Status: Acute Assessment and Plan: * Follows with Oncology * Last dose of her 3rd triad chemotherapy 10/31/2022, stopped by oncologist due to side effects * 11/08/2022 she expressed interest in comfort care only. (5) Type 2 diabetes mellitus: Qualifiers: Diabetes mellitus intermediate insulin use: with terminal block assembler use Diabetes m ellitus complication status: without complication Qualified Code(s): E11.9 - Type 2 diabetes mellitus without complications; Z79.4 - termite helper (current) use of insulin Code(s): E11.9 - Type 2 diabetes mellitus without complications Status: Acute Assessment and Plan: * Continue current regimen * A1c 7.1% * 11/08/2022 fasting blood sugar 56, pre lunch 231, 11/09 FBS 126 * Glucose 55 this am * Continue home Lantus at 40 units * Continue to trend (6) Chronic obstructive pulmonary disease: Qualifiers: COPD type: unspecified COPD Qualified Code(s): J44.9 - Chronic obstructive pulmonary disease, unspecified Code(s): J44.9 - Chronic obstructive pulmonary disease, unspecified Status: Acute Assessment and Plan: * Clinically stable (7) Nonerosive esophageal reflux disease: Code(s): K21.9 - Gastro-esophageal reflux disease without esophagitis Status: Acute Assessment and Plan: * Clinically stable (8) MGUS (monoclonal gammopathy of unknown significance): Code(s): D47.2 - Monoclonal gammopathy Status: Acute Assessment and Plan: * Follows with Oncology (9) RLS (restless legs syndrome): Code(s): G25.81 - Restless legs syndrome Status: Acute Assessment and Plan: * Controlled Time Spent With Patient Time: 48 minutes Time with patient: Greater than 35 minutes Subjective Date/time seen: 11/10/22 0945 Interval history: patient is lying in bed stating that she is extremely cold. Patient stated that her fingers were Blue. She was also for any anxious as she was noted to have a blood sugar was low as well. Currently she feels okay oxygen has been weaned off she denies any current chest pain, shortness a breath, na
--- NOTE | 2022-11-10 11:21 | PCPTNOTE ---
On 11/10/22, the student, [Alejandra Piper], provided care and completed [facility] hospital documentation on this patient. I have reviewed the student's documentation and agree with the findings.
[2022-11-10 12:28] LABS: Glucose Point of Care 178 mg/dl (65-105)
[2022-11-10] MEDS: HYDROcodone/acetaminophen (*CRX) 5-325 MG TABLET 1 TAB PO (13:23)
[2022-11-10 17:16] LABS: Glucose Point of Care 177 mg/dl (65-105)
[2022-11-10] MEDS: SERTRALINE HCL 50 MG TABLET PO (20:34)
[2022-11-10] MEDS: INSULIN GLARGINE (*BKC) 100 UNITS/ML 40 UNITS SUB-Q (20:39)
[2022-11-10 21:07] LABS: Glucose Point of Care 240 mg/dl (65-105)
[2022-11-10] MEDS: traZODone HCL 50 MG TABLET PO (22:22)
[2022-11-11 06:00] VITALS: BP 154/69; PULSE 83; RESP 18; TEMP 36.2; O2SAT 96
[2022-11-11 08:15] LABS: Glucose Point of Care 90 mg/dl (65-105)
[2022-11-11] MEDS: FLUTICASONE/UMECLIDIN/VILANTER 100-62.5-25 MCG ELLIPTA 1 PUFF INHALATION (08:49)
[2022-11-11 08:50] VITALS: O2SAT 91
[2022-11-11] MEDS: ASPIRIN 81 MG ENTERIC TABLET PO (08:55)
[2022-11-11] MEDS: PANTOPRAZOLE 40 MG TABLET PO (08:55)
[2022-11-11] MEDS: CHOLECALCIFEROL 1,000 UNITS TABLET 5000 UNITS PO (08:55)
[2022-11-11] MEDS: amLODIPine BESYLATE 5 MG TABLET PO (08:55)
[2022-11-11] MEDS: buPROPion HCL XL (24 HR) 150 MG TABCR 300 MG PO (08:55)
[2022-11-11] MEDS: ROSUVASTATIN 10 MG TABLET 40 MG PO (08:55)
[2022-11-11] MEDS: busPIRone HCL 10 MG TABLET PO (08:55)
[2022-11-11 08:56] VITALS: PULSE 67
[2022-11-11] MEDS: ENOXAPARIN 30 MG/0.3 ML SYRINGE SUB-Q (08:56)
[2022-11-11] MEDS: METOPROLOL TARTRATE 25 MG TABLET PO (08:56)
--- NOTE | 2022-11-11 09:15 | PM.DS ---
DS: Admitting Diagnosis Discharge Date 11/11/2215 Admitting Diagnosis Hypokalemia, hypoglycemia, Acute on chronic renal failure DS: Discharge Diagnosis Discharge Diagnosis (1) Acute hypokalemia: Code(s): E87.6 - Hypokalemia Status: Acute Assessment and Plan: Improved with IV hydration and oral supplements 11/08/2022 3.3 11/09 4.1 so PO supplements d/c'ed Currently K is 4.4 Continue to trend (2) Dehydration: Code(s): E86.0 - Dehydration Status: Acute Assessment and Plan: Improving with IV hydration 11/08/2022 tolerating p.o. intake 11/09 IV NS at 75 ml/hour 11/09 ordered PT/OT due to weakness and trepidation about going home Resolved (3) Acute on chronic kidney failure: Qualifiers: Acute renal failure type: unspecified Chronic kidney disease stage: stage 4 (severe) Qualified Code(s): N17.9 - Acute kidney failure, unspecified; N18.4 - Chronic kidney disease, stage 4 (severe) Code(s): N17.9 - Acute kidney failure, unspecified; N18.9 - Chronic kidney disease, unspecified Status: Acute Assessment and Plan: Creatinine 3.0 admission 11/07/2022 11/08/2022 2.6 11/09/2022 2.0 (baseline 1.8-2.0) Continued IV hydration and f/u lab Resolved Current creatinine is 1.70 (4) Metastatic breast cancer: Code(s): C50.919 - Malignant neoplasm of unspecified site of unspecified female breast Status: Acute Assessment and Plan: Follows with Oncology Last dose of her 3rd triad chemotherapy 10/31/2022, stopped by oncologist due to side effects 11/08/2022 she expressed interest in comfort care only. (5) Type 2 diabetes mellitus: Qualifiers: Diabetes mellitus complication status: without complication Diabetes mellitus long distance billing operator insulin use: with long distance billing operator use Qualified Code(s): E11.9 - Type 2 diabetes mellitus without complications; Z79.4 - termite renewal inspector (current) use of insulin Code(s): E11.9 - Type 2 diabetes mellitus without complications Status: Acute Assessment and Plan: Continue current regimen A1c 7.1% 11/08/2022 fasting blood sugar 56, pre lunch 231, 11/09 FBS 126 Glucose 55 this am Continue home Lantus at 40 units Continue to trend (6) Chronic obstructive pulmonary disease: Qualifiers: COPD type: unspecified COPD Qualified Code(s): J44.9 - Chronic obstructive pulmonary disease, unspecified Code(s): J44.9 - Chronic obstructive pulmonary disease, unspecified Status: Acute Assessment and Plan: Clinically stable (7) Nonerosive esophageal reflux disease: Code(s): K21.9 - Gastro-esophageal reflux disease without esophagitis Status: Acute Assessment and Plan: Clinically stable (8) MGUS (monoclonal gammopathy of unknown significance): Code(s): D47.2 - Monoclonal gammopathy Status: Acute Assessment and Plan: Follows with Oncology (9) RLS (restless legs syndrome): Code(s): G25.81 - Restless legs syndrome Status: Acute Assessment and Plan: Controlled DS: Summary Hospital Course Hospital Course: This is a pleasant 72-year-old female with metastatic breast cancer, GERD, hiatal hernia, hypertension, insulin-dependent diabetes, COPD, chronic kidney disease, and other comorbidities who presented to the emergency department via private vehicle for evaluation of nausea, dry heaves, and weakness. Upon arrival her potassium was noted to be 2.7 and her BUN and creatinine were 33/3.00. Patient was started on IV fluids and was given potassium supplementation. Currently potassium stable at 4.4 and BUN creatinine are also stable at 1.7 as of 11/10/2022. Patient did have a couple episodes of hypoglycemia with a blood sugar noted to be in the 50s. It was noted that the patient confirmed the wrong medication which has been corrected. Patient's blood sugar this morning was 90.
--- NOTE | 2022-11-11 09:15 | P.DS_ITS ---
DS: Admitting Diagnosis Discharge Date 11/11/22914 Admitting Diagnosis Hypokalemia, hypoglycemia, Acute on chronic renal failure DS: Discharge Diagnosis Discharge Diagnosis (1) Acute hypokalemia: Code(s): E87.6 - Hypokalemia Status: Acute Assessment and Plan: * Improved with IV hydration and oral supplements * 11/08/2022 3.3 * 11/09 4.1 so PO supplements d/c'ed * Currently K is 4.4 * Continue to trend (2) Dehydration: Code(s): E86.0 - Dehydration Status: Acute Assessment and Plan: * Improving with IV hydration * 11/08/2022 tolerating p.o. intake * 11/09 IV NS at 75 ml/hour * 11/09 ordered PT/OT due to weakness and trepidation about going home * Resolved (3) Acute on chronic kidney failure: Qualifiers: Acute renal failure type: unspecified Chronic kidney disease stage: stage 4 (severe) Qualified Code(s): N17.9 - Acute kidney failure, unspecified; N18.4 - Chronic kidney disease, stage 4 (severe) Code(s): N17.9 - Acute kidney failure, unspecified; N18.9 - Chronic kidney disease, unspecified Status: Acute Assessment and Plan: * Creatinine 3.0 admission 11/07/2022 * 11/08/2022 2.6 * 11/09/2022 2.0 (baseline 1.8-2.0) * Continued IV hydration and f/u lab * Resolved * Current creatinine is 1.70 (4) Metastatic breast cancer: Code(s): C50.919 - Malignant neoplasm of unspecified site of unspecified female breast Status: Acute Assessment and Plan: * Follows with Oncology * Last dose of her 3rd triad chemotherapy 10/31/2022, stopped by oncologist due to side effects * 11/08/2022 she expressed interest in comfort care only. (5) Type 2 diabetes mellitus: Qualifiers: Diabetes mellitus complication status: without complication Diabetes mellitus mcfp insulin use: with mcfp use Qualified Code(s): E11.9 - Type 2 diabetes mellitus without complications; Z79.4 - supervisor intermediates (current) use of insulin Code(s): E11.9 - Type 2 diabetes mellitus without complications Status: Acute Assessment and Plan: * Continue current regimen * A1c 7.1% * 11/08/2022 fasting blood sugar 56, pre lunch 231, 11/09 FBS 126 * Glucose 55 this am * Continue home Lantus at 40 units * Continue to trend (6) Chronic obstructive pulmonary disease: Qualifiers: COPD type: unspecified COPD Qualified Code(s): J44.9 - Chronic obstructive pulmonary disease, unspecified Code(s): J44.9 - Chronic obstructive pulmonary disease, unspecified Status: Acute Assessment and Plan: * Clinically stable (7) Nonerosive esophageal reflux disease: Code(s): K21.9 - Gastro-esophageal reflux disease without esophagitis Status: Acute Assessment and Plan: * Clinically stable (8) MGUS (monoclonal gammopathy of unknown significance): Code(s): D47.2 - Monoclonal gammopathy Status: Acute Assessment and Plan: * Follows with Oncology (9) RLS (restless legs syndrome): Code(s): G25.81 - Restless legs syndrome Status: Acute Assessment and Plan: * Controlled DS: Summary Hospital Course Hospital Course: This is a pleasant 72-year-old female with metastatic breast cancer, GERD, hiatal hernia, hypertension, insulin-dependent diabetes, COPD, chronic kidney disease, and other comorbidities who presented to the emergency department via private vehicle for evaluation of
[2022-11-11 12:07] LABS: Glucose Point of Care 139 mg/dl (65-105)
== END 2022-11-11 12:45 | disposition home or self-care (01) ==
LOC: ANHED 15:10 → ANH3MED 17:16
PROVIDERS: Emergency Medicine; Internal Medicine; Physician Assistant; Admitting Provider Internal Medicine; Emergency Provider Emergency Medicine; PCP Family Medicine; Visit Provider Internal Medicine
DX: E87.6 Hypokalemia (principal); E86.0 Dehydration; E11.22 Type 2 diabetes mellitus with diabetic chronic kidney disease; I12.9 Hypertensive chronic kidney disease with stage 1 through stage 4 chronic kidney disease, or unspecified chronic kidney disease; N18.4 Chronic kidney disease, stage 4 (severe); N17.9 Acute kidney failure, unspecified; J44.9 Chronic obstructive pulmonary disease, unspecified; K21.9 Gastro-esophageal reflux disease without esophagitis; D47.2 Monoclonal gammopathy; G25.81 Restless legs syndrome; C50.919 Malignant neoplasm of unspecified site of unspecified female breast; R11.2 Nausea with vomiting, unspecified; F41.9 Anxiety disorder, unspecified; E78.2 Mixed hyperlipidemia; I44.0 Atrioventricular block, first degree; I45.4 Nonspecific intraventricular block; G47.33 Obstructive sleep apnea (adult) (pediatric); F10.90 Alcohol use, unspecified, uncomplicated; Z87.891 Personal history of nicotine dependence; Z79.4 Long term (current) use of insulin; Z79.891 Long term (current) use of opiate analgesic; Z79.899 Other long term (current) drug therapy; Z80.3 Family history of malignant neoplasm of breast; Z82.49 Family history of ischemic heart disease and other diseases of the circulatory system
CPT/HCPCS: 36415; 74176; 80048; 80053; 80069; 81001; 82550; 82948; 83036; 83690; 83735; 85025; 85027; 85055; 85380; 93005; 94640; 96361; 96374; 96376; 97161; 97165; 99285; A9270; G0378; J1650; J1815; J2405; J3480; J7030; J7040

== ENCOUNTER 2022-11-18 17:55 | Emergency (ER) | payer OTHER, SELFPAY ==
--- NOTE | ~2022-11-18 | CT_ITS ---
EXAMINATION: CT IAC/mastoids BI wo con DATE: 11/18/2022 22:32 INDICATION: Right ear pain. Right jaw pain. TECHNIQUE: Computed tomography (CT) of the temporal bones was performed without intravenous contrast. Automated exposure control and iterative reconstruction technique were employed. The dose-length pro duct was 223.56 mGy-cm. COMPARISON: None FINDINGS: RIGHT TEMPORAL BONE: No right temporal bone fracture. No significant mastoid effusion. No osseous erosion. Moderate degene rative change at the TMJ. Normal internal auditory canal, ossicles, tympanic membrane and external au ditory canal, save for the presence of cerumen in the external canal. Normal vestibular aqueduct, ves tibule, cochlea, and semicircular canals. Atherosclerotic calcifications in the right carotid. The ju gular bulb is prominent with respect to the left, with no dehiscence. No middle ear fluid or mass. LEFT TEMPORAL BONE: No left temporal bone fracture. No significant mastoid effusion. No osseous erosion. Mild degenerativ e change at the TMJ. Normal internal auditory canal, ossicles, tympanic membrane and qa auditor y canal. Normal vestibular aqueduct, vestibule, cochlea, and semicircular canals. Atherosclerotic miya cifications in the left carotid. No middle ear fluid or mass. IMPRESSION: 1. Moderate right TMJ osteoarthritis. 2. Cerumen in the right external auditory canal. Reviewed, dictated and finalized at location K.
--- NOTE | ~2022-11-18 | CT_ITS ---
EXAMINATION: CT facial bones wo con DATE: 11/18/2022 22:24 INDICATION: RIGHT JAW PAIN . TECHNIQUE: Computed tomography (CT) of the facial bones and maxillofacial region was performed withou t intravenous contrast. Automated exposure control and iterative reconstruction technique were employ ed. The dose-length product was 283.62 mGy-cm. COMPARISON: None. FINDINGS: Soft Tissues: No significant superficial soft tissue swelling. Facial bones: No acute fracture. No lytic or blastic process. Eyes: The globes are intact. The soft tissue planes of the orbits are maintained. Paranasal Sinuses: Retention cyst or polyp in the left maxillary sinus. The remaining visualized aer ated spaces are clear. Foreign Bodies: No radiopaque foreign bodies. Other Findings: None. IMPRESSION: No evidence of acute facial bone fracture. Reviewed, dictated and finalized at location K.
[2022-11-18 18:05] VITALS: BP 151/71; PULSE 77; RESP 18; TEMP 36; O2SAT 99
--- NOTE | 2022-11-18 21:03 | ECG_ITS ---
Measurements Intervals [place] Rate: 75 P: 29 WI: 193 QRS: -41 QRSD: 130 T: 74 QT: 409 QTc: 459 Interpretive Statements SINUS RHYTHM LEFT AXIS DEVIATION [QRS AXIS < -30] LEFT VENTRICULAR HYPERTROPHY AND ST-T CHANGE [VOLTAGE CRITERIA PLUS ST/T ABNORMALITY] COMPARED TO ECG 11/08/2022 02:17:18 NO SIGNIFICANT CHANGES Electronically Signed On 11-19-2022 14:13:10 CDT by Mac Harris M.D.
--- NOTE | 2022-11-18 21:03 | ED.GENADULT ---
HPI - General Adult General Chief complaint: Unspecified Stated complaint: right ear and jaw pain Time Seen by Provider: 11/18/22 21:01 Source: patient Mode of arrival: ambulatory Limitations: no limitations History of Present Illness HPI narrative: Patient is a 72-year-old female with a history of hypertension, hyperlipidemia, insulin-dependent diabetes, presenting to the emergency department for evaluation of right ear and right jaw pain. Patient reports worsening right ear and jaw pain over the past 12 hours. Patient reports a sore feeling in the right jaw which worsens with movement. She reports difficulty opening her mouth secondary to this. Patient has dentures of the upper palate, only 7 teeth present in the lower palate. She reports no sore throat, no shortness of breath. She reports mild right-sided neck pain. She denies any discharge from the ear. She denies any pain behind the ear. Patient has been taking hydrocodone without improvement in her symptoms. She denies fever, chills, nausea or vomiting. No chest pain, palpitations, upper extremity pain. Patient denies abdominal pain. She denies injury, trauma to this area. She denies facial swelling or redness. No facial numbness Related Data Home Medications Medication Instructions Recorded Confirmed trazodone 50 mg tablet 50 mg PO QHS PRN insomnia 02/04/22 11/07/22 bupropion HCl 300 mg 24 hr tablet, 300 mg PO DAILY 05/25/22 11/07/22 extended release sertraline 25 mg tablet (Zoloft) 50 mg PO HS 05/25/22 11/08/22 trazodone 100 mg tablet 100 mg PO HS 05/25/22 11/07/22 hydrocodone 5 mg-acetaminophen 325 1 tablet PO Q4H PRN Pain 05/26/22 11/07/22 mg tablet amlodipine 10 mg tablet 5 mg PO DAILY 11/07/22 11/07/22 hydroxyzine HCl 10 mg tablet 10 mg PO DAILY PRN anxiety 11/07/22 11/07/22 linagliptin 5 mg tablet (Tradjenta) 5 mg PO DAILY 11/07/22 11/07/22 tramadol 50 mg tablet 50 mg PO TID PRN Pain 11/07/22 11/07/22 zolpidem 6.25 mg tablet,extended 6.25 mg PO HS PRN Insomnia 11/07/22 11/07/22 release,multiphase Allergies Allergy/AdvReac Type Severity Reaction Status Date / Time prochlorperazine Allergy Intermediate LOCK JAW Verified 11/07/22 13:14 Review of Systems Review of Systems: CONSTITUTIONAL: Denies fever, chills, or sweats. EYES: Denies visual changes, redness, or discharge. ENT: Denies rhinorrhea, congestion, sore throat, reports right ear pain, reports right jaw pain CARDIOVASCULAR: Denies chest pain, palpitations, or edema. RESPIRATORY: Denies cough or dyspnea. GASTROINTESTINAL: Denies abdominal pain, nausea, vomiting, or diarrhea. GENITOURINARY: Denies dysuria or hematuria. SKIN: Denies rash or itching. MUSCULOSKELETAL: Denies back pain, joint pain, or myalgia. NEUROLOGIC: Denies headache, numbness, or weakness. [facility], [facility] Past Medical History Medical History (Updated 11/18/22 @ 23:45 by Fauzia Guerin MD) Chronic obstructive pulmonary disease HSV-1 (herpes simplex virus 1) infection Hypertension Insulin dependent diabetes mellitus Metastatic breast cancer Mixed hyperlipidemia Monoclonal gammopathy of undetermined significance Nonerosive esophageal reflux disease Obstructive sleep apnea Otitis media Stage 4 chronic kidney disease Surgical History Surgical History History of bilateral mastectomy History of tonsillectomy Family History Family History Mother Family history of malignant neoplasm of breast in first degree relative Other Family history of cardiovascular disease Family history of malignant neoplasm Hypertension Social History Social History Social History: Surrogate medical decision maker: Sanna Newell, daughter. Code status: Full code. Smoking packs per day: 1 Smoking cigarettes per day: 20.0 Years smoked: 20 Smoking pack-years: 20.00 Smok
[2022-11-18] MEDS: oxyCODONE HCL (*CRX) 5 MG TAB IR PO (21:42)
[2022-11-18] MEDS: ACETAMINOPHEN 500 MG TABLET 1000 MG PO (21:42)
--- NOTE | 2022-11-18 22:06 | PC.NURSE ---
This RN, Antonella KERN, and Rm RN attempted to draw blood on pt without success. Phlebotomy called to come draw.
--- NOTE | 2022-11-19 | PC.NURSE ---
Dr. Guerin unable to obtain blood using ultrasound machine. Pt refused blood draw from phlebotomy. Pt called her daughter to come and pick her up. Explained to pt that because Dr. Guerin wants her to remain in ED to get her labs drawn and wait for results, pt will need to sign herself out against medical advice. Pt verbalized understanding and signed AMA form.
[2022-11-19 00:02] VITALS: BP 131/66; PULSE 88; RESP 20; O2SAT 99
== END 2022-11-19 00:04 | disposition left against medical advice (07) ==
PROVIDERS: Emergency Provider Emergency Medicine; PCP Family Medicine
DX: M26.641 Arthritis of right temporomandibular joint (principal); H66.91 Otitis media, unspecified, right ear; J44.9 Chronic obstructive pulmonary disease, unspecified; E11.22 Type 2 diabetes mellitus with diabetic chronic kidney disease; I12.9 Hypertensive chronic kidney disease with stage 1 through stage 4 chronic kidney disease, or unspecified chronic kidney disease; N18.4 Chronic kidney disease, stage 4 (severe); E78.2 Mixed hyperlipidemia; G47.33 Obstructive sleep apnea (adult) (pediatric); Z85.3 Personal history of malignant neoplasm of breast; Z87.891 Personal history of nicotine dependence; Z90.13 Acquired absence of bilateral breasts and nipples; Z79.82 Long term (current) use of aspirin; Z79.4 Long term (current) use of insulin; Z79.84 Long term (current) use of oral hypoglycemic drugs; I51.7 Cardiomegaly
CPT/HCPCS: 70480; 70486; 93005; 99284; A9270

== ENCOUNTER 2022-12-08 14:53 | Outpatient (CLI) | payer OTHER, SELFPAY ==
[2022-12-08 16:16] LABS: Alanine Aminotransferase 19 U/L (6-35); Albumin Level 4.3 g/dL (3.5-5.1); Alkaline Phosphatase 83 U/L (38-126); Anion Gap 9 mmol/L (8-16); Aspartate Amino Transferase 26 U/L (14-36); Bilirubin,Total 0.5 mg/dL (0.2-1.3); Blood Urea Nitrogen 25 mg/dL (7-17); Calcium 9.2 mg/dL (8.4-10.2); Carbon Dioxide 23 mmol/L (22-30); Chloride 98 mmol/L (98-107); Estimated Glomerular Filt Rate 24; Glucose 161 mg/dL (65-110); Potassium 3.7 mmol/L (3.4-5.0); Sodium 130 mmol/L (137-145)
[2022-12-08 16:39] LABS: Hemoglobin A1C 6.5 % (<5.7)
== END 2022-12-08 14:54 | disposition home or self-care (01) ==
LOC: ANHLAB 14:54
PROVIDERS: PCP Family Medicine; Visit Provider Family Medicine
DX: E11.9 Type 2 diabetes mellitus without complications (principal)
CPT/HCPCS: 36415; 80053; 83036

== ENCOUNTER 2023-03-06 12:52 | Outpatient (CLI) | payer MEDICARE, SELFPAY ==
--- NOTE | ~2023-03-06 | CT_ITS ---
Clinical Indication: Breast cancer CT Scan of the Chest, Abdomen, and Pelvis without Contrast: Technique: Contiguous sections were acquired throughout the chest, abdomen, and pelvis without intrav enous contrast administration. Dose reduction technique was used on this scan by utilizing automated exposure control and iterative reconstruction technique. The dose-length product (DLP) was 742.20 mGy -cm. COMPARISON: 11/11/2022, 08/29/2022 Findings: Right-sided Mediport in place. There is no evidence of any significant mediastinal, hilar or axillary lymphadenopathy. Small pericar dial effusion is present. Large hiatal hernia is present. No aortic aneurysm. There are atherosclerot ic calcifications of the aorta and coronary arteries Small left pleural effusion present. No right pleural effusion. The lungs are clear. No pulmonary nodules or infiltrates are noted. Innumerable hypodense hepatic lesions are probably increased in size/extent as compared to prior exam consistent with interval progression of metastatic disease. 2 liver cysts are unchanged. The spleen, pancreas, gallbladder, adrenals and kidneys are within normal limits. There are atherosclerotic calc ifications of the aorta. No lymphadenopathy. No bowel obstruction or bowel wall thickening. Sigmoid diverticulosis noted. Urinary bladder is unremarkable. No adnexal mass seen. No ascites. Sclerotic osseous lesions are similar to prior exam, consistent with osseous metastatic disease. Impression: Interval progression of extensive hepatic metastatic disease. Hepatic lesions are increased in size/e xtent from prior exam. Osseous metastatic disease is similar in appearance to prior exam. Large hiatal hernia. Small pericardial effusion and small left pleural effusion. Reviewed, dictated and finalized at [facility]. Impression: Interval progression of extensive hepatic metastatic disease. Hepatic lesions a re increased in size/extent from prior exam. Osseous metastatic disease is similar in appearance to prior exam. Large hiatal hernia. Small pericardial effusion and small left pleural effusion.
== END 2023-03-06 12:53 | disposition home or self-care (01) ==
LOC: ANHIMG 12:59
PROVIDERS: PCP Family Medicine; Visit Provider Internal Medicine Medical Oncology
DX: C50.919 Malignant neoplasm of unspecified site of unspecified female breast (principal); K44.9 Diaphragmatic hernia without obstruction or gangrene; I31.39 Other pericardial effusion (noninflammatory); J90 Pleural effusion, not elsewhere classified; C78.7 Secondary malignant neoplasm of liver and intrahepatic bile duct
CPT/HCPCS: 71250; 74176

== ENCOUNTER 2023-04-01 15:23 | Inpatient (IN) | payer MEDICARE, MEDICAID, SELFPAY ==
[2023-04-01] VITALS (13 sets, daily range): BP systolic 126–157; BP diastolic 65–87; PULSE 62–88; RESP 13–22; TEMP 36.4; O2SAT 96–100; BMI 29.7
--- NOTE | ~2023-04-01 | XR_ITS ---
XR chest 1V portable 04/01/2023 15:52 Indication: Shortness of breath Procedure: AP portable chest Comparison: 05/24/2022 Findings: Cardiomegaly. Retrocardiac opacification. Left pleural effusion. Portacatheter tip in the S VC. No acute osseous abnormality. No edema or pneumothorax. Impression: 1: Retrocardiac opacification may represent atelectasis or pneumonia. 2: Small left pleural effusion. Reviewed, dictated and finalized at location B. Impression: 1: Retrocardiac opacification may represent atelectasis or pneumonia. 2: Small left pleural effusion.
--- NOTE | 2023-04-01 15:31 | ECG_ITS ---
Measurements Intervals [place] Rate: 73 P: 16 [place]: 184 QRS: -35 QRSD: 123 T: 136 QT: 388 QTc: 430 Interpretive Statements SINUS RHYTHM LEFT AXIS DEVIATION INTRAVENTRICULAR CONDUCTION DELAY BORDERLINE R WAVE PROGRESSION, ANTERIOR LEADS LEFT VENTRICULAR HYPERTROPHY AND ST-T CHANGE BASELINE ARTIFACT- I, III, AVL, AVF BORDERLINE ECG COMPARED TO ECG 11/18/2022 21:26:16 NO SIGNIFICANT CHANGES Electronically Signed On 04-01-2023 16:07:10 CDT by Peterson Aguilar D.O.
[2023-04-01 15:45] LABS: Basophils Absolute Auto 0.1 K/mm3 (0.0-0.1); Basophils Percent Auto 1.1 % (0.2-1.2); Eosinophils Absolute Auto 0.2 K/mm3 (0-0.3); Hematocrit 40.8 % (37.0-47.0); Hemoglobin 12.4 g/dL (12.0-15.0); Immature Granulocyte Absolute 0.02 K/mm3 (0.00-0.031); Immature Granulocyte Percent A 0.3 % (0-0.5); Lymphocytes Absolute Auto 0.66 K/mm3 (0.9-3.2); Mean Corpuscular HGB Conc 30.4 g/dl (32-36); Mean Corpuscular Hemoglobin 29.6 pg (26-34); Mean Corpuscular Volume 97.4 fl (80-100); Mean Platelet Volume 9.3 fl (7.4-10.4); Monocytes Absolute Auto 0.4 K/mm3 (0.1-0.6); Monocytes Percent Auto 6.7 % (2.6-8.5); Neutrophils Absolute Auto 5.2 K/mm3 (1.3-6.7); Neutrophils Percent Auto 78.9 % (45.5-73.1); Platelet Count Result 159 k/mm3 (150-375); Red Blood Count 4.19 M/mm3 (4.2-5.4); Red Cell Distribution Width 15.4 % (11.5-14.5); White Blood Count 6.6 K/mm3 (4.5-10.0)
--- NOTE | 2023-04-01 15:53 | ED.SOB ---
HPI - SOB/Dyspnea General Chief Complaint: Shortness of Breath/Dyspnea Stated Complaint: DYSPNEA History of Present Illness HPI Narrative: This is a 73-year-old female, with history of breast cancer, COPD and CHF with EF of 35% as of November of this year, brought in by EMS for hypoxia and dyspnea. The patient states she has been progressively short of breath over the past several days with today being the worst. She denies fevers, chills, lower extremity swelling or chest pain Related Data Home Medications Medication Instructions Recorded Confirmed trazodone 50 mg tablet 50 mg PO QHS PRN insomnia 02/04/22 12/08/22 bupropion HCl 300 mg 24 hr tablet, 300 mg PO DAILY 05/25/22 12/08/22 extended release sertraline 25 mg tablet (Zoloft) 50 mg PO HS 05/25/22 12/08/22 trazodone 100 mg tablet 100 mg PO HS 05/25/22 12/08/22 hydrocodone 5 mg-acetaminophen 325 1 tablet PO Q4H PRN Pain 05/26/22 12/08/22 mg tablet hydroxyzine HCl 10 mg tablet 10 mg PO DAILY PRN anxiety 11/07/22 12/08/22 tramadol 50 mg tablet 50 mg PO TID PRN Pain 11/07/22 12/08/22 zolpidem 6.25 mg tablet,extended 6.25 mg PO HS PRN Insomnia 11/07/22 12/08/22 release,multiphase capecitabine 500 mg tablet PO 12/08/22 12/08/22 Allergies Allergy/AdvReac Type Severity Reaction Status Date / Time prochlorperazine Allergy Intermediate LOCK JAW Verified 04/01/23 15:32 Review of Systems Review of Systems: CONSTITUTIONAL: Denies fever, chills, or sweats. CARDIOVASCULAR: Denies chest pain, palpitations, or edema. RESPIRATORY: Dyspnea, nonbloody nonproductive cough GASTROINTESTINAL: Denies abdominal pain, nausea, vomiting, or diarrhea. GENITOURINARY: Denies dysuria or hematuria. SKIN: Denies rash or itching. MUSCULOSKELETAL: Denies back pain, joint pain, or myalgia. NEUROLOGIC: Denies headache, numbness, dizziness, or weakness. PSYCHIATRIC: Denies anxiety or depression. [facility] Past Medical History Medical History Chronic obstructive pulmonary disease HSV-1 (herpes simplex virus 1) infection Hypertension Insulin dependent diabetes mellitus Metastatic breast cancer Mixed hyperlipidemia Monoclonal gammopathy of undetermined significance Nonerosive esophageal reflux disease Obstructive sleep apnea Otitis media Stage 4 chronic kidney disease Surgical History Surgical History History of bilateral mastectomy History of tonsillectomy Family History Family History Mother Family history of malignant neoplasm of breast in first degree relative Other Family history of cardiovascular disease Family history of malignant neoplasm Hypertension Social History Social History Social History: Surrogate medical decision maker: Sanna Newell, daughter. Code status: Full code. Smoking packs per day: 1 Smoking cigarettes per day: 20.0 Years smoked: 20 Smoking pack-years: 20.00 Smoking status: Former smoker Second hand tobacco smoke exposure: No Alcohol intake: never Drinks per week: 1 Alcohol use details: Rare alcohol use in moderation. Substance use: never Substance use type: does not use Lack of Transportation: No Lack of Food: Never True Current Housing: I Have Housing Concerned About Future Housing: No Difficulty Paying Gas/Electric Bills: No Difficulty Paying for Meds: No Currently Unemployed: No Education: High School Diploma/GED Difficulty w/ Childcare or Family Care: No Living arrangements: alone Occupation/Education: retired Spiritual care concerns: No Exam Narrative: GENERAL: Well-developed, well-nourished, and in no acute distress. HEAD: Normocephalic, atraumatic. EYES: PERRLA and EOMI. ENT: Nares clear, no rhinorrhea or epistaxis. Mucous membranes moist. Oropharynx without tonsi
[2023-04-01 16:02] LABS: Alanine Aminotransferase 17 U/L (6-35); Albumin Level 3.8 g/dL (3.5-5.1); Alkaline Phosphatase 106 U/L (38-126); Anion Gap 8 mmol/L (8-16); Aspartate Amino Transferase 37 U/L (14-36); Bilirubin,Total 0.7 mg/dL (0.2-1.3); Blood Urea Nitrogen 12 mg/dL (7-17); Calcium 8.5 mg/dL (8.4-10.2); Carbon Dioxide 22 mmol/L (22-30); Chloride 106 mmol/L (98-107); Estimated Glomerular Filt Rate 29; Glucose 102 mg/dL (65-110); Potassium 4.9 mmol/L (3.4-5.0); Sodium 136 mmol/L (137-145)
[2023-04-01 16:08] LABS: NT Pro B Type Natriuretic Pept 11500 pg/mL (19.9-100); Troponin I < 0.012 ng/mL (0.000-0.034)
[2023-04-01 16:15] LABS: Partial Thromboplastin Time 29.2 SECONDS (22.3-36.8); Prothrombin Time 13.6 Seconds (11.1-14.7)
[2023-04-01 16:20] LABS: D Dimer 1.75 ug/mL (<0.48)
[2023-04-01] MEDS: IPRATROPIUM BR 0.02% INH SOLN 0.5 MG/2.5 ML VIAL INHALATION (16:37)
[2023-04-01] MEDS: ALBUTEROL SULFATE NEB 2.5 MG/3 ML INH INHALATION (16:37)
[2023-04-01] MEDS: AZITHROMYCIN 500 MG/NS 250 ML 500 MG/250 ML BAG 250 MG IVPB (19:05)
[2023-04-01 19:35] LABS: Appearance Urine Clear (Clear); Bacteria Urine None Seen /hpf; Bilirubin Urine Negative (Negative); Blood Urine Negative (Negative); Color Urine Yellow (Yellow); Glucose Urine UA Negative (Negative); Ketones Urine Negative (Negative); Leukocyte Esterase Ur Negative LEU/UL (Negative); Nitrate Urine Negative (Negative); Protein Urine 2+ mg/dL (Negative); RBC Urine 0-2 /hpf (0-2); Specific Grav Ur 1.011 (1.001-1.035); Squamous Epithelial Cell Urine None seen /hpf (Few); Urobilinogen Urine 0.2 mg/dL (<2.0); WBC Urine 0-5 /hpf; pH Urine 5.5 (5.0-9.0)
[2023-04-01 19:40] LABS: Add Urine Microscopic? YES
--- NOTE | 2023-04-01 20:29 | PM.IMHP ---
H&P: HPI History of Present Illness Date/Time: 04/01/23 20:29 Chief Complaint: Shortness of breath Narrative: This is a 73-year-old female, with history of breast cancer, COPD and CHF with EF of 35% as of November of this year, brought in by EMS for hypoxia and dyspnea.? The patient states she has been progressively short of breath over the past several days with today being the worst.? She denies fevers, chills, lower extremity swelling or chest pain. Patient was previously on furosemide but this was stopped due to worsening kidney function. She received breathing treatment, IV furosemide 40 mg, ceftriaxone 1 g on azithromycin 500 mg IV, breathing has improved significantly, she currently on 4 L of oxygen through nasal cannula and saturation is stable Review of Systems Review of Systems: All systems reviewed & are unremarkable except as noted in HPI and below PMFSH Past Medical History Medical History Chronic obstructive pulmonary disease HSV-1 (herpes simplex virus 1) infection Hypertension Insulin dependent diabetes mellitus Metastatic breast cancer Mixed hyperlipidemia Monoclonal gammopathy of undetermined significance Nonerosive esophageal reflux disease Obstructive sleep apnea Otitis media Stage 4 chronic kidney disease Surgical History Surgical History History of bilateral mastectomy History of tonsillectomy Family History Family History Mother Family history of malignant neoplasm of breast in first degree relative Other Family history of cardiovascular disease Family history of malignant neoplasm Hypertension Social History Social History Social History: Surrogate medical decision maker: Sanna Newell, daughter. Code status: Full code. Smoking packs per day: 1 Smoking cigarettes per day: 20.0 Years smoked: 25 Smoking pack-years: 25.00 Smoking status: Former smoker Second hand tobacco smoke exposure: No Alcohol intake: never Drinks per week: 1 Alcohol use details: Rare alcohol use in moderation. Substance use: never Substance use type: does not use Lack of Transportation: No Lack of Food: Never True Current Housing: I Have Housing Concerned About Future Housing: No Difficulty Paying Gas/Electric Bills: No Difficulty Paying for Meds: No Currently Unemployed: No Education: High School Diploma/GED Difficulty w/ Childcare or Family Care: No Living arrangements: alone Occupation/Education: retired Spiritual care concerns: No Meds Home Medications and Allergies Home Medications Medication Instructions Recorded Confirmed Type buspirone 10 mg tablet 10 mg PO BID #1 tablet 09/11/21 04/01/23 Rx aspirin 81 mg tablet,delayed 81 mg PO DAILY #90 tabs 10/08/21 04/01/23 Rx release cholecalciferol (vitamin D3) 125 5,000 unit PO DAILY #90 tabs 10/09/21 04/01/23 Rx mcg (5,000 unit) tablet bupropion HCl 300 mg 24 hr tablet, 300 mg PO DAILY 05/25/22 04/01/23 History extended release sertraline 25 mg tablet (Zoloft) 50 mg PO HS 05/25/22 04/01/23 History trazodone 100 mg tablet 100 mg PO HS 05/25/22 04/01/23 History hydrocodone 5 mg-acetaminophen 325 1 tablet PO Q4H PRN Pain 05/26/22 04/01/23 History mg tablet albuterol sulfate 90 mcg/actuation 1 inh inhalation Q4H PRN shortness 06/04/22 04/01/23 Rx aerosol inhaler of breath or wheezing #8.5 grams blood sugar diagnostic (Contour #100 ea 09/26/22 04/01/23 Rx Next Test Strips) metoprolol tartrate 25 mg tablet 25 mg PO BID #180 tabs 10/28/22 04/01/23 Rx hydroxyzine HCl 10 mg tablet 10 mg PO DAILY PRN anxiety 11/07/22 04/01/23 History insulin glargine U-300 conc 300 40 unit (0.1333 mL) subcut HS #6 mL 11/11/22 04/01/23 Rx unit/mL (3 mL) subcutaneous pen (Toujeo Max U-300 Solo
[2023-04-01] MEDS: FUROSEMIDE INJ 40 MG/4 ML VIAL IV PUSH (20:57)
--- NOTE | 2023-04-01 21:42 | ADMGEN ---
This patient, Shahnaz Newell, was admitted to Medical Room 349-01. Patient/family oriented to hospital policies and general routines including ID bracelet, bed and alarms, visiting hours, pain management, procedures, bathroom and other care routines, personal items, smoking policy, room service/diet, and visiting hours. Information on how to activate the Rapid Response Team has been discussed. Patient/Family are encouraged to report perceived risks to care and to ask questions if they do not understand what they are told or what they should do.
[2023-04-01] MEDS: METOPROLOL TARTRATE 25 MG TABLET PO (23:18)
[2023-04-01] MEDS: traZODone HCL 50 MG TABLET 100 MG PO (23:18)
[2023-04-01] MEDS: PANTOPRAZOLE 40 MG TABLET PO (23:18)
[2023-04-01] MEDS: SERTRALINE HCL 50 MG TABLET PO (23:18)
[2023-04-01] MEDS: busPIRone HCL 10 MG TABLET PO (23:18)
[2023-04-02] VITALS (11 sets, daily range): BP systolic 148–156; BP diastolic 55–74; PULSE 61–87; RESP 16–20; TEMP 36.1–36.6; O2SAT 97–100
[2023-04-02] MEDS: hydrOXYzine HCL 10 MG TABLET PO (00:53)
[2023-04-02 06:09] LABS: Eosinophils Absolute Auto 0.2 K/mm3 (0-0.3); Eosinophils Percent Auto 4.9 % (0-4.4); Hematocrit 34.3 % (37.0-47.0); Hemoglobin 10.5 g/dL (12.0-15.0); Immature Granulocyte Absolute 0.02 K/mm3 (0.00-0.031); Immature Granulocyte Percent A 0.5 % (0-0.5); Immature Platelet Fraction Pct 2.6 % (0.9-11.2); Lymphocytes Absolute Auto 0.68 K/mm3 (0.9-3.2); Lymphocytes Percent Auto 17.7 % (18.3-44.2); Mean Corpuscular HGB Conc 30.6 g/dl (32-36); Mean Corpuscular Hemoglobin 29.9 pg (26-34); Mean Corpuscular Volume 97.7 fl (80-100); Mean Platelet Volume 9.7 fl (7.4-10.4); Monocytes Absolute Auto 0.4 K/mm3 (0.1-0.6); Monocytes Percent Auto 10.1 % (2.6-8.5); Neutrophils Absolute Auto 2.5 K/mm3 (1.3-6.7); Neutrophils Percent Auto 65.8 % (45.5-73.1); Platelet Count Result 126 k/mm3 (150-375); Red Blood Count 3.51 M/mm3 (4.2-5.4); Red Cell Distribution Width 15.2 % (11.5-14.5); White Blood Count 3.9 K/mm3 (4.5-10.0)
[2023-04-02 06:22] LABS: Anion Gap 5 mmol/L (8-16); Blood Urea Nitrogen 13 mg/dL (7-17); Calcium 8.1 mg/dL (8.4-10.2); Carbon Dioxide 25 mmol/L (22-30); Chloride 107 mmol/L (98-107); Estimated CRCL calculation 28 ml/min; Estimated Glomerular Filt Rate 29; Glucose 91 mg/dL (65-110); Potassium 3.9 mmol/L (3.4-5.0); Sodium 137 mmol/L (137-145)
[2023-04-02] MEDS: FLUTICASONE/UMECLIDIN/VILANTER 100-62.5-25 MCG ELLIPTA 1 PUFF INHALATION (07:51)
--- NOTE | 2023-04-02 08:20 | PM.IMPN ---
Progress Note: A&P Assessment and Plan (1) Acute respiratory failure with hypoxia: Code(s): J96.01 - Acute respiratory failure with hypoxia Status: Acute Assessment and Plan: 04/02/23: (2) Pneumonia: Code(s): J18.9 - Pneumonia, unspecified organism Status: Acute Assessment and Plan: 04/02/23: CXR- revealing retrocardiac opacification representing atelectasis or pneumonia, small left pleural effusion.l Blood cultures pending Continue azithromycin, and Rocephin Will check a procalcitonin today Patient currently on 2 L nasal cannula (3) CHF exacerbation: Qualifiers: Heart failure type: systolic Qualified Code(s): I50.23 - Acute on chronic systolic (congestive) heart failure Code(s): I50.9 - Heart failure, unspecified Status: Acute Assessment and Plan: 04/02/23: Pro BNP 36042 home medications restarted. She did receive 1 time dose of 40 mg of Lasix in the ER (4) Chronic kidney disease, stage 3b: Code(s): N18.32 - Chronic kidney disease, stage 3b Status: Chronic Assessment and Plan: 04/02/23: BUN 13, Creatinine 1.70, eGFR 29 Estimated creatinine clearance 28 Continue to monitor labs. (5) Insulin dependent diabetes mellitus: Status: Chronic Assessment and Plan: 04/02/23: BG ranging 130-137 Lantus 40 units ordered Januvia 100 mg po daily restarted, however patient refusing this medication as she states she does not take that anymore. Accu checks AC and HS Hgb A1C 6.5 (6) Obesity (BMI 30.0-34.9): Code(s): E66.9 - Obesity, unspecified Status: Acute Assessment and Plan: 04/02/23: 81.1 kg, BMI 29.8 Time Spent With Patient Time with patient: Greater than 35 minutes Subjective Date/time seen: 04/02/23 08:20 Interval history: Interval history: This is a 73 year old female who presents to the hospital via EMS for hypoxia and dyspnea which has progressively worsened over the last several days. Chest x-ray revealing retrocardiac opacification representing atelectasis versus pneumonia, small left pleural effusion. ProBNP 82173 on admission. Patient was given albuterol nebulizer treatments, 40 mg IV Lasix, blood cultures were obtained, patient started on Rocephin and Azithromycin. Of note patient has history of breast cancer with a bilateral mastectomy done about 25 years ago she is a patient of Dr. Graves at [facility] in [facility]. Her most recent PET scan showed metastatic disease and she had her last treatment on Thursday. On Thursday she was given a dose of Xgeval 120 mg, and Faslodex 500 mg according to [facility]. Patient stated that she started getting short of breath and hypoxic after that. Denies any recent illness or sick contacts. 04/02/23: On examination today patient is alert oriented x4, lying in the bed. Vital signs have been stable, she is afebrile, she is down to 2 L nasal cannula. She denies any pain at this time. She states she rested overnight without any issues. Crackles noted to the bases of her lungs this morning. Patient states that she was supposed to have an echocardiogram done prior to new treatment that Dr. Graves is going to put her on as it can affect the heart however she was unable to go due to feeling unwell. We will go ahead and obtain that today. Patient does have sores in her mouth from her chemo medication. I will order her some magic mouthwash for comfort. Labs reveal WBC 3.9, RBC 3.51, Hgb 10.5, Hct 34.2, Na+ 137, Potassium 3.9, Chloride 107, BUN 13, Creatinine 1.7, eGFR 29, BG 91-102. Blood cultures pending. Will check a pro calcitonin today. Patient did state that she is leaning more towards not wanting to do any more treatment however she is planning on at least giving this new medication a chance before deciding to make herself palliative care/hospice. Review of Systems Review of Systems: All systems reviewed & are unremarkable except as noted in HP
[2023-04-02] MEDS: ASPIRIN 81 MG ENTERIC TABLET PO (08:43)
[2023-04-02] MEDS: amLODIPine BESYLATE 5 MG TABLET PO (08:43)
[2023-04-02] MEDS: ROSUVASTATIN 10 MG TABLET 40 MG PO (08:43)
[2023-04-02] MEDS: PANTOPRAZOLE 40 MG TABLET PO ×2 (08:43→21:52)
[2023-04-02] MEDS: CHOLECALCIFEROL 1,000 UNITS TABLET 5000 UNITS PO (08:43)
[2023-04-02] MEDS: buPROPion HCL XL (24 HR) 150 MG TABCR 300 MG PO (08:43)
[2023-04-02] MEDS: busPIRone HCL 10 MG TABLET PO ×2 (08:43→17:17)
[2023-04-02] MEDS: METOPROLOL TARTRATE 25 MG TABLET PO ×2 (08:47→21:52)
[2023-04-02 09:01] LABS: Glucose Point of Care 100 mg/dl (65-105)
[2023-04-02] MEDS: ENOXAPARIN 30 MG/0.3 ML SYRINGE SUB-Q (09:49)
[2023-04-02 11:58] LABS: Glucose Point of Care 172 mg/dl (65-105)
--- NOTE | 2023-04-02 12:10 | PC.NURSE ---
Patient refused admin of Januvia stating that she did not take any oral medication for her blood sugar.
[2023-04-02] MEDS: MAGNES & ALUM HYD/SIMETH/DIPHENHYD/LIDOCAINE 119 ML MOUTHWASH BY MOUTH ×2 (17:18→21:54)
[2023-04-02 17:21] LABS: Glucose Point of Care 127 mg/dl (65-105)
[2023-04-02 18:42] LABS: Procalcitonin 0.1 ng/mL
[2023-04-02] MEDS: ONDANSETRON INJ 4 MG/2 ML VIAL IV PUSH (20:16)
[2023-04-02] MEDS: SERTRALINE HCL 50 MG TABLET PO (21:52)
[2023-04-02] MEDS: traZODone HCL 50 MG TABLET 100 MG PO (21:52)
[2023-04-03] VITALS (19 sets, daily range): BP systolic 153–161; BP diastolic 54–72; PULSE 64–86; RESP 16–20; TEMP 36.1–36.7; O2SAT 86–100
--- NOTE | 2023-04-03 | ECHO_ITS ---
Patient Info Name: Shahnaz Newell Age: 73 years : 1950 Gender: Female Ht: 65 in Wt: 178 lbs BSA: 1.95 m2 HR: 66 bpm BP: 156 / 54 mmHg Heart Rhythm: Sinus Rhythm Technical Quality: Fair Exam Date: 04/03/2023 9:59 AM Exam Location: Echo Lab Patient Status: Inpatient Admit Date: 04/02/2023 Staff Ordering Physician: Ophelia West APRN Merchant Banker: Kristi Michelle RDCS Attending Provider: Cherelle May MD Referring Physician: Jenna BELL; Exam Type: CA echo doppler color flow Study Info Indications - need baseline for chemotherapy medication Complete two-dimensional, color flow and Doppler transthoracic echocardiogram is performed. Strain analysis performed. Summary 1. Complete two-dimensional, color flow and Doppler transthoracic echocardiogram is performed. 2. There is moderate sigmoid hypertrophy of the basal septum. 3. Left ventricular chamber dimension is mildly enlarged. 4. Left ventricular systolic function is severely reduced, estimated at 30-35%. 5. The left ventricular diastolic function is grade I diastolic dysfunction. 6. Global longitudinal strain is abnormal at -10 %. 7. Left atrial chamber dimension is mildly enlarged. 8. Right atrial free wall invagination consistent with elevated pericardial pressures. 9. There is moderate mitral valve regurgitation. 10. The mitral valve annulus is mildly calcified. 11. The mitral valve has thickened leaflets. 12. There is mild tricuspid valve regurgitation. 13. Mild pulmonary hypertension, estimated pulmonary arterial systolic pressure is 37 mmHg. 14. Within the pericardium there appears to be an increased echogenicity on the epicardial surface. 15. There is moderate pericardial effusion. 16. Pleural effusion also seen. Left Ventricle There is moderate sigmoid hypertrophy of the basal septum. Left ventricular chamber dimension is mildly enlarged. Left ventricular systolic function is severely reduced, estimated at 30-35%. The left ventricular diastolic function is grade I diastolic dysfunction. Global longitudinal strain is abnormal at -10 %. Right Ventricle Right ventricular chamber dimension is normal. Right ventricular systolic function is normal. Left Atria Left atrial chamber dimension is mildly enlarged. Right Atria Right atrial free wall invagination consistent with elevated pericardial pressures. Right atrial chamber dimension is normal. Atrial Septum Intact interatrial septum visualized by color flow imaging. Aortic Valve The aortic valve is trileaflet. There is mild aortic valve sclerosis. There is no aortic valve stenosis. There is trace aortic valve regurgitation. Pulmonic Valve The pulmonic valve is normal. There is no pulmonic valve stenosis. There is trace pulmonic regurgitation. Mitral Valve The mitral valve has thickened leaflets. There is no mitral valve stenosis. There is moderate mitral valve regurgitation. The mitral valve annulus is mildly calcified. Tricuspid Valve The tricuspid valve leaflets are normal. There is no significant tricuspid valve stenosis. There is mild tricuspid valve regurgitation. Mild pulmonary hypertension, estimated pulmonary arterial systolic pressure is 37 mmHg. Pericardium/Pleural Within the pericardium there appears to be an increased echogenicity on the epicardial surface. There is moderate pericardial effusion. Pleural effusion also seen. Inferior Vena Cava Normal inferior vena cava with >50% collapse upon inspiration consistent with normal right atrial pressure, 10 mmHg. Aorta The ao
[2023-04-03] MEDS: MAGNES & ALUM HYD/SIMETH/DIPHENHYD/LIDOCAINE 119 ML MOUTHWASH BY MOUTH (05:50)
[2023-04-03 06:09] LABS: Eosinophils Absolute Auto 0.2 K/mm3 (0-0.3); Eosinophils Percent Auto 4.6 % (0-4.4); Hematocrit 34.5 % (37.0-47.0); Hemoglobin 10.4 g/dL (12.0-15.0); Lymphocytes Absolute Auto 0.57 K/mm3 (0.9-3.2); Lymphocytes Percent Auto 14.6 % (18.3-44.2); Mean Corpuscular HGB Conc 30.1 g/dl (32-36); Mean Corpuscular Hemoglobin 29.5 pg (26-34); Mean Corpuscular Volume 97.7 fl (80-100); Mean Platelet Volume 9.6 fl (7.4-10.4); Monocytes Absolute Auto 0.4 K/mm3 (0.1-0.6); Monocytes Percent Auto 9.5 % (2.6-8.5); Neutrophils Absolute Auto 2.8 K/mm3 (1.3-6.7); Neutrophils Percent Auto 70.3 % (45.5-73.1); Platelet Count Result 113 k/mm3 (150-375); Red Blood Count 3.53 M/mm3 (4.2-5.4); Red Cell Distribution Width 15.1 % (11.5-14.5); White Blood Count 3.9 K/mm3 (4.5-10.0)
[2023-04-03 06:20] LABS: Alanine Aminotransferase 13 U/L (6-35); Albumin Level 3.1 g/dL (3.5-5.1); Alkaline Phosphatase 96 U/L (38-126); Anion Gap 3 mmol/L (8-16); Aspartate Amino Transferase 28 U/L (14-36); Bilirubin,Total 0.4 mg/dL (0.2-1.3); Blood Urea Nitrogen 12 mg/dL (7-17); Carbon Dioxide 24 mmol/L (22-30); Chloride 108 mmol/L (98-107); Estimated CRCL calculation 29 ml/min; Estimated Glomerular Filt Rate 32; Glucose 104 mg/dL (65-110); Potassium 3.9 mmol/L (3.4-5.0); Sodium 135 mmol/L (137-145)
--- NOTE | 2023-04-03 08:57 | P.PNIM_ITS ---
Progress Note: A&P Assessment and Plan (1) Acute respiratory failure with hypoxia: Code(s): J96.01 - Acute respiratory failure with hypoxia Status: Acute Assessment and Plan: 04/02/23: * CXR- revealing retrocardiac opacification representing atelectasis or pneumonia, small left pleural effusion.l * Blood cultures pending * Continue azithromycin, and Rocephin * Will check a procalcitonin today * Patient currently on 2 L nasal cannula 04/03/23: * Procalcitonin 0.1 * Patient remains on 2L NC * Start IS 10x/hr and wean oxygen for saturation between 88-92% * Ordered a home O2 evaluation * Spoke with Care coordination about the possible need of home O2 * Continue with IV antibiotics for now. Will look to transition off of IV antibiotics tomorrow. * Blood cultures showing no growth to date (2) Pneumonia: Code(s): J18.9 - Pneumonia, unspecified organism Status: Acute Assessment and Plan: 04/02/23: * see above (3) CHF exacerbation: Qualifiers: Heart failure type: systolic Qualified Code(s): I50.23 - Acute on chronic systolic (congestive) heart failure Code(s): I50.9 - Heart failure, unspecified Status: Acute Assessment and Plan: 04/02/23: * Pro BNP 86278 * home medications restarted. * She did receive 1 time dose of 40 mg of Lasix in the ER 04/03/23: * No change to current treatment plan (4) Chronic kidney disease, stage 3b: Code(s): N18.32 - Chronic kidney disease, stage 3b Status: Chronic Assessment and Plan: 04/02/23: * BUN 13, Creatinine 1.70, eGFR 29 * Estimated creatinine clearance 28 * Continue to monitor labs. 04/03/23: * BUN 12, creatinine 1.6 * Continue to monitor labs (5) Insulin dependent diabetes mellitus: Status: Chronic Assessment and Plan: 04/02/23: * BG ranging 130-137 * Lantus 40 units ordered * Januvia 100 mg po daily restarted, however patient refusing this medication as she states she does not take that anymore. * Accu checks AC and HS * Hgb A1C 6.5 04/03/23: * Blood sugars ranging 127-172 * No change to current treatment plan (6) Obesity (BMI 30.0-34.9): Code(s): E66.9 - Obesity, unspecified Status: Acute Assessment and Plan: 04/02/23: * 81.1 kg, BMI 29.8 Time Spent With Patient Time with patient: Greater than 35 minutes Subjective Date/time seen: 04/03/23 08:57 Interval history: Interval history: This is a 73 year old female who presents to the hospital via EMS for hypoxia and dyspnea which has progressively worsened over the last several days. Chest x-ray revealing retrocardiac opacification representing atelectasis versus pneumonia, small left pleural effusion. ProBNP 21962 on admission. Patient was given albuterol nebulizer treatments, 40 mg IV Lasix, blood cultures were obtained, patient started on Rocephin and Azithromycin. Of note patient has history of breast cancer with a bilateral mastectomy done about 25 years ago she is a patient of Dr. Graves at [facility] in [facility]. Her most recent PET scan showed metastatic disease and she had her last treatment on Thursday. On Thursday she was given a dose of Xgeval 120 mg, and Faslodex 500 mg according to [facility]. Patient stated that she started getting short of breath and hypoxic after that. Denies any recent illness or sick contacts. 04/02/23: On examination today patient is alert oriented x4, lying in the bed. Vital signs have been stable, she is afebrile, she is down to 2 L nasal cannula. She denie
--- NOTE | 2023-04-03 08:57 | PM.IMPN ---
Progress Note: A&P Assessment and Plan (1) Acute respiratory failure with hypoxia: Code(s): J96.01 - Acute respiratory failure with hypoxia Status: Acute Assessment and Plan: 04/02/23: CXR- revealing retrocardiac opacification representing atelectasis or pneumonia, small left pleural effusion.l Blood cultures pending Continue azithromycin, and Rocephin Will check a procalcitonin today Patient currently on 2 L nasal cannula 04/03/23: Procalcitonin 0.1 Patient remains on 2L NC Start IS 10x/hr and wean oxygen for saturation between 88-92% Ordered a home O2 evaluation Spoke with Care coordination about the possible need of home O2 Continue with IV antibiotics for now. Will look to transition off of IV antibiotics tomorrow. Blood cultures showing no growth to date (2) Pneumonia: Code(s): J18.9 - Pneumonia, unspecified organism Status: Acute Assessment and Plan: 04/02/23: see above (3) CHF exacerbation: Qualifiers: Heart failure type: systolic Qualified Code(s): I50.23 - Acute on chronic systolic (congestive) heart failure Code(s): I50.9 - Heart failure, unspecified Status: Acute Assessment and Plan: 04/02/23: Pro BNP 59661 home medications restarted. She did receive 1 time dose of 40 mg of Lasix in the ER 04/03/23: No change to current treatment plan (4) Chronic kidney disease, stage 3b: Code(s): N18.32 - Chronic kidney disease, stage 3b Status: Chronic Assessment and Plan: 04/02/23: BUN 13, Creatinine 1.70, eGFR 29 Estimated creatinine clearance 28 Continue to monitor labs. 04/03/23: BUN 12, creatinine 1.6 Continue to monitor labs (5) Insulin dependent diabetes mellitus: Status: Chronic Assessment and Plan: 04/02/23: BG ranging 130-137 Lantus 40 units ordered Januvia 100 mg po daily restarted, however patient refusing this medication as she states she does not take that anymore. Accu checks AC and HS Hgb A1C 6.5 04/03/23: Blood sugars ranging 127-172 No change to current treatment plan (6) Obesity (BMI 30.0-34.9): Code(s): E66.9 - Obesity, unspecified Status: Acute Assessment and Plan: 04/02/23: 81.1 kg, BMI 29.8 Time Spent With Patient Time with patient: Greater than 35 minutes Subjective Date/time seen: 04/03/23 08:57 Interval history: Interval history: This is a 73 year old female who presents to the hospital via EMS for hypoxia and dyspnea which has progressively worsened over the last several days. Chest x-ray revealing retrocardiac opacification representing atelectasis versus pneumonia, small left pleural effusion. ProBNP 70512 on admission. Patient was given albuterol nebulizer treatments, 40 mg IV Lasix, blood cultures were obtained, patient started on Rocephin and Azithromycin. Of note patient has history of breast cancer with a bilateral mastectomy done about 25 years ago she is a patient of Dr. Graves at [facility] in [facility]. Her most recent PET scan showed metastatic disease and she had her last treatment on Thursday. On Thursday she was given a dose of Xgeval 120 mg, and Faslodex 500 mg according to [facility]. Patient stated that she started getting short of breath and hypoxic after that. Denies any recent illness or sick contacts. 04/02/23: On examination today patient is alert oriented x4, lying in the bed. Vital signs have been stable, she is afebrile, she is down to 2 L nasal cannula. She denies any pain at this time. She states she rested overnight without any issues. Crackles noted to the bases of her lungs this morning. Patient states that she was supposed to have an echocardiogram done prior to new treatment that Dr. Graves is going to put her on as it can affect the heart however she was unable to go due to feeling unwell. We will go ahead and obtain that today. Patient does have sores in her mouth from her chemo medication. I will
[2023-04-03] MEDS: FLUTICASONE/UMECLIDIN/VILANTER 100-62.5-25 MCG ELLIPTA 1 PUFF INHALATION (09:43)
--- NOTE | 2023-04-03 09:58 | PC.NURSE ---
Turbine Inspector waiting to give medications as patient is getting an Echo at bedside
[2023-04-03] MEDS: ASPIRIN 81 MG ENTERIC TABLET PO (11:44)
[2023-04-03] MEDS: amLODIPine BESYLATE 5 MG TABLET PO (11:44)
[2023-04-03] MEDS: METOPROLOL TARTRATE 25 MG TABLET PO ×2 (11:44→21:25)
[2023-04-03] MEDS: buPROPion HCL XL (24 HR) 150 MG TABCR 300 MG PO (11:44)
[2023-04-03] MEDS: busPIRone HCL 10 MG TABLET PO ×2 (11:44→16:04)
[2023-04-03] MEDS: CHOLECALCIFEROL 1,000 UNITS TABLET 5000 UNITS PO (11:44)
[2023-04-03] MEDS: ROSUVASTATIN 10 MG TABLET 40 MG PO (11:45)
[2023-04-03] MEDS: PANTOPRAZOLE 40 MG TABLET PO ×2 (11:45→21:25)
[2023-04-03] MEDS: ENOXAPARIN 30 MG/0.3 ML SYRINGE SUB-Q (11:45)
--- NOTE | 2023-04-03 15:55 | HOMEO2EVAL ---
Evaluation was performed at [facility] Home Oxygen Evaluation RC: Home Oxygen (O2) Evaluation Start: 04/03/23 15:13 Freq: ONCE Status: Active Protocol: RPE Activity Type Activity Date Activity User E-sign Co-sign Detail Recorded Client Recorded Date Recorded By Document 04/03/23 15:20 [email or web address] [email or web address] 04/03/23 15:54 DJO Document 04/03/23 15:25 [email or web address] [email or web address] 04/03/23 15:54 DJO Document 04/03/23 15:30 [email or web address] [email or web address] 04/03/23 15:54 DJO Document 04/03/23 15:35 [email or web address] [email or web address] 04/03/23 15:54 DJO Document 04/03/23 15:45 [email or web address] [email or web address] 04/03/23 15:54 DJO 04/03/23 04/03/23 04/03/23 15:20 15:25 15:30 Home O2 Evaluation [Oxygen] -Test Phase Resting Exercise Exercise -Oxygen Delivery Room Air Room Air Nasal Cannula -Oxygen Flow Rate (L/min) 1 [Pulse Oximetry] -Pulse Oximetry (90-100 %) 93 86 L 88 L [Pulse Rate] -Pulse Rate (60-100 beats/min) 64 82 85 [Evaluation] -Activity Tolerance [Charges] -Treatment Charges O2 Evaluation - Inpatient 04/03/23 04/03/23 15:35 15:45 Home O2 Evaluation [Oxygen] -Test Phase Exercise Resting -Oxygen Delivery Nasal Cannula Room Air -Oxygen Flow Rate (L/min) 2 [Pulse Oximetry] -Pulse Oximetry (90-100 %) 91 93 [Pulse Rate] -Pulse Rate (60-100 beats/min) 86 66 [Evaluation] -Activity Tolerance Good [Charges] -Treatment Charges
[2023-04-03] MEDS: hydrOXYzine HCL 10 MG TABLET PO (16:05)
[2023-04-03] MEDS: SERTRALINE HCL 50 MG TABLET PO (21:25)
[2023-04-03] MEDS: traZODone HCL 50 MG TABLET 100 MG PO (21:25)
[2023-04-04] VITALS: PULSE 69
[2023-04-04 04:00] VITALS: PULSE 68
[2023-04-04 04:48] VITALS: BP 158/60; PULSE 65; RESP 18; TEMP 36.5; O2SAT 98
[2023-04-04 05:11] LABS: Basophils Percent Auto 0.7 % (0.2-1.2); Eosinophils Absolute Auto 0.2 K/mm3 (0-0.3); Eosinophils Percent Auto 4.7 % (0-4.4); Hematocrit 35.6 % (37.0-47.0); Hemoglobin 10.9 g/dL (12.0-15.0); Immature Granulocyte Absolute 0.01 K/mm3 (0.00-0.031); Immature Granulocyte Percent A 0.2 % (0-0.5); Immature Platelet Fraction Pct 3.3 % (0.9-11.2); Lymphocytes Absolute Auto 0.76 K/mm3 (0.9-3.2); Lymphocytes Percent Auto 17.8 % (18.3-44.2); Mean Corpuscular HGB Conc 30.6 g/dl (32-36); Mean Corpuscular Hemoglobin 29.8 pg (26-34); Mean Corpuscular Volume 97.3 fl (80-100); Mean Platelet Volume 9.7 fl (7.4-10.4); Monocytes Absolute Auto 0.4 K/mm3 (0.1-0.6); Monocytes Percent Auto 8.9 % (2.6-8.5); Neutrophils Absolute Auto 2.9 K/mm3 (1.3-6.7); Neutrophils Percent Auto 67.7 % (45.5-73.1); Platelet Count Result 129 k/mm3 (150-375); Red Blood Count 3.66 M/mm3 (4.2-5.4); White Blood Count 4.3 K/mm3 (4.5-10.0)
[2023-04-04 05:23] LABS: Alanine Aminotransferase 16 U/L (6-35); Albumin Level 3.3 g/dL (3.5-5.1); Alkaline Phosphatase 108 U/L (38-126); Anion Gap 5 mmol/L (8-16); Aspartate Amino Transferase 33 U/L (14-36); Bilirubin,Total 0.5 mg/dL (0.2-1.3); Blood Urea Nitrogen 12 mg/dL (7-17); Carbon Dioxide 28 mmol/L (22-30); Chloride 104 mmol/L (98-107); Estimated CRCL calculation 25 ml/min; Estimated Glomerular Filt Rate 26; Glucose 111 mg/dL (65-110); Sodium 137 mmol/L (137-145)
[2023-04-04] MEDS: HYDROcodone/acetaminophen (*CRX) 5-325 MG TABLET 1 TAB PO (05:38)
[2023-04-04 08:00] VITALS: PULSE 57
[2023-04-04] MEDS: FLUTICASONE/UMECLIDIN/VILANTER 100-62.5-25 MCG ELLIPTA 1 PUFF INHALATION (09:22)
[2023-04-04] MEDS: busPIRone HCL 10 MG TABLET PO (09:28)
[2023-04-04] MEDS: CHOLECALCIFEROL 1,000 UNITS TABLET 5000 UNITS PO (09:28)
[2023-04-04] MEDS: buPROPion HCL XL (24 HR) 150 MG TABCR 300 MG PO (09:28)
[2023-04-04 09:29] VITALS: PULSE 63
[2023-04-04] MEDS: ASPIRIN 81 MG ENTERIC TABLET PO (09:29)
[2023-04-04] MEDS: amLODIPine BESYLATE 5 MG TABLET PO (09:29)
[2023-04-04] MEDS: PANTOPRAZOLE 40 MG TABLET PO (09:29)
[2023-04-04] MEDS: METOPROLOL TARTRATE 25 MG TABLET PO (09:29)
[2023-04-04] MEDS: ENOXAPARIN 30 MG/0.3 ML SYRINGE SUB-Q (09:30)
[2023-04-04] MEDS: ROSUVASTATIN 10 MG TABLET 40 MG PO (09:36)
--- NOTE | 2023-04-04 11:15 | PM.DS ---
DS: Admitting Diagnosis Discharge Date 04/04/23 Admitting Diagnosis Acute hypoxic respiratory failure Pneumonia Hypoxia CHF exasperation Heart failure DS: Discharge Diagnosis Discharge Diagnosis (1) Acute respiratory failure with hypoxia: Code(s): J96.01 - Acute respiratory failure with hypoxia Status: Acute (2) Pneumonia: Code(s): J18.9 - Pneumonia, unspecified organism Status: Acute (3) CHF exacerbation: Qualifiers: Heart failure type: systolic Qualified Code(s): I50.23 - Acute on chronic systolic (congestive) heart failure Code(s): I50.9 - Heart failure, unspecified Status: Acute (4) Chronic kidney disease, stage 3b: Code(s): N18.32 - Chronic kidney disease, stage 3b Status: Chronic (5) Insulin dependent diabetes mellitus: Status: Chronic (6) Obesity (BMI 30.0-34.9): Code(s): E66.9 - Obesity, unspecified Status: Acute DS: Summary Hospital Course Reason for hospitalization: Pneumonia Acute respiratory failure with hypoxia Hospital Course: This is a 73-year-old female who presented to the hospital on 04/01/2023 with complaints of hypoxia and dyspnea which has progressively worsened over the last several days prior to admission. Chest x-ray revealed a retrocardiac opacification representing atelectasis versus pneumonia, small pleural effusion. Her pro BNP on admission was 11,500. She was given albuterol nebulizer treatments, 40 mg of Lasix, and blood cultures were obtained. She was started on Rocephin and azithromycin for pneumonia coverage. Patient has a significant history of breast cancer with bilateral mastectomy done about 25 years ago. She is a patient of Dr. Graves in [facility]. Her most recent PET scan showed metastatic disease and she had her last chemo treatment on Thursday and she was given a dose of Xgeval 120 mg and Faslodex 500 mg according to the nurse at [facility]. Patient stated that she was getting short of breath after that. She was placed on 2 L nasal cannula. Blood cultures showed no growth day 5. Labs today reveal white blood cell count 4.3, RBC 3.66, hemoglobin 10.9, hematocrit 35.6, sodium 137, potassium 4.0, BUN 12, creatinine 1.9, blood sugars ranging 104-111, liver enzymes are normal. Vital signs have been stable, she is afebrile, she is on 2 L nasal cannula. Patient had a home O2 test done this admission where she is requiring oxygen for outpatient. She also had an echo done this admission which showed severely reduced LV function with an ejection fraction of 30-35%, moderate pericardial effusion, pleural effusion, mild pulmonary hypertension, grade 1 diastolic dysfunction, and a normal RV function. Discussed with patient that she needs to get a hold of her oncology team so they can request records for the echo report. Patient will be discharged with azithromycin and doxycycline. She is to finish both medications and follow-up with her primary care within 1 week. She has an appointment with Dr. Graves on the . Also discussed with patient that she should call the phone number on her oxygen tank that was delivered yesterday for oxygen delivery. She is still requiring 2 L nasal cannula today. Patient is stable for discharge Status at Discharge Cognitive/behavioral status at discharge: Alert and oriented x4 Functional status at discharge: independent ambulation Overall status at discharge: patient is progressing back to baseline Time Spent with Patient Time attestation: Total time spent providing and/or coordinating discharge services: Time spent: Greater than 30 minutes Exam Narrative: GENERAL: Well-developed, well-nourished, and in no acute distress. HEAD: Normocephalic, atraumatic. EYES: PERRLA and EOMI. ENT: Nares clear, no rhinorrhea or epistaxis.? Mucous membranes dry, mouth sores present.? NECK: Supple.? No JVD, no adenopathy, trachea midline CHEST: Lungs clear to auscu
[2023-04-04 12:00] VITALS: PULSE 71
[2023-04-04] MEDS: hydrOXYzine HCL 10 MG TABLET PO (12:24)
== END 2023-04-04 14:00 | disposition home or self-care (01) | DRG 193 ==
LOC: ANHED 19:29 → ANH3MED 20:51
PROVIDERS: Admitting Provider Student in an Organized Health Care Education/Training Program; Emergency Provider Preventive Medicine Aerospace Medicine; PCP Family Medicine; Visit Provider Nurse Practitioner Acute Care
DX: J18.9 Pneumonia, unspecified organism (principal); I50.23 Acute on chronic systolic (congestive) heart failure; J96.01 Acute respiratory failure with hypoxia; J44.0 Chronic obstructive pulmonary disease with (acute) lower respiratory infection; N18.4 Chronic kidney disease, stage 4 (severe); C79.9 Secondary malignant neoplasm of unspecified site; I27.20 Pulmonary hypertension, unspecified; I12.9 Hypertensive chronic kidney disease with stage 1 through stage 4 chronic kidney disease, or unspecified chronic kidney disease; E11.22 Type 2 diabetes mellitus with diabetic chronic kidney disease; E78.2 Mixed hyperlipidemia; D47.2 Monoclonal gammopathy; K21.9 Gastro-esophageal reflux disease without esophagitis; K13.79 Other lesions of oral mucosa; T45.1X5A Adverse effect of antineoplastic and immunosuppressive drugs, initial encounter; G47.33 Obstructive sleep apnea (adult) (pediatric); Z90.13 Acquired absence of bilateral breasts and nipples; Z85.3 Personal history of malignant neoplasm of breast; Z87.891 Personal history of nicotine dependence; Z79.4 Long term (current) use of insulin; Z79.82 Long term (current) use of aspirin
CPT/HCPCS: 36415; 71045; 80048; 80053; 81001; 82948; 83735; 83880; 84145; 84484; 85025; 85055; 85380; 85610; 85730; 87040; 93005; 93306; 94618; 94640; 96365; 96367; 96375; 99285; A9270; G0378; J0456; J0696; J1650; J1940; J2405; J7060

== ENCOUNTER 2023-04-14 12:37 | Outpatient (CLI) | payer MEDICARE, MEDICAID, SELFPAY ==
--- NOTE | ~2023-04-14 | NM_ITS ---
EXAMINATION: NM muga DATE: 04/14/2023 14:24 INDICATION: Monitoring while receiving chemotherapy. COMPARISON: Chest CT 03/06/2023 TECHNIQUE: Stannous pyrophosphate was administered IV. After a waiting period, 25.6 mCi Tc-99m pertec hnetate was administered IV to radiolabel the red blood cells. Gated images of the heart were obtaine d in the best septal view.] FINDINGS: There is no regional wall motion abnormality or paradoxical motion of the left ventricle. The left ventricular ejection fraction measures 27%. IMPRESSION: 1. Decreased left ventricular ejection fraction measuring 27%. Reviewed, dictated and finalized at location A. [employer]
== END 2023-04-14 12:38 | disposition home or self-care (01) ==
LOC: ANHIMG 12:39
PROVIDERS: PCP Family Medicine; Visit Provider Internal Medicine Medical Oncology
DX: Z51.11 Encounter for antineoplastic chemotherapy (principal); I50.1 Left ventricular failure, unspecified
CPT/HCPCS: 78472; A9560

== ENCOUNTER 2023-04-17 14:47 | Outpatient (CLI) | payer MEDICARE, SELFPAY ==
[2023-04-17 16:07] LABS: Hemoglobin A1C 4.8 % (<5.7)
[2023-04-17 16:08] LABS: Alanine Aminotransferase 27 U/L (6-35); Albumin Level 3.9 g/dL (3.5-5.1); Alkaline Phosphatase 173 U/L (38-126); Anion Gap 12 mmol/L (8-16); Aspartate Amino Transferase 67 U/L (14-36); Bilirubin,Total 0.5 mg/dL (0.2-1.3); Blood Urea Nitrogen 26 mg/dL (7-17); Calcium 9.6 mg/dL (8.4-10.2); Carbon Dioxide 23 mmol/L (22-30); Chloride 101 mmol/L (98-107); Estimated Glomerular Filt Rate 23; Glucose 122 mg/dL (65-110); Potassium 3.9 mmol/L (3.4-5.0); Sodium 136 mmol/L (137-145)
[2023-04-17 16:09] LABS: Iron 91 ug/dL (37-170)
[2023-04-17 16:21] LABS: Percent Iron Saturation 42 % (20-50)
[2023-04-17 17:18] LABS: Folic Acid 3.3 ng/mL (2.76->20)
== END 2023-04-17 14:48 | disposition home or self-care (01) ==
PROVIDERS: PCP Family Medicine; Visit Provider Physician Assistant
DX: D64.9 Anemia, unspecified (principal); N18.32 Chronic kidney disease, stage 3b; K57.91 Diverticulosis of intestine, part unspecified, without perforation or abscess with bleeding; E11.22 Type 2 diabetes mellitus with diabetic chronic kidney disease; E78.2 Mixed hyperlipidemia
CPT/HCPCS: 36415; 80053; 82607; 82728; 82746; 83036; 83540; 83550; 84443

== ENCOUNTER 2023-07-13 16:59 | Observation (INO) | payer MEDICARE, MEDICAID, SELFPAY ==
[2023-07-13 16:59] VITALS: BP 152/72; PULSE 92; RESP 17; TEMP 36.1; O2SAT 100
--- NOTE | 2023-07-13 17:22 | ED.GIBLEED ---
HPI - GI Bleed General Chief complaint: GI Bleed Stated complaint: loose stools Time Seen by Provider: 07/13/23 17:07 Source: patient and EMS Mode of arrival: EMS Limitations: no limitations History of Present Illness HPI Narrative: This is a 73 year old female that presents to the ER for GI bleed. Patient has had black tarry stools for weeks. Patient is currently on hospice for metastatic breast cancer. She is still in independent living. Hospice nurse feels patient maybe needs some more care at home. She was having loose stools and was unable to clean herself up. Patient reported to me she was ready to and just wants to be comfortable. Related Data Home Medications Medication Instructions Recorded Confirmed bupropion HCl 300 mg 24 hr tablet, 300 mg PO DAILY 05/25/22 04/17/23 extended release sertraline 25 mg tablet (Zoloft) 50 mg PO HS 05/25/22 04/17/23 trazodone 100 mg tablet 100 mg PO HS 05/25/22 04/17/23 hydrocodone 5 mg-acetaminophen 325 1 tablet PO Q4H PRN Pain 05/26/22 04/17/23 mg tablet hydroxyzine HCl 10 mg tablet 10 mg PO DAILY PRN anxiety 11/07/22 04/17/23 ondansetron HCl 4 mg tablet 4 mg PO Q6H PRN Nausea And Vomiting 04/01/23 04/17/23 Allergies Allergy/AdvReac Type Severity Reaction Status Date / Time prochlorperazine Allergy Intermediate LOCK JAW Verified 04/17/23 13:53 Review of Systems Review of Systems: CONSTITUTIONAL: Denies fever GASTROINTESTINAL: Reports abdominal pain, and diarrhea. All systems reviewed & are unremarkable except as noted in HPI and below PMFSH Past Medical History Medical History Chronic obstructive pulmonary disease HSV-1 (herpes simplex virus 1) infection Hypertension Insulin dependent diabetes mellitus Metastatic breast cancer Mixed hyperlipidemia Monoclonal gammopathy of undetermined significance Nonerosive esophageal reflux disease Obstructive sleep apnea Otitis media Stage 4 chronic kidney disease Surgical History Surgical History History of bilateral mastectomy History of tonsillectomy Family History Family History Mother Family history of malignant neoplasm of breast in first degree relative Other Family history of cardiovascular disease Family history of malignant neoplasm Hypertension Social History Social History Social History: Surrogate medical decision maker: Sanna Newell, daughter. Code status: Full code. Smoking packs per day: 1 Smoking cigarettes per day: 20.0 Years smoked: 25 Smoking pack-years: 25.00 Smoking status: Former smoker Second hand tobacco smoke exposure: No Alcohol intake: never Drinks per week: 1 Alcohol use details: Rare alcohol use in moderation. Substance use: never Substance use type: does not use Lack of Transportation: No Lack of Food: Never True Current Housing: I Have Housing Concerned About Future Housing: No Difficulty Paying Gas/Electric Bills: No Difficulty Paying for Meds: No Currently Unemployed: No Education: High School Diploma/GED Difficulty w/ Childcare or Family Care: No Living arrangements: alone Occupation/Education: retired Spiritual care concerns: No Exam Narrative: GENERAL: Elderly, well-nourished, and in no acute distress. HEAD: Normocephalic, atraumatic. EYES: EOMI. CHEST: Clear to auscultation. No respiratory distress. No wheezes rales or rhonchi HEART: Regular rate and rhythm. No murmur heard. Normal peripheral pulses. ABDOMEN: Soft, nontender, nondistended, normal active bowel sounds. EXTREMITIES: Normal range of motion. No edema. SKIN: Warm, dry, no rash. NEURO: No focal deficits. Alert and oriented x3. PSYCH: Normal mood and affect Course Course Emergency Course: Long discussion with patient and family.
--- NOTE | 2023-07-13 17:34 | PC.NURSE ---
[facility] industrial sales representative at bedside speaking with patient about options for care. Pt anxious about condition and living situation. FREDDIE Matson at bedside speaking with hospice rep about plan of care.
[2023-07-13 20:12] VITALS: BP 130/75; PULSE 89; RESP 20; O2SAT 98
--- NOTE | 2023-07-13 20:47 | PM.IMHP ---
H&P: HPI History of Present Illness Date/Time: 07/13/23 20:47 Chief Complaint: End of life Narrative: This is a 73-year-old female with past medical history significant for end-stage breast cancer. Patient presents to the emergency room due to generalized weakness, has been having melena for several days, poor per orally intake, poor appetite. Patient is a hospice patient but lives by herself has not been able to prepare meals. Patient does not want any interventions but desires to have more help at home someone that can come stay and check in with her everyday. Patient has been admitted for further management. Review of Systems Review of Systems: Generalized weakness, poor per orally intake, melena. Constitutional: Constitutional: Reports poor appetite and Reports weakness Eyes: Eyes: Denies change in vision ENT: Denies dysphagia, Reports dizziness and Denies odynophagia Cardiovascular: Cardiovascular: Denies chest pain Respiratory: Respiratory: Denies cough Gastrointestinal: Gastrointestinal: Reports melena Genitourinary: Genitourinary: Denies dysuria Musculoskeletal: Musculoskeletal: Reports muscle weakness Integumentary/Breasts: Skin/Breast: Denies rash Neurologic: Denies focal weakness and Denies Sensory deficit (Neuro) Psychiatric: Psychiatric: Reports no additional psychiatric complaints and Reports as per HPI Endocrine: Endocrine: Denies cold intolerance, Denies flushing, Denies heat intolerance, Denies polyphagia, Denies polydipsia and Denies palpitations Hematologic/Lymphatic: Hematologic/Lymphatic: Reports no additional hematologic/lymphatic complaints and Reports as per HPI Allergic/Immunologic: Allergic/Immunologic: Reports no additional allergic/immunologic complaints and Reports as per HPI PMFSH Past Medical History Medical History Chronic obstructive pulmonary disease HSV-1 (herpes simplex virus 1) infection Hypertension Insulin dependent diabetes mellitus Metastatic breast cancer Mixed hyperlipidemia Monoclonal gammopathy of undetermined significance Nonerosive esophageal reflux disease Obstructive sleep apnea Otitis media Stage 4 chronic kidney disease Surgical History Surgical History History of bilateral mastectomy History of tonsillectomy Family History Family History Mother Family history of malignant neoplasm of breast in first degree relative Other Family history of cardiovascular disease Family history of malignant neoplasm Hypertension Social History Social History Social History: Surrogate medical decision maker: Sanna Newell, daughter. Code status: Full code. Smoking packs per day: 1 Smoking cigarettes per day: 20.0 Years smoked: 25 Smoking pack-years: 25.00 Smoking status: Former smoker Second hand tobacco smoke exposure: No Alcohol intake: never Drinks per week: 1 Alcohol use details: Rare alcohol use in moderation. Substance use: never Substance use type: does not use Do You Feel Safe in your Home?: Yes Lack of Transportation: No Lack of Food: Never True Current Housing: I Have Housing Concerned About Future Housing: No Difficulty Paying Gas/Electric Bills: No Difficulty Paying for Meds: No Currently Unemployed: No Education: High School Diploma/GED Difficulty w/ Childcare or Family Care: No Living arrangements: alone Occupation/Education: retired Spiritual care concerns: No Meds Home Medications and Allergies Home Medications Medication Instructions Recorded Confirmed Type aspirin 81 mg tablet,delayed 81 mg PO DAILY #90 tabs 10/08/21 07/13/23 Rx release cholecalciferol (vitamin D3) 125 5,000 unit PO DAILY #90 tabs 10/09/21 07/13/23 Rx mcg (5,000 unit) tablet sertral
[2023-07-13 21:15] LABS: Basophils Percent Auto 0.2 % (0.2-1.2); Eosinophils Percent Auto 0.4 % (0-4.4); Hemoglobin 10.8 g/dL (12.0-15.0); Immature Granulocyte Absolute 0.04 K/mm3 (0.00-0.031); Immature Granulocyte Percent A 0.7 % (0-0.5); Lymphocytes Absolute Auto 0.33 K/mm3 (0.9-3.2); Lymphocytes Percent Auto 5.9 % (18.3-44.2); Mean Corpuscular HGB Conc 30.9 g/dl (32-36); Mean Corpuscular Hemoglobin 27.5 pg (26-34); Mean Corpuscular Volume 89.1 fl (80-100); Mean Platelet Volume 11.4 fl (7.4-10.4); Monocytes Absolute Auto 0.4 K/mm3 (0.1-0.6); Monocytes Percent Auto 7.1 % (2.6-8.5); Neutrophils Absolute Auto 4.8 K/mm3 (1.3-6.7); Neutrophils Percent Auto 85.7 % (45.5-73.1); Nucleated Red Blood Cells Perc 0.4 % (0.0-0.2); Platelet Count Result 158 k/mm3 (150-375); Red Blood Count 3.93 M/mm3 (4.2-5.4); Red Cell Distribution Width 16.1 % (11.5-14.5); White Blood Count 5.6 K/mm3 (4.5-10.0)
[2023-07-13 21:27] LABS: Alanine Aminotransferase 13 U/L (6-35); Albumin Level 3.4 g/dL (3.5-5.1); Alkaline Phosphatase 97 U/L (38-126); Anion Gap 17 mmol/L (8-16); Aspartate Amino Transferase 40 U/L (14-36); Bilirubin,Total 0.7 mg/dL (0.2-1.3); Blood Urea Nitrogen 40 mg/dL (7-17); Calcium 8.5 mg/dL (8.4-10.2); Carbon Dioxide 15 mmol/L (22-30); Chloride 102 mmol/L (98-107); Estimated CRCL calculation 22 ml/min; Estimated Glomerular Filt Rate 28; Glucose 149 mg/dL (65-110); Potassium 3.5 mmol/L (3.4-5.0); Sodium 134 mmol/L (137-145)
[2023-07-13] MEDS: CENTRAL LINE FLUSH 10 ML IV PUSH (22:00)
--- NOTE | 2023-07-13 22:17 | ADMGEN ---
This patient, Shahnaz Newell, was admitted to Medical Room 344-01. Patient/family oriented to hospital policies and general routines including ID bracelet, bed and alarms, visiting hours, pain management, procedures, bathroom and other care routines, personal items, smoking policy, room service/diet, and visiting hours. Information on how to activate the Rapid Response Team has been discussed. Patient/Family are encouraged to report perceived risks to care and to ask questions if they do not understand what they are told or what they should do.
[2023-07-13 22:22] VITALS: O2SAT 96
[2023-07-14] VITALS (7 sets, daily range): BP systolic 119–144; BP diastolic 66–77; PULSE 64–92; RESP 18–22; TEMP 36–36.4; O2SAT 98–100
[2023-07-14] MEDS: ONDANSETRON INJ 4 MG/2 ML VIAL IV PUSH (02:30)
[2023-07-14] MEDS: CENTRAL LINE FLUSH 10 ML IV PUSH ×3 (06:15→21:24)
[2023-07-14] MEDS: SUCRALFATE 1 GM TABLET PO ×4 (07:41→21:24)
[2023-07-14] MEDS: FLUTICASONE/UMECLIDIN/VILANTER 100-62.5-25 MCG ELLIPTA 1 PUFF INHALATION (07:41)
[2023-07-14] MEDS: HYDROmorphone HCL INJ (*CRX) 1 MG/ML SYR IV PUSH (07:41)
[2023-07-14 07:57] LABS: Glucose Point of Care 148 mg/dl (65-105)
[2023-07-14 12:55] LABS: Glucose Point of Care 147 mg/dl (65-105)
--- NOTE | 2023-07-14 15:25 | PM.IMPN ---
Progress Note: A&P Assessment and Plan (1) Failure to thrive: Qualifiers: Failure to thrive age range: in adult Qualified Code(s): R62.7 - Adult failure to thrive Status: Acute Assessment and Plan: Secondary to her end stage breast cancer. Pt not eating or drinking. (2) End of life care: Code(s): Z51.5 - Encounter for palliative care Status: Acute Assessment and Plan: [facility] is working with our Care coordination for appropriate placement. (3) Metastatic adenocarcinoma: Code(s): C79.9 - Secondary malignant neoplasm of unspecified site Status: Acute Assessment and Plan: End stage (4) MGUS (monoclonal gammopathy of unknown significance): Code(s): D47.2 - Monoclonal gammopathy Status: Acute Assessment and Plan: Unchanged (5) LENA (obstructive sleep apnea): Code(s): G47.33 - Obstructive sleep apnea (adult) (pediatric) Status: Acute Assessment and Plan: Oxygen nighttime (6) Metastatic breast cancer: Code(s): C50.919 - Malignant neoplasm of unspecified site of unspecified female breast Status: Acute Assessment and Plan: End-stage Plan Patient does not want any interventions desires to continue hospice however does not have social support, lives by herself needs daily help. Pt with [facility] who is working with care coordination to find placement. Time Spent With Patient Time with patient: 25 - 35 minutes Subjective Date/time seen: 07/14/23 0850 Interval history: This elderly, pleasant female pt is examined at the bedside in interval assessment after being admitted to the hospital with End of life care. Pt. was at home on hospice, under [facility], where she lives independently. She has now gotten to the point where she can no longer care for herself at home, and was found yesterday by the hospice company sitting at home covered in stool so she was brought to the ER to assist with placement and subsequently admitted with a dx of end of life care secondary to her end stage breast cancer and she does not wish to have any further treatment or workup for anything. She just wants to be comfortable. Hospice service is working with our Care Coordination to find pt placement elsewhere and where she can continue her Hospice. Pt is A&Ox4 and adamantly declines any further treatment or workup at this time. Review of Systems Review of Systems: All systems reviewed & are unremarkable except as noted in HPI and below Exam Narrative: CONSTITUTIONAL: Elderly, chronically ill appearing female lying supine in bed at this time. She appears very tired. HEENT: Head is atraumatic and normocephalic without any hematomas, contusions or lesions. Dry mucous membranes, and patent oropharynx. EYES: PERRLA, EOM's intact. NECK: Supple and FROM. No LN and no JVD CARDIAC: RRR, S1 and S2. No S3, S4, m,r,g,h or displacement of PMI. RESPIRATORY: Decreased in all lobes. GI: Soft, NT, BS present in all four quads. SKIN: Pale, no lesions or rashes. NEURO: Non-focal exam, but pt very tired. EXTREMITY: FROM of all extremities PSYCH: flat affect. Objective Data Vital Signs Vital Signs: Vital Signs - 24 hr 07/13/23 16:59 07/13/23 20:12 07/13/23 22:22 Temperature 96.9 F L Pulse Rate 92 89 Respiratory Rate 17 20 Blood Pressure 152/72 H 130/75 Pulse Oximetry 100 98 96 Oxygen Delivery Nasal Cannula Nasal Cannula Oxygen Flow Rate 3 3 07/14/23 00:00 07/14/23 07:41 07/14/23 06:00 Temperature 97.3 F L 97.2 F L Pulse Rate 84 92 Respiratory Rate 20 22 H Blood Pressure 119/77 122/74 Pulse Oximetry 99 100 100 Oxygen Delivery Nasal Cannula Oxygen Flow Rate 3 07/14/23 07:50 07/14/23 13:57 Temperature 97.6 F Pulse Rate 90 Respiratory Rate 19 Blood Pressure 124/66 Pulse Oximetry 100 99 Oxygen Delivery Nasal Cannula Oxygen Flow Rate 3 Intake/Output Intake/Output: Intake & Output
[2023-07-14] MEDS: SODIUM CHLORIDE 0.9% IV 1,000 ML 100 ML IV CONT (17:21)
[2023-07-14] MEDS: HYDROcodone/acetaminophen (*CRX) 5-325 MG TABLET 1 TAB PO (17:21)
[2023-07-14] MEDS: SERTRALINE HCL 50 MG TABLET PO (21:24)
[2023-07-14] MEDS: traZODone HCL 50 MG TABLET 100 MG PO (21:24)
[2023-07-15] MEDS: SODIUM CHLORIDE 0.9% IV 1,000 ML 100 ML IV CONT ×3 (03:23→22:32)
[2023-07-15] MEDS: CENTRAL LINE FLUSH 10 ML IV PUSH ×3 (05:47→22:34)
[2023-07-15 06:00] VITALS: BP 130/68; PULSE 89; RESP 20; TEMP 36.1; O2SAT 98
[2023-07-15 06:55] VITALS: PULSE 72; RESP 18; O2SAT 99
[2023-07-15] MEDS: FLUTICASONE/UMECLIDIN/VILANTER 100-62.5-25 MCG ELLIPTA 1 PUFF INHALATION (06:58)
[2023-07-15 08:52] LABS: Glucose Point of Care 146 mg/dl (65-105)
[2023-07-15] MEDS: ONDANSETRON INJ 4 MG/2 ML VIAL IV PUSH ×2 (09:01→22:08)
[2023-07-15] MEDS: SUCRALFATE 1 GM TABLET PO ×3 (09:01→16:41)
[2023-07-15] MEDS: HYDROcodone/acetaminophen (*CRX) 5-325 MG TABLET 1 TAB PO (09:47)
[2023-07-15 10:00] VITALS: O2SAT 99
[2023-07-15 12:01] LABS: Glucose Point of Care 171 mg/dl (65-105)
[2023-07-15 14:00] VITALS: BP 134/59; PULSE 89; RESP 16; TEMP 36.3; O2SAT 98
--- NOTE | 2023-07-15 15:51 | PM.IMPN ---
Progress Note: A&P Assessment and Plan (1) Failure to thrive: Qualifiers: Failure to thrive age range: in adult Qualified Code(s): R62.7 - Adult failure to thrive Status: Acute Assessment and Plan: Secondary to her end stage breast cancer. Pt not eating or drinking. (2) End of life care: Code(s): Z51.5 - Encounter for palliative care Status: Acute Assessment and Plan: [facility] is working with our Care coordination for appropriate placement. (3) Metastatic adenocarcinoma: Code(s): C79.9 - Secondary malignant neoplasm of unspecified site Status: Acute Assessment and Plan: End stage (4) MGUS (monoclonal gammopathy of unknown significance): Code(s): D47.2 - Monoclonal gammopathy Status: Acute Assessment and Plan: Unchanged (5) LENA (obstructive sleep apnea): Code(s): G47.33 - Obstructive sleep apnea (adult) (pediatric) Status: Acute Assessment and Plan: Oxygen nighttime (6) Metastatic breast cancer: Code(s): C50.919 - Malignant neoplasm of unspecified site of unspecified female breast Status: Acute Assessment and Plan: End-stage Plan Patient does not want any interventions desires to continue hospice however does not have social support, lives by herself needs daily help. Pt with [facility] who is working with care coordination to find placement. Subjective Date/time seen: 07/15/23 15:51 Interval history: This elderly, pleasant female pt is examined at the bedside in interval assessment after being admitted to the hospital with End of life care. Pt. was at home on hospice, under [facility], where she lives independently. She has now gotten to the point where she can no longer care for herself at home, and was found yesterday by the hospice company sitting at home covered in stool so she was brought to the ER to assist with placement and subsequently admitted with a dx of end of life care secondary to her end stage breast cancer and she does not wish to have any further treatment or workup for anything. She just wants to be comfortable. Hospice service is working with our Care Coordination to find pt placement elsewhere and where she can continue her Hospice. Pt is A&Ox4 and adamantly declines any further treatment or workup at this time. Interval Hx: 07/15/2023 I assumed care for pt today, she is up using the Bedside commode, in no acute distress, she denies any overnight events. Pt continues to request assistance with comfort, she still does not desire hospice. She denies any c/o or concerns at this time. Review of Systems Review of Systems: All systems reviewed & are unremarkable except as noted in HPI and below Exam Narrative: CONSTITUTIONAL: Elderly, chronically ill appearing female lying supine in bed at this time. She appears very tired. HEENT: Head is atraumatic and normocephalic without any hematomas, contusions or lesions. Dry mucous membranes, and patent oropharynx. EYES: PERRLA, EOM's intact. NECK: Supple and FROM. No LN and no JVD CARDIAC: RRR, S1 and S2. No S3, S4, m,r,g,h or displacement of PMI. RESPIRATORY: Decreased in all lobes. GI: Soft, NT, BS present in all four quads. SKIN: Pale, no lesions or rashes. NEURO: Non-focal exam, but pt very tired. EXTREMITY: FROM of all extremities PSYCH: flat affect. Objective Data Vital Signs Vital Signs: Vital Signs - 24 hr 07/14/23 20:00 07/14/23 22:00 07/15/23 06:55 Temperature 96.8 F L Pulse Rate 90 64 72 Respiratory Rate 19 18 18 Blood Pressure 144/68 H Pulse Oximetry 99 98 99 Oxygen Delivery Nasal Cannula Nasal Cannula Oxygen Flow Rate 3 3 07/15/23 06:55 07/15/23 06:00 07/15/23 10:00 Temperature 97.0 F L Pulse Rate 72 89 Respiratory Rate 18 20 Blood Pressure 130/68 Pulse Oximetry 98 99 Oxygen Delivery Nasal Cannula Oxygen Flow Rate 3 07/15/23 14:00 Temperature 97.3 F L Pu
[2023-07-15 20:00] VITALS: O2SAT 100
[2023-07-15 20:31] VITALS: BP 129/69; PULSE 86; RESP 18; TEMP 36.3; O2SAT 100
[2023-07-15] MEDS: LORazepam (*CRX) 0.5 MG TABLET PO (22:27)
[2023-07-15] MEDS: SERTRALINE HCL 50 MG TABLET PO (22:28)
[2023-07-15] MEDS: traZODone HCL 50 MG TABLET 100 MG PO (22:28)
[2023-07-16 05:52] VITALS: BP 124/68; PULSE 91; RESP 22; TEMP 36.2; O2SAT 95
[2023-07-16] MEDS: CENTRAL LINE FLUSH 10 ML IV PUSH ×2 (05:53→13:15)
[2023-07-16 08:00] VITALS: O2SAT 95
[2023-07-16] MEDS: LORazepam (*CRX) 0.5 MG TABLET PO (08:08)
[2023-07-16] MEDS: SUCRALFATE 1 GM TABLET PO ×2 (08:08→13:14)
[2023-07-16] MEDS: FLUTICASONE/UMECLIDIN/VILANTER 100-62.5-25 MCG ELLIPTA 1 PUFF INHALATION (08:57)
[2023-07-16] MEDS: SODIUM CHLORIDE 0.9% IV 1,000 ML 100 ML IV CONT (09:24)
[2023-07-16] MEDS: HYDROmorphone HCL INJ (*CRX) 1 MG/ML SYR IV PUSH (10:14)
--- NOTE | 2023-07-16 13:27 | PM.DS ---
DS: Admitting Diagnosis Discharge Date 07/16/2023 Admitting Diagnosis End of life care Failure to thrive DS: Discharge Diagnosis Discharge Diagnosis (1) Metastatic adenocarcinoma: Code(s): C79.9 - Secondary malignant neoplasm of unspecified site Status: Acute (2) End of life care: Code(s): Z51.5 - Encounter for palliative care Status: Acute Assessment and Plan: [facility] working with our acute care physical therapist to ensure appropriate placement for patient (3) Failure to thrive: Qualifiers: Failure to thrive age range: in adult Qualified Code(s): R62.7 - Adult failure to thrive Status: Acute Assessment and Plan: Secondary to her end-stage breast cancer Patient not eating or drinking (4) MGUS (monoclonal gammopathy of unknown significance): Code(s): D47.2 - Monoclonal gammopathy Status: Acute Assessment and Plan: Unchanged (5) LENA (obstructive sleep apnea): Code(s): G47.33 - Obstructive sleep apnea (adult) (pediatric) Status: Acute Assessment and Plan: Use oxygen at nighttime Plan Patient continues to expressed desires of not wanting any interventions. She reports living by herself and at this time she is unable to care for herself secondary to ongoing weakness and fatigue. Ms. Newell tells me that she is working with [facility] at this time, looking for placement. DS: Summary Hospital Course Reason for hospitalization: This is a 73-year-old female with past medical history significant for end-stage breast cancer.? Patient presents to the emergency room due to generalized weakness, has been having melena for several days, poor per orally intake, poor appetite. Hospital Course: Patient is a hospice patient but lives by herself has not been able to prepare meals.? Patient does not want any interventions but desires to have more help at home someone that can come stay and check in with her everyday.? Patient has been admitted for further management. Plan Patient does not want any interventions desires to continue hospice however does not have social support, lives by herself needs daily help. Pt with [facility] who is working with care coordination to find placement. Time Spent With Patient Time with patient: 25 - 35 minutes Subjective Date/time seen: 07/14/23? 0850 Interval history: This elderly, pleasant female pt is examined at the bedside in interval assessment after being admitted to the hospital with End of life care. Pt. was at home on hospice, under [facility], where she lives independently. She has now gotten to the point where she can no longer care for herself at home, and was found yesterday by the hospice company sitting at home covered in stool so she was brought to the ER to assist with placement and subsequently admitted with a dx of end of life care secondary to her end stage breast cancer and she does not wish to have any further treatment or workup for anything. She just wants to be comfortable. Hospice service is working with our Care Coordination to find pt placement elsewhere and where she can continue her Hospice. Pt is A&Ox4 and adamantly declines any further treatment or workup at this time. Interval Hx:?07/15/2023 ?I assumed care for pt today, she is up using the Bedside commode, in no acute distress, she denies any overnight events. Pt continues to request assistance with comfort, she still does not desire hospice. She denies any c/o or concerns at this time. Time Spent with Patient Time attestation: Total time spent providing and/or coordinating discharge services: Exam Narrative: CONSTITUTIONAL: Elderly, chronically ill appearing female lying supine in bed at this time. She appears very tired. HEENT: Head is atraumatic and normocephalic without any hematomas, contusions or lesions. Dry mucous membranes, and patent oropharynx. EYES: PERRLA, EOM's intact. NECK: Supple and FROM. No LN and no JV
[2023-07-16 15:51] VITALS: BP 120/80; PULSE 126; RESP 16; O2SAT 99
[2023-07-16] MEDS: HEPARIN SODIUM LOCK FLUSH 500 UNITS/5 ML SYRINGE IV PUSH (15:57)
== END 2023-07-16 16:58 | disposition hospice, inpatient (51) ==
LOC: ANHED 19:08 → ANH3MED 21:11
PROVIDERS: Admitting Provider Internal Medicine; Emergency Provider Physician Assistant; PCP Family Medicine; Visit Provider Nurse Practitioner Adult Health
DX: R62.7 Adult failure to thrive (principal); Z51.5 Encounter for palliative care; C79.9 Secondary malignant neoplasm of unspecified site; C50.919 Malignant neoplasm of unspecified site of unspecified female breast; D47.2 Monoclonal gammopathy; G47.33 Obstructive sleep apnea (adult) (pediatric); Z68.25 Body mass index [BMI] 25.0-25.9, adult; J44.9 Chronic obstructive pulmonary disease, unspecified; I12.9 Hypertensive chronic kidney disease with stage 1 through stage 4 chronic kidney disease, or unspecified chronic kidney disease; E11.22 Type 2 diabetes mellitus with diabetic chronic kidney disease; N18.4 Chronic kidney disease, stage 4 (severe); E78.2 Mixed hyperlipidemia; K21.9 Gastro-esophageal reflux disease without esophagitis; R63.0 Anorexia; Z79.82 Long term (current) use of aspirin; Z79.51 Long term (current) use of inhaled steroids; Z87.891 Personal history of nicotine dependence; Z79.891 Long term (current) use of opiate analgesic; Z79.899 Other long term (current) drug therapy
CPT/HCPCS: 36415; 80053; 82948; 85025; 94640; 96361; 96374; 96375; 96376; 99285; A9270; G0378; J1170; J1642; J2405; J7030